=== PATIENT | female | born 1935 | race Caucasian/White ===

== ENCOUNTER 2016-12-12 08:07 | Emergency (ER) | payer MEDICARE, BC ==
[2016-12-12] MEDS ORDERED: SODIUM CHLORIDE 0.9% 500 ML IV STA (08:31)
--- NOTE | 2016-12-12 08:33 | ED ---
Abdominal Pain HPI - General Chief Complaint: Abdominal Pain Stated Complaint: abdominal pain Time Seen by Provider: 12/12/16 08:15 Source: patient, RN notes reviewed Mode of arrival: ambulatory Limitations: no limitations - History of Present Illness Initial Comments: 81-year-old female presents emergency Department with chief complaint of lower abdominal pain. Patient states she woke up with pain and swelling. Patient denies any dysuria, hematuria. Denies nausea, vomiting, diarrhea, constipation , fever, chills, back and flank pain. the room states that she has baseline confusion and bowel and bladder incontinence secondary to brain aneurysm. He states that she has recurrent urinary tract infections. She is rashes in her genital region she denies any other complaints at this time - Related Data Home Medications Medication Instructions Recorded Confirmed Aspirin [Aspirin] 162 mg PO DAILY 09/17/13 12/12/16 Atenolol 12.5 mg PO DAILY 09/17/13 12/12/16 Cranberry Conc/C/Bacill Coag 4,200 mg PO BID 09/17/13 12/12/16 [Cranberry Tablet] Docusate Sodium [Stool Softener] 300 mg PO DAILY 09/17/13 12/12/16 Famotidine [Pepcid] 20 mg PO DAILY 09/17/13 12/12/16 Melatonin 10 mg PO HS 09/17/13 12/12/16 Pravastatin Sodium [Pravachol] 20 mg PO DAILY 09/17/13 12/12/16 Vitamin A 8,000 unit PO BID 09/17/13 12/12/16 amLODIPine [Norvasc] 10 mg PO DAILY 09/17/13 12/12/16 hydrALAZINE HCL [Apresoline] 50 mg PO TID 09/17/13 12/12/16 Oxybutynin Chloride [Oxybutynin 10 mg PO DAILY 03/21/15 12/12/16 Chloride ER] Cephalexin [Keflex] 250 mg PO DAILY 12/12/16 12/12/16 LORazepam [Ativan] 0.5 mg PO HS 12/12/16 12/12/16 cloNIDine 0.1 MG/24HR PATCH 1 patch TRANSDERM SA 12/12/16 12/12/16 [Catapres-TTS] Previous Rx's Medication Instructions Recorded Nitrofurantoin Monohyd/M-Cryst 100 mg PO Q12HR #14 cap 12/12/16 [Macrobid] Allergies Allergy/AdvReac Type Severity Reaction Status Date / Time aloe vera Allergy Unknown Verified 12/12/16 08:54 amlodipine besylate Allergy Unknown Verified 12/12/16 08:54 [From Norvasc] cyclobenzaprine Allergy Unknown Verified 12/12/16 08:54 [Cyclobenzaprine] diclofenac Allergy Unknown Verified 12/12/16 08:54 hydrochlorothiazide Allergy Unknown Verified 12/12/16 08:54 [From Zestoretic] latex Allergy Unknown Verified 12/12/16 08:54 levofloxacin [From Levaquin] Allergy Unknown Verified 12/12/16 08:54 lisinopril Allergy Unknown Verified 12/12/16 08:54 mesalamine [From Asacol] Allergy Unknown Verified 12/12/16 08:54 sulfamethoxazole Allergy Unknown Verified 12/12/16 08:54 [From Bactrim] trimethoprim [From Bactrim] Allergy Unknown Verified 12/12/16 08:54 Review of Systems ROS Statement: Those systems with pertinent positive or pertinent negative responses have been documented in the HPI. ROS Other: All systems not noted in ROS Statement are negative. Past Medical History Past Medical History: Coronary Artery Disease (CAD), CVA/TIA, Deep Vein Thrombosis (DVT), GERD/Reflux, Hypertension Additional Past Medical History / Comment(s): constipation, brain aneurysm, urinary tract infections History of Any Multi-Drug Resistant Organisms: None Reported Additional Past Surgical History / Comment(s): brain, artem filter, hysterectomy Past Psychological History: No Psychological Hx Reported Smoking Status: Current every day smoker Past Alcohol Use History: None Reported Past Drug Use History: None Reported General Exam General appearance: alert, in no apparent distress Respiratory exam: Present: normal lung sounds bilaterally. Absent: respiratory distress, wheezes, rales, rhonchi, stridor Cardiovascular Exam: Present: regular rate, normal rhythm, normal heart sounds. Absent: systolic murmur, diastolic murmur, rubs, gallop, clicks GI/Abdominal exam: Present: soft, normal bowel sounds. Absent: distended, tenderness, guarding, rebound, rigid Back exam: Absent: CVA tenderness (R), CVA tenderness (L) Skin exam: Present: warm, dry, intact, normal color. Absent: rash Course Vital Signs 12/12/16 12/12/16 08:09 09:14 Temperature 99 F Pulse Rate 67 66 Respiratory 18 20 Rate Blood Pressure 150/66 128/67 O2 Sat by Pulse 98 Oximetry Medical Decision Making - Medical Decision Making 81-year-old female presented emergency from for lower abdominal pain. Patient has UTI. Patient be placed on antibiotics and discharged return parameters were discussed. - Lab Data Result diagrams: 12/12/16 08:28 12/12/16 08:28 Lab Results 12/12/16 12/12/16 12/12/16 Range/Units 08:28 08:28 08:41 WBC 7.1 (3.8-10.6) k/uL RBC 4.26 (3.80-5.40) m/uL Hgb 12.8 (11.4-16.0) gm/dL Hct 39.5 (34.0-46.0) % MCV 92.8 (80.0-100.0) fL MCH 30.2 (25.0-35.0) pg MCHC 32.5 (31.0-37.0) g/dL RDW 14.3 (11.5-15.5) % Plt Count 258 (150-450) k/uL Neutrophils % 68 % Lymphocytes % 19 % Monocytes % 9 % Eosinophils % 2 % Basophils % 1 % Neutrophils # 4.8 (1.3-7.7) k/uL Lymphocytes # 1.3 (1.0-4.8) k/uL Monocytes # 0.6 (0-1.0) k/uL Eosinophils # 0.1 (0-0.7) k/uL Basophils # 0.1 (0-0.2) k/uL Sodium 146 H (137-145) mmol/L Potassium 4.5 (3.5-5.1) mmol/L Chloride 111 H (98-107) mmol/L Carbon Dioxide 26 (22-30) mmol/L Anion Gap 9 mmol/L BUN 44 H (7-17) mg/dL Creatinine 1.09 H (0.52-1.04) mg/dL Est GFR (MDRD) Af Amer 59 (>60 ml/min/1.73 sqM) Est GFR (MDRD) Non-Af 48 (>60 ml/min/1.73 sqM) Glucose 83 (74-99) mg/dL Calcium 9.8 (8.4-10.2) mg/dL Total Bilirubin 0.5 (0.2-1.3) mg/dL AST 24 (14-36) U/L ALT 30 (9-52) U/L Alkaline Phosphatase 51 (38-126) U/L Total Protein 7.5 (6.3-8.2) g/dL Albumin 4.3 (3.5-5.0) g/dL Amylase 83 (30-110) U/L Lipase 100 (23-300) U/L Urine Color Yellow Urine Appearance Turbid H (Clear) Urine pH 6.0 (5.0-8.0) Ur Specific [place] 1.016 (1.001-1.035) Urine Protein 1+ H (Negative) Urine Glucose (UA) Negative (Negative) Urine Ketones Negative (Negative) Urine Blood Trace H (Negative) Urine Nitrite Negative (Negative) Urine Bilirubin Negative (Negative) Urine Urobilinogen <2.0 (<2.0) mg/dL Ur Leukocyte Esterase Large H (Negative) Urine RBC 7 H (0-5) /hpf Urine WBC >182 H (0-5) /hpf Urine WBC Clumps Many H (None) /hpf Urine Bacteria Few H (None) /hpf Urine Mucus Rare H (None) /hpf Disposition Clinical Impression: UTI (urinary tract infection) Disposition: HOME SELF-CARE Condition: Stable Instructions: Urinary Tract Infection in Women (ED) Additional Instructions: Please return to the Emergency Department if symptoms worsen or any other concerns. Prescriptions: Nitrofurantoin Monohyd/M-Cryst [Macrobid] 100 mg PO Q12HR #14 cap Referrals: Unruly Beltran MD [Primary Care Provider] - 1-2 days Time of Disposition: 09:37
[2016-12-12 08:45] LABS: Basophils # (A) 0.1 k/uL (0-0.2); Basophils % (A) 1 %; CH 30.6; CHCM 33.2; Eosinophils # (A) 0.1 k/uL (0-0.7); Eosinophils % (A) 2 %; HCT 39.5 % (34.0-46.0); HDW 2.22; HGB 12.8 gm/dL (11.4-16.0); Luc # (Auto) 0.17; Luc % (Auto) 2; Lymphocytes # (A) 1.3 k/uL (1.0-4.8); Lymphocytes % (A) 19 %; MCH 30.2 pg (25.0-35.0); MCHC 32.5 g/dL (31.0-37.0); MCV 92.8 fL (80.0-100.0); Mean Platelet Volume 7.9; Monocytes # (A) 0.6 k/uL (0-1.0); Monocytes % (A) 9 %; Neutrophils # (A) 4.8 k/uL (1.3-7.7); Neutrophils % (A) 68 %; RBC 4.26 m/uL (3.80-5.40); RDW 14.3 % (11.5-15.5); WBC 7.1 k/uL (3.8-10.6)
[2016-12-12 09:07] LABS: Appearance,Urine Turbid (Clear); Bacteria,Urine Few /hpf; Bilirubin,Urine Negative (Negative); Glucose,Urine (UA) Negative (Negative); Ketones,Urine Negative (Negative); Leukocyte Esterase,Urine Large (Negative); Mucus,Urine Rare /hpf; Nitrite,Urine Negative (Negative); Particle Count 61440; Protein,Urine 1+ (Negative); RBC,Urine 7 /hpf (0-5); Specific Gravity,Urine 1.016 (1.001-1.035); UA Billing (MACRO vs. MICRO) MICRO; Urobilinogen,Urine <2.0 mg/dL (<2.0); WBC,Urine >182 /hpf (0-5)
[2016-12-12 09:10] LABS: Calcium 9.8 mg/dL (8.4-10.2); Potassium 4.5 mmol/L (3.5-5.1); Total Bilirubin 0.5 mg/dL (0.2-1.3); Total Protein 7.5 g/dL (6.3-8.2)
--- NOTE | 2016-12-12 09:19 | XR ---
EXAMINATION TYPE: XR KUB DATE OF EXAM: 12/12/2016 COMPARISON: 01/30/2012 INDICATION: Lower abdominal pain and swelling TECHNIQUE: Single view abdomen FINDINGS: Psoas margins are normal. No organomegaly is present. Shunt catheter is present. Filter is within the inferior vena cava region. Multiple splenic granuloma are present. Fecal debris is within the colon. Nonspecific small bowel gas is present. IMPRESSION: 1. Nonspecific abdomen.
[2016-12-12] MEDS ORDERED: fentaNYL (PF) 50 MCG/ML 5 ML AMP IVP STA (09:35)
[2016-12-12 09:52] VITALS: BP 127/68; PULSE 56; RESP 18; TEMP 97
== END 2016-12-12 09:52 | disposition home or self-care (01) ==
LOC: EC 08:07
DX: N39.0 Urinary tract infection, site not specified (principal); R10.30 Lower abdominal pain, unspecified; I25.10 Atherosclerotic heart disease of native coronary artery without angina pectoris; K21.9 Gastro-esophageal reflux disease without esophagitis; I10 Essential (primary) hypertension; F17.200 Nicotine dependence, unspecified, uncomplicated; Z86.718 Personal history of other venous thrombosis and embolism; Z86.73 Personal history of transient ischemic attack (TIA), and cerebral infarction without residual deficits; Z79.82 Long term (current) use of aspirin; Z79.899 Other long term (current) drug therapy; Z88.1 Allergy status to other antibiotic agents; Z88.2 Allergy status to sulfonamides; Z88.8 Allergy status to other drugs, medicaments and biological substances; Z91.048 Other nonmedicinal substance allergy status; Z90.710 Acquired absence of both cervix and uterus
CPT/HCPCS: 36415; 74000; 80053; 81001; 82150; 83690; 85025; 96360; 99284

== ENCOUNTER 2019-02-18 14:13 | Emergency (ER) | payer MEDICARE, BC ==
[2019-02-18 14:21] VITALS: BP 140/75; PULSE 73; RESP 20; TEMP 98
[2019-02-18] MEDS ORDERED: Acetaminophen-Codeine 300-30mg TAB PO STA (14:45)
--- NOTE | 2019-02-18 15:05 | ED ---
General Adult HPI - General Chief complaint: Fall Stated complaint: fall down steps, rt side pain Time Seen by Provider: 02/18/19 14:22 Source: patient, RN notes reviewed, old records reviewed Mode of arrival: ambulatory Limitations: no limitations - History of Present Illness Initial comments: 83-year-old female patient with a past medical history significant for brain aneurysm which was coiled presents to ED from mechanical fall. Patient reports that she was walking down her front steps. States that they are approximately 4 inches high. Patient reports that she stumbled losing her balance fell forward. Patient reports that she fell on her right anterior chest region. Patient reports that she has pain in this region.. Patient denies any trauma to head or neck. Patient denies any use of blood thinners. Denies any shortness of breath. Systemic: Pt denies fatigue, fever/chills, rash. Pt denies weakness, night sweats, weight loss. Neuro: Pt denies headache, visual disturbances, syncope or pre-syncope. HEENT: Pt denies ocular discharge or irritation, otalgia, rhinorrhea, pharyngitis or notable lymphadenopathy. Cardiopulmonary: Pt denies SOB, heart palpitations, dyspnea on exertion. Abdominal/GI: Pt denies abdominal pain, n/v/d. : Pt denies dysuria, burning w/ urination, frequency/urgency. Denies new onset urinary or bowel incontinence. MSK: Pt denies myalgia, loss of strength or function in extremities. Neuro: Pt denies new onset weakness, paresthesias. - Related Data Home Medications Medication Instructions Recorded Confirmed Aspirin 162 mg PO DAILY 09/17/13 12/12/16 Atenolol 12.5 mg PO DAILY 09/17/13 12/12/16 Cranberry Conc/C/Bacill Coag 4,200 mg PO BID 09/17/13 12/12/16 [Cranberry Tablet] Docusate Sodium [Stool Softener] 300 mg PO DAILY 09/17/13 12/12/16 Famotidine [Pepcid] 20 mg PO DAILY 09/17/13 12/12/16 Melatonin 10 mg PO HS 09/17/13 12/12/16 Pravastatin Sodium [Pravachol] 20 mg PO DAILY 09/17/13 12/12/16 Vitamin A 8,000 unit PO BID 09/17/13 12/12/16 amLODIPine [Norvasc] 10 mg PO DAILY 09/17/13 12/12/16 hydrALAZINE HCL [Apresoline] 50 mg PO TID 09/17/13 12/12/16 Oxybutynin Chloride [Oxybutynin 10 mg PO DAILY 03/21/15 12/12/16 Chloride ER] Cephalexin [Keflex] 250 mg PO DAILY 12/12/16 12/12/16 LORazepam [Ativan] 0.5 mg PO HS 12/12/16 12/12/16 cloNIDine 0.1 MG/24HR PATCH 1 patch TRANSDERM SA 12/12/16 12/12/16 [Catapres-TTS] Previous Rx's Medication Instructions Recorded Nitrofurantoin Monohyd/M-Cryst 100 mg PO Q12HR #14 cap 12/12/16 [Macrobid] Allergies Allergy/AdvReac Type Severity Reaction Status Date / Time aloe vera Allergy Unknown Verified 02/18/19 14:21 amlodipine besylate Allergy Unknown Verified 02/18/19 14:21 [From Norvasc] cyclobenzaprine Allergy Unknown Verified 02/18/19 14:21 [Cyclobenzaprine] diclofenac Allergy Unknown Verified 02/18/19 14:21 hydrochlorothiazide Allergy Unknown Verified 02/18/19 14:21 [From Zestoretic] latex Allergy Unknown Verified 02/18/19 14:21 levofloxacin [From Levaquin] Allergy Unknown Verified 02/18/19 14:21 lisinopril Allergy Unknown Verified 02/18/19 14:21 mesalamine [From Asacol] Allergy Unknown Verified 02/18/19 14:21 sulfamethoxazole Allergy Unknown Verified 02/18/19 14:21 [From Bactrim] trimethoprim [From Bactrim] Allergy Unknown Verified 02/18/19 14:21 Review of Systems ROS Statement: Those systems with pertinent positive or pertinent negative responses have been documented in the HPI. ROS Other: All systems not noted in ROS Statement are negative. Past Medical History Past Medical History: Coronary Artery Disease (CAD), CVA/TIA, Deep Vein Thrombosis (DVT), GERD/Reflux, Hypertension Additional Past Medical History / Comment(s): constipation, brain aneurysm, urinary tract infections History of Any Multi-Drug Resistant Organisms: None Reported Additional Past Surgical History / Comment(s): brain, artem filter, hysterectomy Past Psychological History: No Psychological Hx Reported Smoking Status: Current every day smoker Past Alcohol Use History: None Reported Past Drug Use History: None Reported General Exam - General Exam Comments Initial Comments: Constitutional: NAD, AOX3, Pt has pleasant affect. HEENT: NC/AT, trachea midline, neck supple, no lymphadenopathy. Posterior pharynx non erythematous, without exudates. External ears appear normal, without discharge. Mucous membranes moist. Eyes PERRLA, EOM intact. There is no scleral icterus. No pallor noted. Cardiopulmonary: RRR, no murmurs, rubs or gallops, no JVD noted. Lungs CTAB in anterior and posterior bateman. No peripheral edema. Right anterior chest region mildly tender to palpation. No ecchymoses. No crepitus. Abdominal exam: Abdomen soft and non-distended. Abdomen non-tender to palpation in all 4 quadrants. Bowel sounds active in LLQ. No hepatosplenomegaly. No ecchymosis Neuro: CN II-XII grossly intact. No nuchal rigidity. No raccon eyes, no moore sign, no hemotympanum. No cervical spinal tenderness. MSK: No posterior calf tenderness bilaterally, homans sign negative bilaterally. Posterior tibialis and radial pulse +2 bilaterally. Sensation intact in upper and lower extremities. Full active ROM in upper and lower extremities, 5/5 stregnth. Limitations: no limitations Course Vital Signs 02/18/19 14:18 Temperature 98.0 F Pulse Rate 73 Respiratory 20 Rate Blood Pressure 140/75 O2 Sat by Pulse 97 Oximetry Medical Decision Making - Medical Decision Making 83-year-old female patient with a past medical history significant for brain aneurysm which was coiled presents to ED from mechanical fall. Patient reports that she was walking down her front steps. States that they are approximately 4 inches high. Patient reports that she stumbled losing her balance fell forward. Patient reports that she fell on her right anterior chest region. Patient reports that she has pain in this region.. Patient denies any trauma to head or neck. Patient denies any use of blood thinners. Denies any shortness of breath. Patient vital signs stable, afebrile. Physical exam displayed: Lungs CTAB in anterior and posterior bateman. No peripheral edema. Right anterior chest region mildly tender to palpation. No ecchymoses. No crepitus. Chest revealed no acute cardiopulmonary process. Patient likely experiencing muscle skeletal pain. Patient was discharged with follow-up with primary care provider. Return to ER condition worsens. Case discussed with Dr. Barrett. Disposition Clinical Impression: Fall Disposition: HOME SELF-CARE Condition: Stable Instructions (If sedation given, give patient instructions): Fall Prevention (ED) Additional Instructions: Patient to adhere to previously discussed treatment plan and will take medication(s) as directed. Patient to follow up with PCP in 1-2 days. Patient to return to ED if symptoms do not improve. Follow-up with primary care provider tomorrow. Return to ER if condition worsens. Is patient prescribed a controlled substance at d/c from ED?: No Referrals: Unruly Beltran MD [Primary Care Provider] - 1-2 days
--- NOTE | 2019-02-18 15:23 | XR ---
EXAMINATION TYPE: XR chest 2V DATE OF EXAM: 02/18/2019 COMPARISON: 09/17/2013 HISTORY: Right-sided pain after a fall today TECHNIQUE: Frontal and lateral views of the chest are obtained. FINDINGS: There is no focal air space opacity, pleural effusion, or pneumothorax seen. The cardiac silhouette size is upper limits of normal. Mild multilevel degenerative changes of the spine. The os seous structures are intact. Ventriculoperitoneal drainage catheter overlies the right hemithorax wit hout discontinuity or calcifications. IMPRESSION: No acute cardiopulmonary process.
[2019-02-18] MEDS ORDERED: ACET/COD 300 MG/30 MG STARTER PACK 6 TAB BTL PO STA (15:44)
== END 2019-02-18 15:55 | disposition home or self-care (01) ==
LOC: EC 14:13
DX: R07.89 Other chest pain (principal); I25.10 Atherosclerotic heart disease of native coronary artery without angina pectoris; I10 Essential (primary) hypertension; K21.9 Gastro-esophageal reflux disease without esophagitis; K59.00 Constipation, unspecified; F17.200 Nicotine dependence, unspecified, uncomplicated; Z88.1 Allergy status to other antibiotic agents; Z88.2 Allergy status to sulfonamides; Z88.6 Allergy status to analgesic agent; Z88.8 Allergy status to other drugs, medicaments and biological substances; Z91.040 Latex allergy status; Z91.048 Other nonmedicinal substance allergy status; Z79.82 Long term (current) use of aspirin; Z79.899 Other long term (current) drug therapy; Z87.440 Personal history of urinary (tract) infections; Z86.79 Personal history of other diseases of the circulatory system; Z95.828 Presence of other vascular implants and grafts; Z86.73 Personal history of transient ischemic attack (TIA), and cerebral infarction without residual deficits; W10.9XXA Fall (on) (from) unspecified stairs and steps, initial encounter; Y93.01 Activity, walking, marching and hiking; Y92.009 Unspecified place in unspecified non-institutional (private) residence as the place of occurrence of the external cause
CPT/HCPCS: 71046; 99284

== ENCOUNTER 2019-04-05 09:01 | Observation (INO) | payer MEDICARE, BC ==
[2019-04-05 09:11] VITALS: RESP 18
[2019-04-05] MEDS ORDERED: SODIUM CHLORIDE 0.9% 500 ML 500 ML IV STA (09:22)
--- NOTE | 2019-04-05 09:26 | ED ---
General Adult HPI - General Chief complaint: Abdominal Pain Stated complaint: abd pain Time Seen by Provider: 04/05/19 09:05 Source: patient, family, RN notes reviewed, old records reviewed Mode of arrival: ambulatory Limitations: no limitations - History of Present Illness Initial comments: This is an 83-year-old female presents emergency Department complaining of lower abdominal pain. Patient states is worse on the right than the left. Patient has had an appendectomy and a hysterectomy in the past. Patient states started 5 AM this morning he continues currently. Patient states she's had no nausea vomiting or diarrhea per patient denies any fever chills. Patient states the pain is still there but not as bad as it was earlier. Patient denies any chest pain difficulty breathing shortest breath per patient denies any lightheadedness or dizziness. Patient denies any back pain. Patient denies any dysuria hematuria urinary frequency. - Related Data Home Medications Medication Instructions Recorded Confirmed Aspirin 162 mg PO DAILY 09/17/13 12/12/16 Atenolol 12.5 mg PO DAILY 09/17/13 12/12/16 Cranberry Conc/C/Bacill Coag 4,200 mg PO BID 09/17/13 12/12/16 [Cranberry Tablet] Docusate Sodium [Stool Softener] 300 mg PO DAILY 09/17/13 12/12/16 Famotidine [Pepcid] 20 mg PO DAILY 09/17/13 12/12/16 Melatonin 10 mg PO HS 09/17/13 12/12/16 Pravastatin Sodium [Pravachol] 20 mg PO DAILY 09/17/13 12/12/16 Vitamin A 8,000 unit PO BID 09/17/13 12/12/16 amLODIPine [Norvasc] 10 mg PO DAILY 09/17/13 12/12/16 hydrALAZINE HCL [Apresoline] 50 mg PO TID 09/17/13 12/12/16 Oxybutynin Chloride [Oxybutynin 10 mg PO DAILY 03/21/15 12/12/16 Chloride ER] Cephalexin [Keflex] 250 mg PO DAILY 12/12/16 12/12/16 LORazepam [Ativan] 0.5 mg PO HS 12/12/16 12/12/16 cloNIDine 0.1 MG/24HR PATCH 1 patch TRANSDERM SA 12/12/16 12/12/16 [Catapres-TTS] Previous Rx's Medication Instructions Recorded Nitrofurantoin Monohyd/M-Cryst 100 mg PO Q12HR #14 cap 12/12/16 [Macrobid] Allergies Allergy/AdvReac Type Severity Reaction Status Date / Time aloe vera Allergy Unknown Verified 04/05/19 09:06 amlodipine besylate Allergy Unknown Verified 04/05/19 09:06 [From Norvasc] cyclobenzaprine Allergy Unknown Verified 04/05/19 09:06 [Cyclobenzaprine] diclofenac Allergy Unknown Verified 04/05/19 09:06 hydrochlorothiazide Allergy Unknown Verified 04/05/19 09:06 [From Zestoretic] latex Allergy Unknown Verified 04/05/19 09:06 levofloxacin [From Levaquin] Allergy Unknown Verified 04/05/19 09:06 lisinopril Allergy Unknown Verified 04/05/19 09:06 mesalamine [From Asacol] Allergy Unknown Verified 04/05/19 09:06 sulfamethoxazole Allergy Unknown Verified 04/05/19 09:06 [From Bactrim] trimethoprim [From Bactrim] Allergy Unknown Verified 04/05/19 09:06 Review of Systems ROS Statement: Those systems with pertinent positive or pertinent negative responses have been documented in the HPI. ROS Other: All systems not noted in ROS Statement are negative. Past Medical History Past Medical History: Coronary Artery Disease (CAD), CVA/TIA, Deep Vein Thrombosis (DVT), GERD/Reflux, Hypertension Additional Past Medical History / Comment(s): constipation, brain aneurysm, urinary tract infections History of Any Multi-Drug Resistant Organisms: None Reported Additional Past Surgical History / Comment(s): brain, artem filter, hysterectomy Past Psychological History: No Psychological Hx Reported Smoking Status: Former smoker Past Alcohol Use History: None Reported Past Drug Use History: None Reported General Exam - General Exam Comments Initial Comments: GENERAL: Patient is well-developed and well-nourished. Patient is nontoxic and well- hydrated and is in mild distress. ENT: Neck is soft and supple. No significant lymphadenopathy is noted. Oropharynx is clear. Moist mucous membranes. Neck has full range of motion without eliciting any pain. EYES: The sclera were anicteric and conjunctiva were pink and moist. Extraocular movements were intact and pupils were equal round and reactive to light. Eyelids were unremarkable. PULMONARY: Unlabored respirations. Good breath sounds bilaterally. No audible rales rhonchi or wheezing was noted. CARDIOVASCULAR: There is a regular rate and rhythm without any murmurs gallops or rubs. ABDOMEN: Patient has tenderness across the lower quadrants worse on the right than the left. SKIN: Skin is clear with no lesions or rashes and otherwise unremarkable. NEUROLOGIC: Patient is alert and oriented x3. Cranial nerves II through XII are grossly intact. Motor and sensory are also intact. Normal speech, volume and content. Symmetrical smile. MUSCULOSKELETAL: Normal extremities with adequate strength and full range of motion. No lower extremity swelling or edema. No calf tenderness. LYMPHATICS: No significant lymphadenopathy is noted PSYCHIATRIC: Normal psychiatric evaluation. Limitations: no limitations Course Vital Signs 04/05/19 04/05/19 09:07 11:50 Temperature 98 F Pulse Rate 80 96 Respiratory 18 18 Rate Blood Pressure 170/97 147/95 O2 Sat by Pulse 95 98 Oximetry Medical Decision Making - Medical Decision Making Computed tomography scan shows some free fluid in the right adnexa as well as some thickened bowel. I went back and reexamined the patient she still was exquisitely tender right lower quadrant and this point time I spoke with Dr. Damon and consult surgery and wrote admitting orders. - Lab Data Result diagrams: 04/05/19 09:43 04/05/19 09:43 Lab Results 04/05/19 04/05/19 04/05/19 Range/Units 09:43 09:43 09:43 WBC 6.8 (3.8-10.6) k/uL RBC 4.55 (3.80-5.40) m/uL Hgb 13.3 (11.4-16.0) gm/dL Hct 40.4 (34.0-46.0) % MCV 88.7 (80.0-100.0) fL MCH 29.3 (25.0-35.0) pg MCHC 33.0 (31.0-37.0) g/dL RDW 14.0 (11.5-15.5) % Plt Count 308 (150-450) k/uL Neutrophils % 68 % Lymphocytes % 16 % Monocytes % 9 % Eosinophils % 2 % Basophils % 3 % Neutrophils # 4.6 (1.3-7.7) k/uL Lymphocytes # 1.1 (1.0-4.8) k/uL Monocytes # 0.6 (0-1.0) k/uL Eosinophils # 0.1 (0-0.7) k/uL Basophils # 0.2 (0-0.2) k/uL Sodium 143 (137-145) mmol/L Potassium 3.8 (3.5-5.1) mmol/L Chloride 107 (98-107) mmol/L Carbon Dioxide 26 (22-30) mmol/L Anion Gap 10 mmol/L BUN 17 (7-17) mg/dL Creatinine 0.81 (0.52-1.04) mg/dL Est GFR (CKD-EPI)AfAm 79 (>60 ml/min/1.73 sqM) Est GFR (CKD-EPI)NonAf 69 (>60 ml/min/1.73 sqM) Glucose 88 (74-99) mg/dL Plasma Lactic Acid Rick 1.0 (0.7-2.0) mmol/L Calcium 9.9 (8.4-10.2) mg/dL Total Bilirubin 0.4 (0.2-1.3) mg/dL AST 21 (14-36) U/L ALT 20 (9-52) U/L Alkaline Phosphatase 82 (38-126) U/L Total Protein 7.4 (6.3-8.2) g/dL Albumin 4.1 (3.5-5.0) g/dL Amylase 80 (30-110) U/L Lipase 113 (23-300) U/L Urine Color Urine Appearance (Clear) Urine pH (5.0-8.0) Ur Specific [place] (1.001-1.035) Urine Protein (Negative) Urine Glucose (UA) (Negative) Urine Ketones (Negative) Urine Blood (Negative) Urine Nitrite (Negative) Urine Bilirubin (Negative) Urine Urobilinogen (<2.0) mg/dL Ur Leukocyte Esterase (Negative) 04/05/19 Range/Units 10:32 WBC (3.8-10.6) k/uL RBC (3.80-5.40) m/uL Hgb (11.4-16.0) gm/dL Hct (34.0-46.0) % MCV (80.0-100.0) fL MCH (25.0-35.0) pg MCHC (31.0-37.0) g/dL RDW (11.5-15.5) % Plt Count (150-450) k/uL Neutrophils % % Lymphocytes % % Monocytes % % Eosinophils % % Basophils % % Neutrophils # (1.3-7.7) k/uL Lymphocytes # (1.0-4.8) k/uL Monocytes # (0-1.0) k/uL Eosinophils # (0-0.7) k/uL Basophils # (0-0.2) k/uL Sodium (137-145) mmol/L Potassium (3.5-5.1) mmol/L Chloride (98-107) mmol/L Carbon Dioxide (22-30) mmol/L Anion Gap mmol/L BUN (7-17) mg/dL Creatinine (0.52-1.04) mg/dL Est GFR (CKD-EPI)AfAm (>60 ml/min/1.73 sqM) Est GFR (CKD-EPI)NonAf (>60 ml/min/1.73 sqM) Glucose (74-99) mg/dL Plasma Lactic Acid Rick (0.7-2.0) mmol/L Calcium (8.4-10.2) mg/dL Total Bilirubin (0.2-1.3) mg/dL AST (14-36) U/L ALT (9-52) U/L Alkaline Phosphatase (38-126) U/L Total Protein (6.3-8.2) g/dL Albumin (3.5-5.0) g/dL Amylase (30-110) U/L Lipase (23-300) U/L Urine Color Light Yellow Urine Appearance Clear (Clear) Urine pH 7.0 (5.0-8.0) Ur Specific [place] 1.006 (1.001-1.035) Urine Protein Negative (Negative) Urine Glucose (UA) Negative (Negative) Urine Ketones Negative (Negative) Urine Blood Negative (Negative) Urine Nitrite Negative (Negative) Urine Bilirubin Negative (Negative) Urine Urobilinogen <2.0 (<2.0) mg/dL Ur Leukocyte Esterase Negative (Negative) Disposition Clinical Impression: Abdominal pain Disposition: ADMITTED IP TO THIS HOSP Referrals: Unruly Beltran MD [Primary Care Provider] - 1-2 days Time of Disposition: 12:02
[2019-04-05 10:02] LABS: Basophils # (A) 0.2 k/uL (0-0.2); Basophils % (A) 3 %; Eosinophils # (A) 0.1 k/uL (0-0.7); Eosinophils % (A) 2 %; HCT 40.4 % (34.0-46.0); HGB 13.3 gm/dL (11.4-16.0); Lymphocytes # (A) 1.1 k/uL (1.0-4.8); Lymphocytes % (A) 16 %; MCH 29.3 pg (25.0-35.0); MCV 88.7 fL (80.0-100.0); Mean Platelet Volume 7.1; Monocytes # (A) 0.6 k/uL (0-1.0); Monocytes % (A) 9 %; Neutrophils # (A) 4.6 k/uL (1.3-7.7); Neutrophils % (A) 68 %; Platelet Count 308 k/uL (150-450); RBC 4.55 m/uL (3.80-5.40); WBC 6.8 k/uL (3.8-10.6)
[2019-04-05 10:22] LABS: Albumin 4.1 g/dL (3.5-5.0); Calcium 9.9 mg/dL (8.4-10.2); Potassium 3.8 mmol/L (3.5-5.1); Total Bilirubin 0.4 mg/dL (0.2-1.3); Total Protein 7.4 g/dL (6.3-8.2)
[2019-04-05 11:10] LABS: Appearance,Urine Clear (Clear); Bilirubin,Urine Negative (Negative); Blood,Urine Negative (Negative); Color,Urine Light Yellow; Glucose,Urine (UA) Negative (Negative); Ketones,Urine Negative (Negative); Leukocyte Esterase,Urine Negative (Negative); Nitrite,Urine Negative (Negative); Protein,Urine Negative (Negative); Specific Gravity,Urine 1.006 (1.001-1.035); Urobilinogen,Urine <2.0 mg/dL (<2.0)
--- NOTE | 2019-04-05 11:37 | CT ---
EXAMINATION TYPE: CT abdomen pelvis w con DATE OF EXAM: 04/05/2019 COMPARISON: 09/17/2013 HISTORY: 83-year-old female with lower abdominal pain TECHNIQUE: Contiguous axial scanning of the abdomen and pelvis following administration of 100 ml Iso loki 300 IV contrast. Delayed images through the kidneys and coronal/sagittal reconstructions perform ed. CT DLP: 794.9 mGycm Automated exposure control for dose reduction was used. FINDINGS: Heart upper limits of normal in size with the interpretation. Some mild patchy peripheral right basil ar opacity, probably atelectasis. No pleural effusion. Small hiatal hernia. Few scattered calcified granulomas within the liver. More numerous calcified granulomas within the sp carolann. No biliary ductal dictation. Portal venous system is patent. Gallbladder, adrenal glands, and pancreas show no gross abnormality. A 4.4 cm posterior lower pole right renal cyst is increased in size from 3.6 cm, previously. Mild bilateral pelvicaliectasis, probably transient. Symmetric uptake and excretion of contrast from both kidneys. An IVC filter is present. Moderate atherosclerotic calcification of the abdominal aorta and iliac arteries without aneurysm. Right-sided [facility] shunt catheter enters the right mid to lower abdomen. No dilated small bowel, free fluid, or free air. No mesenteric or retroperitoneal lymphadenopathy. There is moderate to large stool burden. Left-sided colonic diverticulosis, most extensive within the sigmoid colon. No discrete pericolonic inflammation to suggest acute diverticulitis. Portions of the mandible are noted extending into the right adnexa. No evident abnormal fluid distent ion of the appendix. The distal aspect is obscured by adjacent bowel loops. Gisele of right adnexal free fluid is noted of unclear etiology. Focal circumferential wall thickening distal sigmoid colon, for example, refer to axial image 61 and sagittal image 53. Bladder are distended with mild wall thickening. Multiple pelvic phleboliths. Uterus surgically absen t. Neither ovary is visualized. Bones: Degenerative changes of the hips. Hypertrophic facet arthropathy mid to lower lumbar spine wit h severe degenerative disc disease L4-L5 and grade 1, nearly grade 2 anterolisthesis at this level. IMPRESSION: 1. LEFT-SIDED COLONIC DIVERTICULOSIS, EXTENSIVE WITHIN THE SIGMOID COLON. WHILE THERE ARE NO DISCRETE FINDINGS OF ACUTE DIVERTICULITIS, THERE IS SOME FOCAL WALL THICKENING ALONG THE DISTAL SIGMOID. NONS PECIFIC COLITIS AND NEOPLASM ARE IN THE DIFFERENTIAL. DIRECT VISUALIZATION WHEN PATIENT ABLE. 2. SMALL AMOUNT OF FREE FLUID WITHIN THE RIGHT ADNEXA. 3. THE APPENDIX IS VISUALIZED AND WHILE MILDLY THICKENED, EXTENDING DOWN INTO THE RIGHT ADNEXA, THERE IS NO ABNORMAL FLUID DISTENTION OR SURROUNDING INFLAMMATION. GIVEN THE ADJACENT RIGHT ADNEXAL FREE F LUID, CONSIDER SHORT INTERVAL CLINICAL AND IMAGING FOLLOW-UP INDICATED. 4. MODERATE TO LARGE STOOL BURDEN.
[2019-04-05] MEDS ORDERED: HYDROmorphone 0.5 MG/0.5 ML SYRINGE IVP STA (11:44)
[2019-04-05] MEDS ORDERED: SODIUM CHLORIDE 0.9% 1,000 ML IV ONE (12:03)
[2019-04-05] MEDS ORDERED: HYDROmorphone 0.5 MG/0.5 ML SYRINGE IVP PRN (12:04)
[2019-04-05] MEDS ORDERED: SENNOSIDES 8.6 MG TAB PO PRN (13:42)
[2019-04-05] MEDS ORDERED: DOCUSATE 100 MG CAP PO PRN (13:42)
--- NOTE | 2019-04-05 14:49 | P.HPIM ---
History of Present Illness H&P Date: 04/05/19 83 years old female with past medical history of coronary artery disease, CVA, history of cerebral aneurysm status post coiling, history of DVT with history of [place] filter, GERD, hypertension presents in with right lower quadrant abdominal pain started this morning. According to the at bedside patient does have constipation and has intermittent abdominal pain that improves with bowel regimen. Patient used to informed her about her bowel habits blood for the past 2 months past and is not keeping an eye on her bowel pattern. Patient denies any fever or chills, any diarrhea or melena. She denies any nausea or vomiting. Vitals suggest a temp of 98.2 pulse 72 blood pressure 157/100. Labs including a CBC CMP unremarkable. UA is negative for any acute infection. Patient is admitted in observation for evaluation by surgery as free adnexal fluid was noted on the CT abdomen. Left-sided colonic diverticulosis noted with focal wall thickening along the distal sigmoid. Direct visualization of the sigmoid area was recommended for nonspecific colitis versus name, pleasant. Moderate to large stone burden was noted. Patient is initiated on bowel regimen 8 daily and Dulcolax suppository as needed including Review of Systems Constitutional: Denies chills, Denies fever, Denies lethargy, Denies malaise, Denies poor appetite, Denies weakness, Denies weight loss Eyes: denies decreased vision, denies diplopia, denies discharge, denies pain Ears: deny: decreased hearing Ears, nose, mouth and throat: Denies dental pain, Denies headache, Denies nasal discharge, Denies nose pain Cardiovascular: Denies chest pain, Denies decreased exercise tolerance, Denies edema, Denies high blood pressure, Denies irregular heart beat, Denies palpitations, Denies paroxysmal nocturnal dyspnea, Denies rapid heart beat, Denies shortness of breath Respiratory: Denies congestion, Denies cough, Denies cough with sputum, Denies dyspnea, Denies home oxygen, Denies wheezing Gastrointestinal: Endorses abdominal pain, Denies change in bowel habits, Denies coffee ground emesis, Denies early satiety, Denies excessive gas, Denies heartburn, Denies hematemesis, Denies hematochezia, Denies loss of appetite, Denies nausea, Denies vomiting Genitourinary: Denies dysuria, Denies flank pain, Denies kidney stones, Denies menorrhagia, Denies urgency, Denies urinary frequency Musculoskeletal: Denies gait dysfunction, Denies limitation of motion, Denies morning stiffness, Denies muscle cramps Integumentary: Denies rash, Denies wounds, Denies brittle nails, Denies change in hair/nails, Denies darkening of skin Neurological: Denies balance difficulties, Denies change in speech, Denies double vision, Denies gait dysfunction, Denies loss of vision, Denies motor disturbance, Denies numbness, Denies paralysis, Denies paresthesias, Denies seizures Psychiatric: Denies anxiety, Denies depression Endocrine: Denies excessive sweating, Denies excessive thirst, Denies high blood sugars, Denies palpitations Hematologic/Lymphatic: Denies easy bruising, Denies lymphadenopathy Past Medical History Past Medical History: Coronary Artery Disease (CAD), CVA/TIA, Deep Vein Thrombosis (DVT), GERD/Reflux, Hypertension Additional Past Medical History / Comment(s): constipation, brain aneurysm, urinary tract infections History of Any Multi-Drug Resistant Organisms: None Reported Additional Past Surgical History / Comment(s): brain, artem filter, hysterectomy Past Psychological History: No Psychological Hx Reported Smoking Status: Former smoker Past Alcohol Use History: None Reported Past Drug Use History: None Reported Medications and Allergies Home Medications Medication Instructions Recorded Confirmed Type Aspirin 81 mg PO DAILY@1500 09/17/13 04/05/19 History Cranberry Conc/C/Bacill Coag 4,200 mg PO BID 09/17/13 04/05/19 History [Cranberry Tablet] Docusate Sodium [Stool Softener] 300 mg PO DAILY@1500 09/17/13 04/05/19 History Famotidine [Pepcid] 20 mg PO HS@1900 09/17/13 04/05/19 History Melatonin 10 mg PO HS@1900 09/17/13 04/05/19 History Pravastatin Sodium [Pravachol] 20 mg PO DAILY 09/17/13 04/05/19 History Vitamin A 8,000 unit PO BID 09/17/13 04/05/19 History amLODIPine [Norvasc] 10 mg PO DAILY 09/17/13 04/05/19 History hydrALAZINE HCL [Apresoline] 50 mg PO TID 09/17/13 04/05/19 History cloNIDine 0.1 MG/24HR PATCH 1 patch TRANSDERM SA 12/12/16 04/05/19 History [Catapres-TTS] Bifidobacterium Infantis [Align] 4 mg PO DAILY@1500 04/05/19 04/05/19 History Calcium Carbonate [Calcium] 600 mg PO DAILY@1500 04/05/19 04/05/19 History Metoprolol Succinate (ER) [Toprol 12.5 mg PO HS@1900 04/05/19 04/05/19 History Xl] Nitrofurantoin Monohyd/M-Cryst 100 mg PO DAILY 04/05/19 04/05/19 History [Macrobid] Vit A/Vit C/Vit E/Zinc/Copper 1 cap PO BID@0700,1900 04/05/19 04/05/19 History [ICAPS SOFTGEL] Allergies Allergy/AdvReac Type Severity Reaction Status Date / Time aloe vera Allergy Unknown Verified 04/05/19 12:43 amlodipine besylate Allergy Unknown Verified 04/05/19 12:43 [From Norvasc] cyclobenzaprine Allergy Unknown Verified 04/05/19 12:43 [Cyclobenzaprine] diclofenac Allergy Unknown Verified 04/05/19 12:43 hydrochlorothiazide Allergy Unknown Verified 04/05/19 12:43 [From Zestoretic] latex Allergy Unknown Verified 04/05/19 12:43 levofloxacin [From Levaquin] Allergy Unknown Verified 04/05/19 12:43 lisinopril Allergy Unknown Verified 04/05/19 12:43 mesalamine [From Asacol] Allergy Unknown Verified 04/05/19 12:43 sulfamethoxazole Allergy Unknown Verified 04/05/19 12:43 [From Bactrim] trimethoprim [From Bactrim] Allergy Unknown Verified 04/05/19 12:43 Physical Exam Vitals: Vital Signs Temp Pulse Pulse Resp BP BP Pulse Ox 04/05/19 12:58 98.2 F 72 18 157/100 97 04/05/19 11:50 96 18 147/95 98 04/05/19 09:07 98 F 80 18 170/97 95 Intake and Output 04/04/19 04/05/19 04/05/19 22:59 06:59 14:59 Other: # Voids 1 Weight 65.7 kg - Constitutional General appearance: cooperative, no acute distress, obese - EENT Eyes: anicteric sclerae, PERRLA, normal appearance ENT: hearing grossly normal - Neck Neck: no lymphadenopathy, normal ROM, no other, no rigidity, no stridor, no thyromegaly - Respiratory Respiratory: bilateral: CTA, negative: diminished, dullness, rales, rhonchi - Cardiovascular Rhythm: regular Heart sounds: normal: S1, S2 Abnormal Heart Sounds: no systolic murmur, no diastolic murmur, no rub, no S3 Gallop, no S4 Gallop, no click, no other - Gastrointestinal General gastrointestinal: normal bowel sounds, soft tender right lower quadrant radiating to the umbilicus. - Integumentary Integumentary: no rash - Neurologic Neurologic: CNII-XII intact - Musculoskeletal Musculoskeletal: gait normal, strength equal bilaterally - Psychiatric Psychiatric: A&O x's 3, appropriate affect Results CBC & Chem 7: 04/05/19 09:43 04/05/19 09:43 Thrombosis Risk Factor Assmnt - DVT/VTE Prophylaxis DVT/VTE Prophylaxis: Mechanical Prophylaxis ordered - Choose All That Apply Any of the Below Risk Factors Present?: No Other Risk Factors: Yes Each Risk Factor Represents 3 Points: Age 75 years or older Thrombosis Risk Factor Assessment Total Risk Factor Score: 3 Thrombosis Risk Factor Assessment Level: Moderate Risk Assessment and Plan Plan: #1 acute abdomen right lower quadrant secondary to constipation. Free fluid in the right adnexa could not be explained. We will have her surgery consulted for their recommendation on follow-up CT in few weeks for resolution of the adnexal fluid. We will start patient on Dulcolax suppository, senna Colace and MiraLAX #2 history of CVA continue aspirin and pravastatin #3 history of cerebral aneurysm s/p clipping #4 Vascular dementia secondary to CVA currenly not on any medication to be followed as outpatient #5 hypertension continue hydralazine, clonidine, metoprolol. Will be adjusted based on the blood pressure reading #6 insomnia continue melatonin 10 mg o daily #7 DVT prophylaxis mechanical prophylaxis #8 disposition patient would need 24 hours observation and can be discharged after evaluation by surgery if no intervention required
[2019-04-05] MEDS ORDERED: ASPIRIN 81 MG PO SCH (15:00)
[2019-04-05] MEDS ORDERED: DOCUSATE 100 MG CAP PO SCH (15:00)
[2019-04-05] MEDS ORDERED: LACTOBACILLUS ACIDOPH & BULGAR 1 EACH PACKET PO SCH (15:00)
[2019-04-05 15:41] VITALS: BP 160/90; PULSE 69; TEMP 97.3
--- NOTE | 2019-04-05 15:41 | P.DS ---
Providers Date of admission: 04/05/19 12:03 Attending physician: Tara Damon MD Consults: 04/05/19 12:03 Consult Physician Urgent Consulting Provider: Jovanni Macias Consult Reason/Comments: Abdominal pain Do you want consulting provider notified?: Yes Primary care physician: [facility] Course: 83 years old female with past medical history of coronary artery disease, CVA, history of cerebral aneurysm status post coiling, history of DVT with history of [place] filter, GERD, hypertension presents in with right lower quadrant abdominal pain started this morning. According to the at bedside patient does have constipation and has intermittent abdominal pain that improves with bowel regimen. Patient used to informed her about her bowel habits blood for the past 2 months past and is not keeping an eye on her bowel pattern. Patient denies any fever or chills, any diarrhea or melena. She denies any nausea or vomiting. Vitals suggest a temp of 98.2 pulse 72 blood pressure 157/100. Labs including a CBC CMP unremarkable. UA is negative for any acute infection. Patient is admitted in observation for evaluation by surgery as free adnexal fluid was noted on the CT abdomen. Left-sided colonic diverticulosis noted with focal wall thickening along the distal sigmoid. Direct visualization of the sigmoid area was recommended for nonspecific colitis versus name, pleasant. Moderate to large stone burden was noted. Patient is initiated on bowel regimen daily and Dulcolax suppository as needed. Patient was evaluated by surgery who recommended no surgical intervention with and plan for outpatient colonoscopy on Thursday. Patient will be prescribed GoLYTELY by the surgery team. Discharge diagnoses #1 acute abdomen right lower quadrant secondary to constipation. #2 Free fluid in the right adnexa with focal sigmoid thickening rule out neoplasm plan for colonoscopy as outpatient #2 history of CVA #3 history of cerebral aneurysm s/p clipping #4 Vascular dementia secondary to CVA #5 hypertension #6 insomnia Disposition - home Plan - Discharge Summary Discharge Rx Participant: No New Discharge Prescriptions: New Peg 3350-Na Sulf,Bicarb,Cl/KCl [Golytely Lavage] 4,000 ml PO DIRECTED #1 bottle Continue Famotidine [Pepcid] 20 mg PO HS@1900 Cranberry Conc/C/Bacill Coag [Cranberry Tablet] 4,200 mg PO BID Melatonin 10 mg PO HS@1900 Docusate Sodium [Stool Softener] 300 mg PO DAILY@1500 Aspirin 81 mg PO DAILY@1500 Vitamin A 8,000 unit PO BID Pravastatin Sodium [Pravachol] 20 mg PO DAILY hydrALAZINE HCL [Apresoline] 50 mg PO TID amLODIPine [Norvasc] 10 mg PO DAILY cloNIDine 0.1 MG/24HR PATCH [Catapres-TTS] 1 patch TRANSDERM SA Bifidobacterium Infantis [Align] 4 mg PO DAILY@1500 Calcium Carbonate [Calcium] 600 mg PO DAILY@1500 Metoprolol Succinate (ER) [Toprol XL] 12.5 mg PO HS@1900 Nitrofurantoin Monohyd/M-Cryst [Macrobid] 100 mg PO DAILY Vit A/Vit C/Vit E/Zinc/Copper [ICAPS SOFTGEL] 1 cap PO BID@0700,1900 Discharge Medication List Aspirin 81 mg PO DAILY@1500 09/17/13 [History] Cranberry Conc/C/Bacill Coag [Cranberry Tablet] 4,200 mg PO BID 09/17/13 [History] Docusate Sodium [Stool Softener] 300 mg PO DAILY@1500 09/17/13 [History] Famotidine [Pepcid] 20 mg PO HS@1900 09/17/13 [History] Melatonin 10 mg PO HS@1900 09/17/13 [History] Pravastatin Sodium [Pravachol] 20 mg PO DAILY 09/17/13 [History] Vitamin A 8,000 unit PO BID 09/17/13 [History] amLODIPine [Norvasc] 10 mg PO DAILY 09/17/13 [History] hydrALAZINE HCL [Apresoline] 50 mg PO TID 09/17/13 [History] cloNIDine 0.1 MG/24HR PATCH [Catapres-TTS] 1 patch TRANSDERM SA 12/12/16 [History] Bifidobacterium Infantis [Align] 4 mg PO DAILY@1500 04/05/19 [History] Calcium Carbonate [Calcium] 600 mg PO DAILY@1500 04/05/19 [History] Metoprolol Succinate (ER) [Toprol XL] 12.5 mg PO HS@1900 04/05/19 [History] Nitrofurantoin Monohyd/M-Cryst [Macrobid] 100 mg PO DAILY 04/05/19 [History] Peg 3350-Na Sulf,Bicarb,Cl/KCl [Golytely Lavage] 4,000 ml PO DIRECTED #1 bottle 04/05/19 [Rx] Vit A/Vit C/Vit E/Zinc/Copper [ICAPS SOFTGEL] 1 cap PO BID@0700,1900 04/05/19 [History] Follow up Appointment(s)/Referral(s): Unruly Beltran MD [Primary Care Provider] - 1-2 days Activity/Diet/Wound Care/Special Instructions: Outpatient colonoscopy scheduled for Thursday, April 11, 2019 Clear liquids only on Thursday. Nothing to eat or drink at midnight before your colonoscopy Begin your bowel prep Thursday. Surgical services will notify you with an arrival time Discharge Disposition: HOME SELF-CARE
[2019-04-05] MEDS ORDERED: hydrALAZINE HCL 50 MG TAB PO SCH (16:00)
--- NOTE | 2019-04-05 16:21 | P.GSCN ---
History of Present Illness Consult date: 04/05/19 Reason for Consult: abdominal pain Requesting physician: Jed Gavin History of present illness: CHIEF COMPLAINT: Abdominal pain HISTORY OF PRESENT ILLNESS: 83-year-old female who presented to the emergency room with a chief complaint of abdominal pain. Patient's is at the bedside and provides majority of HPI. He reports that the patient does have a history of constipation. The patient used to tell her each time she do bowel movement and he will keep track of it so that he could give her medications before she became too constipated. However, the patient has stopped doing this and will not inform her when she has a bowel movement. Maria M ent is unable to recall when her last bowel movement was. She denies abdominal pain. Denies nausea or vomiting. PAST MEDICAL HISTORY: See list. PAST SURGICAL HISTORY: See list. SOCIAL HISTORY: No illicit drug use. REVIEW OF SYSTEMS: CONSTITUTIONAL: Denies fever or chills. HEENT: Denies blurred vision, vision changes, or eye pain. Denies hemoptysis CARDIOVASCULAR: Denies chest pain or pressure. RESPIRATORY: No shortness of breath. GASTROINTESTINAL: Refer to HPI for pertinent findings HEMATOLOGIC: Denies bleeding disorders. GENITOURINARY: Denies any blood in urine. SKIN: Denies pruitis. Denies rash. PHYSICAL EXAM: VITAL SIGNS: Reviewed. GENERAL: Well-developed in no acute distress. HEENT: No sclera icterus. Extraocular movements grossly intact. Moist buccal mucosa. Head is atraumatic, normocephalic. ABDOMEN: Soft. Nondistended. Nontender. NEUROLOGIC: Alert and oriented. Cranial nerves II through XII grossly intact. LABORATORY DATA: WBC 6.8. Hemoglobin 13.3. Platelet count 308. IMAGING: CT abdomen and pelvis: Left-sided colonic diverticulosis, extensive within the sigmoid colon. Focal wall thickening along the distal sigmoid colon. Nonspecific Jose is a neoplasm in the differential. Small amount of free fluid within the right adnexa. Appendix is visualized well mildly thickened there is no abnormal fluid centers running inflammation. Moderate to large stool burden ASSESSMENT: 1. Abdominal pain 2. Constipation 3. Sigmoid diverticulosis with wall thickening visualized on computed tomography scan PLAN: Clear liquid diet. Advance as tolerated No surgical intervention recommended at this time Patient may be discharged home today from a surgical standpoint. Outpatient colonoscopy scheduled for Thursday April 11, 2019. Prescription for GoLYTELY bowel prep sent to patient's pharmacy. Discussed colonoscopy at bedside with patient and her . Instructed to have clear liquid diet only on Thursday. Nothing by mouth at midnight. Also instructed to begin bowel prep Thursday afternoon. Patients spouse and patient verbalized understanding. Nurse practitioner note has been reviewed by physician. Signing provider agrees with the documented findings, assessment, and plan of care. Past Medical History Past Medical History: Coronary Artery Disease (CAD), CVA/TIA, Deep Vein Thrombosis (DVT), GERD/Reflux, Hypertension Additional Past Medical History / Comment(s): constipation, brain aneurysm, urinary tract infections History of Any Multi-Drug Resistant Organisms: None Reported Additional Past Surgical History / Comment(s): brain, artem filter, hysterectomy Past Psychological History: No Psychological Hx Reported Smoking Status: Former smoker Past Alcohol Use History: None Reported Past Drug Use History: None Reported Medications and Allergies Home Medications Medication Instructions Recorded Confirmed Type Aspirin 81 mg PO DAILY@1500 09/17/13 04/05/19 History Cranberry Conc/C/Bacill Coag 4,200 mg PO BID 09/17/13 04/05/19 History [Cranberry Tablet] Docusate Sodium [Stool Softener] 300 mg PO DAILY@1500 09/17/13 04/05/19 History Famotidine [Pepcid] 20 mg PO HS@1900 09/17/13 04/05/19 History Melatonin 10 mg PO HS@1900 09/17/13 04/05/19 History Pravastatin Sodium [Pravachol] 20 mg PO DAILY 09/17/13 04/05/19 History Vitamin A 8,000 unit PO BID 09/17/13 04/05/19 History amLODIPine [Norvasc] 10 mg PO DAILY 09/17/13 04/05/19 History hydrALAZINE HCL [Apresoline] 50 mg PO TID 09/17/13 04/05/19 History cloNIDine 0.1 MG/24HR PATCH 1 patch TRANSDERM SA 12/12/16 04/05/19 History [Catapres-TTS] Bifidobacterium Infantis [Align] 4 mg PO DAILY@1500 04/05/19 04/05/19 History Calcium Carbonate [Calcium] 600 mg PO DAILY@1500 04/05/19 04/05/19 History Metoprolol Succinate (ER) [Toprol 12.5 mg PO HS@1900 04/05/19 04/05/19 History XL] Nitrofurantoin Monohyd/M-Cryst 100 mg PO DAILY 04/05/19 04/05/19 History [Macrobid] Peg 3350-Na Sulf,Bicarb,Cl/KCl 4,000 ml PO DIRECTED #1 bottle 04/05/19 Rx [Golytely Lavage] Vit A/Vit C/Vit E/Zinc/Copper 1 cap PO BID@0700,1900 04/05/19 04/05/19 History [ICAPS SOFTGEL] Allergies Allergy/AdvReac Type Severity Reaction Status Date / Time aloe vera Allergy Unknown Verified 04/05/19 12:43 amlodipine besylate Allergy Unknown Verified 04/05/19 12:43 [From Norvasc] cyclobenzaprine Allergy Unknown Verified 04/05/19 12:43 [Cyclobenzaprine] diclofenac Allergy Unknown Verified 04/05/19 12:43 hydrochlorothiazide Allergy Unknown Verified 04/05/19 12:43 [From Zestoretic] latex Allergy Unknown Verified 04/05/19 12:43 levofloxacin [From Levaquin] Allergy Unknown Verified 04/05/19 12:43 lisinopril Allergy Unknown Verified 04/05/19 12:43 mesalamine [From Asacol] Allergy Unknown Verified 04/05/19 12:43 sulfamethoxazole Allergy Unknown Verified 04/05/19 12:43 [From Bactrim] trimethoprim [From Bactrim] Allergy Unknown Verified 04/05/19 12:43 Surgical - Exam Vital Signs Temp Pulse Resp BP Pulse Ox 98 F 80 18 170/97 95 04/05/19 09:07 04/05/19 09:07 04/05/19 09:07 04/05/19 09:07 04/05/19 09:07 Results - Labs 04/05/19 09:43 04/05/19 09:43 Diabetes panel 04/05/19 Range/Units 09:43 Sodium 143 (137-145) mmol/L Potassium 3.8 (3.5-5.1) mmol/L Chloride 107 (98-107) mmol/L Carbon Dioxide 26 (22-30) mmol/L BUN 17 (7-17) mg/dL Creatinine 0.81 (0.52-1.04) mg/dL Glucose 88 (74-99) mg/dL Calcium 9.9 (8.4-10.2) mg/dL AST 21 (14-36) U/L ALT 20 (9-52) U/L Alkaline Phosphatase 82 (38-126) U/L Total Protein 7.4 (6.3-8.2) g/dL Albumin 4.1 (3.5-5.0) g/dL Calcium panel 04/05/19 Range/Units 09:43 Calcium 9.9 (8.4-10.2) mg/dL Albumin 4.1 (3.5-5.0) g/dL Pituitary panel 04/05/19 Range/Units 09:43 Sodium 143 (137-145) mmol/L Potassium 3.8 (3.5-5.1) mmol/L Chloride 107 (98-107) mmol/L Carbon Dioxide 26 (22-30) mmol/L BUN 17 (7-17) mg/dL Creatinine 0.81 (0.52-1.04) mg/dL Glucose 88 (74-99) mg/dL Calcium 9.9 (8.4-10.2) mg/dL Adrenal panel 04/05/19 Range/Units 09:43 Sodium 143 (137-145) mmol/L Potassium 3.8 (3.5-5.1) mmol/L Chloride 107 (98-107) mmol/L Carbon Dioxide 26 (22-30) mmol/L BUN 17 (7-17) mg/dL Creatinine 0.81 (0.52-1.04) mg/dL Glucose 88 (74-99) mg/dL Calcium 9.9 (8.4-10.2) mg/dL Total Bilirubin 0.4 (0.2-1.3) mg/dL AST 21 (14-36) U/L ALT 20 (9-52) U/L Alkaline Phosphatase 82 (38-126) U/L Total Protein 7.4 (6.3-8.2) g/dL Albumin 4.1 (3.5-5.0) g/dL
[2019-04-05] MEDS ORDERED: METOPROLOL SUCCINATE (ER) 25 MG TAB.ER.24H PO SCH (19:00)
[2019-04-05] MEDS ORDERED: MELATONIN 5 MG TABLET PO SCH (19:00)
[2019-04-05] MEDS ORDERED: FAMOTIDINE 20 MG TAB PO SCH (19:00)
[2019-04-05] MEDS ORDERED: BISACODYL 10 MG SUPP RECTAL SCH (21:00)
[2019-04-06] MEDS ORDERED: amLODIPine 10 MG TAB PO SCH (09:00)
[2019-04-06] MEDS ORDERED: PRAVASTATIN SODIUM 20 MG TAB PO SCH (09:00)
[2019-04-06] MEDS ORDERED: NITROFURANTOIN MONOHYD/M-CRYST 100 MG CAP PO SCH (09:00)
[2019-04-06] MEDS ORDERED: POLYETHYLENE GLYCOL 3350 17 GM POWD.PACK PO SCH (09:00)
[2019-04-09] MEDS ORDERED: cloNIDine 0.1 MG/24HR PATCH TRANSDERM SCH (09:00)
== END 2019-04-05 18:12 | disposition home or self-care (01) ==
LOC: EC 09:01 → 1SOBS 12:03
PROVIDERS: ADMIT Internal Medicine; ATTEND Internal Medicine
DX: K59.00 Constipation, unspecified (principal); R18.8 Other ascites; R93.3 Abnormal findings on diagnostic imaging of other parts of digestive tract; Z86.79 Personal history of other diseases of the circulatory system; Z95.828 Presence of other vascular implants and grafts; I69.198 Other sequelae of nontraumatic intracerebral hemorrhage; F01.50 Vascular dementia, unspecified severity, without behavioral disturbance, psychotic disturbance, mood disturbance, and anxiety; I10 Essential (primary) hypertension; G47.00 Insomnia, unspecified; K57.30 Diverticulosis of large intestine without perforation or abscess without bleeding; I25.10 Atherosclerotic heart disease of native coronary artery without angina pectoris; K21.9 Gastro-esophageal reflux disease without esophagitis; Z79.82 Long term (current) use of aspirin; Z79.899 Other long term (current) drug therapy; Z91.048 Other nonmedicinal substance allergy status; Z88.8 Allergy status to other drugs, medicaments and biological substances; Z91.040 Latex allergy status; Z88.1 Allergy status to other antibiotic agents; Z88.2 Allergy status to sulfonamides; Z86.718 Personal history of other venous thrombosis and embolism; Z87.440 Personal history of urinary (tract) infections; Z90.49 Acquired absence of other specified parts of digestive tract; Z90.710 Acquired absence of both cervix and uterus; Z98.890 Other specified postprocedural states; Z87.891 Personal history of nicotine dependence
CPT/HCPCS: 96361; 96374; 99285; 36415; 80053; 82150; 83605; 83690; 85025; 81003; 74177; G0378; J1170; Q9967

== ENCOUNTER 2019-04-11 09:12 | Day surgery (SDC) | payer MEDICARE, BC ==
[2019-04-06 11:54] VITALS: BMI 22.6
[~2019-04-11 09:12] MED LIST: LIDOCAINE 1% 20 ML VIAL (10MG/ML) FOR IV START INTRADERMA PRN
[2019-04-11 09:40] VITALS: TEMP 98.4
[2019-04-11] MEDS: LACTATED RINGERS 1,000 ML IV SCH ×2 (09:47→10:01)
[2019-04-11] MEDS ORDERED: PROPOFOL 10 MG/ML 20 ML VIAL IV ONE (10:03)
--- NOTE | 2019-04-11 10:17 | P.GSHP ---
History of Present Illness H&P Date: 04/11/19 Chief Complaint: GI bleed This is an 83-year-old female with history of GI bleed. Patient rents today for colonoscopy. Past Medical History Past Medical History: Coronary Artery Disease (CAD), CVA/TIA, Deep Vein Thrombosis (DVT), GERD/Reflux, Hypertension Additional Past Medical History / Comment(s): constipation, brain aneurysm, urinary tract infections History of Any Multi-Drug Resistant Organisms: None Reported Additional Past Surgical History / Comment(s): brain, artem filter, hysterectomy Smoking Status: Former smoker Medications and Allergies Home Medications Medication Instructions Recorded Confirmed Type Aspirin 81 mg PO DAILY@1500 09/17/13 04/11/19 History Cranberry Conc/C/Bacill Coag 4,200 mg PO BID 09/17/13 04/11/19 History [Cranberry Tablet] Docusate Sodium [Stool Softener] 300 mg PO DAILY@1500 09/17/13 04/11/19 History Famotidine [Pepcid] 20 mg PO HS@1900 09/17/13 04/11/19 History Melatonin 10 mg PO HS@1900 09/17/13 04/11/19 History Pravastatin Sodium [Pravachol] 20 mg PO DAILY 09/17/13 04/11/19 History Vitamin A 8,000 unit PO BID 09/17/13 04/11/19 History amLODIPine [Norvasc] 10 mg PO DAILY 09/17/13 04/11/19 History hydrALAZINE HCL [Apresoline] 50 mg PO TID 09/17/13 04/11/19 History cloNIDine 0.1 MG/24HR PATCH 1 patch TRANSDERM SA 12/12/16 04/11/19 History [Catapres-TTS] Bifidobacterium Infantis [Align] 4 mg PO DAILY@1500 04/05/19 04/11/19 History Calcium Carbonate [Calcium] 600 mg PO DAILY@1500 04/05/19 04/11/19 History Metoprolol Succinate (ER) [Toprol 12.5 mg PO HS@1900 04/05/19 04/11/19 History XL] Nitrofurantoin Monohyd/M-Cryst 100 mg PO DAILY 04/05/19 04/11/19 History [Macrobid] Vit A/Vit C/Vit E/Zinc/Copper 1 cap PO BID@0700,1900 04/05/19 04/11/19 History [ICAPS SOFTGEL] Allergies Allergy/AdvReac Type Severity Reaction Status Date / Time aloe vera Allergy Unknown Verified 04/11/19 09:52 amlodipine besylate Allergy Unknown Verified 04/11/19 09:52 [From Norvasc] cyclobenzaprine Allergy Unknown Verified 04/11/19 09:52 [Cyclobenzaprine] diclofenac Allergy Unknown Verified 04/11/19 09:52 hydrochlorothiazide Allergy Unknown Verified 04/11/19 09:52 [From Zestoretic] latex Allergy Rash/Hives Verified 04/11/19 09:52 levofloxacin [From Levaquin] Allergy Unknown Verified 04/11/19 09:52 lisinopril Allergy Unknown Verified 04/11/19 09:52 mesalamine [From Asacol] Allergy Unknown Verified 04/11/19 09:52 sulfamethoxazole Allergy Unknown Verified 04/11/19 09:52 [From Bactrim] trimethoprim [From Bactrim] Allergy Unknown Verified 04/11/19 09:52 Surgical - Exam Vital Signs Temp Pulse Resp Pulse Ox 98.4 F 109 H 20 97 04/11/19 09:39 04/11/19 09:39 04/11/19 09:39 04/11/19 09:39 - General well developed, well nourished, no distress - Eyes PERRL - ENT normal pinna - Neck no masses - Respiratory normal expansion - Cardiovascular Rhythm: regular - Abdomen Abdomen: soft, non tender Assessment and Plan Assessment: GI bleed. We'll perform colonoscopy.
--- NOTE | 2019-04-11 10:32 | P.OP ---
Date of Procedure: 04/11/19 Preoperative Diagnosis: GI bleed Postoperative Diagnosis: Severe diverticulosis Procedure(s) Performed: Colonoscopy Anesthesia: MAC Surgeon: Jovanni Macias Pathology: none sent Condition: stable Disposition: PACU Description of Procedure: The patient's placed on the endoscopy table in the lateral position. She received IV sedation. Digital rectal exam was performed which revealed external hemorrhoids. Flexible colonoscope was then placed patient anus and passed through the colon. The colonoscope could not be advanced beyond the left colon secondary to tortuous of bowel in severe diverticulosis. The bowel was poorly prepped. This point decided to withdraw the colonoscope and perform a barium. The colon scope was withdrawn there is extensive diverticular changes of the left and sigmoid colon. The rectum appeared normal. Scope was withdrawn for patient.
[2019-04-11] MEDS ORDERED: LABETALOL SYRINGE 5 MG/ML IVP ONE (11:08)
[2019-04-11 11:29] VITALS: BP 158/87; PULSE 69; RESP 16
== END 2019-04-11 12:20 | disposition home or self-care (01) ==
LOC: ORWHC2ENDO 09:12
PROVIDERS: ATTEND Surgery
DX: K57.31 Diverticulosis of large intestine without perforation or abscess with bleeding (principal); K64.4 Residual hemorrhoidal skin tags; Q43.8 Other specified congenital malformations of intestine; I25.10 Atherosclerotic heart disease of native coronary artery without angina pectoris; K21.9 Gastro-esophageal reflux disease without esophagitis; I10 Essential (primary) hypertension; K08.89 Other specified disorders of teeth and supporting structures; Z86.73 Personal history of transient ischemic attack (TIA), and cerebral infarction without residual deficits; Z86.718 Personal history of other venous thrombosis and embolism; Z87.19 Personal history of other diseases of the digestive system; Z86.79 Personal history of other diseases of the circulatory system; Z87.440 Personal history of urinary (tract) infections; Z98.890 Other specified postprocedural states; Z90.710 Acquired absence of both cervix and uterus; Z87.891 Personal history of nicotine dependence; Z79.82 Long term (current) use of aspirin; Z79.899 Other long term (current) drug therapy; Z91.048 Other nonmedicinal substance allergy status; Z88.8 Allergy status to other drugs, medicaments and biological substances; Z91.040 Latex allergy status; Z88.1 Allergy status to other antibiotic agents; Z88.2 Allergy status to sulfonamides; Z91.89 Other specified personal risk factors, not elsewhere classified
CPT/HCPCS: 45330; J2704; 45378

== ENCOUNTER 2020-10-26 20:12 | Observation (INO) | payer MEDICARE, BC ==
--- NOTE | 2020-10-26 20:43 | ED ---
General Adult HPI - General Chief complaint: Abdominal Pain Stated complaint: Stomach pain Time Seen by Provider: 10/26/20 20:31 Source: patient, family Mode of arrival: ambulatory Limitations: no limitations - History of Present Illness Initial comments: Dictation was produced using [id number] dictation software. please excuse any grammatical, word or spelling errors. Chief Complaint: 85-year-old female with past medical history of coronary artery disease, CVA, DVT, hypertension presents to the emergency department for suprapubic pain History of Present Illness: 85-year-old female she has multiple comorbidities. Patient is here in the emergency department today for lower abdominal pain. She states that it's Centro to the suprapubic area and radiates to the bilateral flanks. Complains of nausea no vomiting. She's been having some mild dysuria. States that she hasn't had a bowel movement in 2 days. Patient states that she does feel feverish. She denies any chest pain. No shortness of breath. The ROS documented in this emergency department record has been reviewed and confirmed by me. Those systems with pertinent positive or negative responses have been documented in the HPI. All other systems are other negative and/or noncontributory. PHYSICAL EXAM: General Impression: Alert and oriented x3, not in acute distress HEENT: Normocephalic atraumatic, extra-ocular movements intact, pupils equal and reactive to light bilaterally, mucous membranes moist. Cardiovascular: Heart regular rate and rhythm Chest: Able to complete full sentences, no retractions, no tachypnea Abdomen: abdomen soft, mild palpatory tenderness to the suprapubic area, non- distended, no organomegaly Musculoskeletal: Pulses present and equal in all extremities, no peripheral edema Motor: no focal deficits noted Neurological: CN II-XII grossly intact, no focal motor or sensory deficits noted Skin: Intact with no visualized rashes Psych: Normal affect and mood ED course: 85-year-old female presents to the emergency department for suprapubic pain, and nausea. Vital Signs upon arrival are within acceptable limits. EKG interpretation: Ventricular rate 64, normal sinus rhythm, UT interval 160, QRS 94, QTC 416. No UT prolongation, no QTC prolongation. Most recent EKGs from 09/17/2013. There appears to be Q waves without any ST changes which represent old infarct. Overall this EKG is nonspecific. Repeat EKG shows no dynamic changes. EKG interpretation: Ventricular rate 62, normal sinus rhythm,. Interval and 66, QRS 90, QTC 422. No UT prolongation, no QTC prolongation, no ST or T-wave changes noted. Laboratory evaluation obtained. CBC, metabolic panel is within acceptable limits. Abdominal labs are negative. Troponin is negative. Acute abdominal series shows an acute abdomen. In emergency department patient had large bowel movement with slight improvement of symptoms. Urinalysis shows urinary tract infection.Disposition options were discussed with patient. She would prefer to be admitted to the hospital because she feels weak and does not feel capable of handling her UTI an outpatient basis. Patient given 1 g of ceftriaxone. She is admitted to the hospital. Case discussed with Dr. Liao. - Related Data Home Medications Medication Instructions Recorded Confirmed Aspirin 81 mg PO DAILY@1500 09/17/13 04/11/19 Cranberry Conc/C/Bacill Coag 4,200 mg PO BID 09/17/13 04/11/19 [Cranberry Tablet] Docusate Sodium [Stool Softener] 300 mg PO DAILY@1500 09/17/13 04/11/19 Famotidine [Pepcid] 20 mg PO HS@1900 09/17/13 04/11/19 Melatonin 10 mg PO HS@1900 09/17/13 04/11/19 Pravastatin Sodium [Pravachol] 20 mg PO DAILY 09/17/13 04/11/19 Vitamin A 8,000 unit PO BID 09/17/13 04/11/19 amLODIPine [Norvasc] 10 mg PO DAILY 09/17/13 04/11/19 hydrALAZINE HCL [Apresoline] 50 mg PO TID 09/17/13 04/11/19 cloNIDine 0.1 MG/24HR PATCH 1 patch TRANSDERM SA 12/12/16 04/11/19 [Catapres-TTS] Bifidobacterium Infantis [Align] 4 mg PO DAILY@1500 04/05/19 04/11/19 Calcium Carbonate [Calcium] 600 mg PO DAILY@1500 04/05/19 04/11/19 Metoprolol Succinate (ER) [Toprol 12.5 mg PO HS@1900 04/05/19 04/11/19 XL] Nitrofurantoin Monohyd/M-Cryst 100 mg PO DAILY 04/05/19 04/11/19 [Macrobid] Vit A/Vit C/Vit E/Zinc/Copper 1 cap PO BID@0700,1900 04/05/19 04/11/19 [ICAPS SOFTGEL] Allergies Allergy/AdvReac Type Severity Reaction Status Date / Time aloe vera Allergy Unknown Verified 10/26/20 20:28 amlodipine besylate Allergy Unknown Verified 10/26/20 20:28 [From Norvasc] cyclobenzaprine Allergy Unknown Verified 10/26/20 20:28 [Cyclobenzaprine] diclofenac Allergy Unknown Verified 10/26/20 20:28 hydrochlorothiazide Allergy Unknown Verified 10/26/20 20:28 [From Zestoretic] latex Allergy Rash/Hives Verified 10/26/20 20:28 levofloxacin [From Levaquin] Allergy Unknown Verified 10/26/20 20:28 lisinopril Allergy Unknown Verified 10/26/20 20:28 mesalamine [From Asacol] Allergy Unknown Verified 10/26/20 20:28 sulfamethoxazole Allergy Unknown Verified 10/26/20 20:28 [From Bactrim] trimethoprim [From Bactrim] Allergy Unknown Verified 10/26/20 20:28 Review of Systems ROS Statement: Those systems with pertinent positive or pertinent negative responses have been documented in the HPI. ROS Other: All systems not noted in ROS Statement are negative. Past Medical History Past Medical History: Coronary Artery Disease (CAD), CVA/TIA, Deep Vein Thrombosis (DVT), GERD/Reflux, Hypertension Additional Past Medical History / Comment(s): constipation, brain aneurysm, urinary tract infections History of Any Multi-Drug Resistant Organisms: None Reported Additional Past Surgical History / Comment(s): brain, artem filter, hysterectomy Past Psychological History: No Psychological Hx Reported Smoking Status: Never smoker Past Alcohol Use History: None Reported Past Drug Use History: None Reported General Exam Limitations: no limitations Course Vital Signs 10/26/20 20:25 Temperature 97.4 F L Pulse Rate 69 Respiratory 18 Rate Blood Pressure 140/80 O2 Sat by Pulse 96 Oximetry Medical Decision Making - Lab Data Result diagrams: 10/26/20 20:59 10/26/20 20:59 Lab Results 10/26/20 10/26/20 10/26/20 Range/Units 20:59 20:59 20:59 WBC 6.0 (3.8-10.6) k/uL RBC 4.29 (3.80-5.40) m/uL Hgb 12.5 (11.4-16.0) gm/dL Hct 37.3 (34.0-46.0) % MCV 86.9 (80.0-100.0) fL MCH 29.0 (25.0-35.0) pg MCHC 33.4 (31.0-37.0) g/dL RDW 13.7 (11.5-15.5) % Plt Count 276 (150-450) k/uL MPV 7.8 Neutrophils % 62 % Lymphocytes % 18 % Monocytes % 11 % Eosinophils % 5 % Basophils % 1 % Neutrophils # 3.7 (1.3-7.7) k/uL Lymphocytes # 1.1 (1.0-4.8) k/uL Monocytes # 0.6 (0-1.0) k/uL Eosinophils # 0.3 (0-0.7) k/uL Basophils # 0.1 (0-0.2) k/uL Sodium 138 (137-145) mmol/L Potassium 4.4 (3.5-5.1) mmol/L Chloride 105 (98-107) mmol/L Carbon Dioxide 25 (22-30) mmol/L Anion Gap 8 mmol/L BUN 32 H (7-17) mg/dL Creatinine 0.83 (0.52-1.04) mg/dL Est GFR (CKD-EPI)AfAm 76 (>60 ml/min/1.73 sqM) Est GFR (CKD-EPI)NonAf 66 (>60 ml/min/1.73 sqM) Glucose 91 (74-99) mg/dL Calcium 10.6 H (8.4-10.2) mg/dL Total Bilirubin <0.1 L (0.2-1.3) mg/dL AST 18 (14-36) U/L ALT 10 (4-34) U/L Alkaline Phosphatase 153 H (38-126) U/L Troponin I <0.012 (0.000-0.034) ng/mL Total Protein 7.0 (6.3-8.2) g/dL Albumin 4.0 (3.5-5.0) g/dL Lipase 257 (23-300) U/L Urine Color Urine Appearance (Clear) Urine pH (5.0-8.0) Ur Specific [place] (1.001-1.035) Urine Protein (Negative) Urine Glucose (UA) (Negative) Urine Ketones (Negative) Urine Blood (Negative) Urine Nitrite (Negative) Urine Bilirubin (Negative) Urine Urobilinogen (<2.0) mg/dL Ur Leukocyte Esterase (Negative) Urine RBC (0-5) /hpf Urine WBC (0-5) /hpf Urine WBC Clumps (None) /hpf Ur Squamous Epith Cells (0-4) /hpf Amorphous Sediment (None) /hpf Urine Bacteria (None) /hpf Urine Mucus (None) /hpf 10/26/20 Range/Units 20:59 WBC (3.8-10.6) k/uL RBC (3.80-5.40) m/uL Hgb (11.4-16.0) gm/dL Hct (34.0-46.0) % MCV (80.0-100.0) fL MCH (25.0-35.0) pg MCHC (31.0-37.0) g/dL RDW (11.5-15.5) % Plt Count (150-450) k/uL MPV Neutrophils % % Lymphocytes % % Monocytes % % Eosinophils % % Basophils % % Neutrophils # (1.3-7.7) k/uL Lymphocytes # (1.0-4.8) k/uL Monocytes # (0-1.0) k/uL Eosinophils # (0-0.7) k/uL Basophils # (0-0.2) k/uL Sodium (137-145) mmol/L Potassium (3.5-5.1) mmol/L Chloride (98-107) mmol/L Carbon Dioxide (22-30) mmol/L Anion Gap mmol/L BUN (7-17) mg/dL Creatinine (0.52-1.04) mg/dL Est GFR (CKD-EPI)AfAm (>60 ml/min/1.73 sqM) Est GFR (CKD-EPI)NonAf (>60 ml/min/1.73 sqM) Glucose (74-99) mg/dL Calcium (8.4-10.2) mg/dL Total Bilirubin (0.2-1.3) mg/dL AST (14-36) U/L ALT (4-34) U/L Alkaline Phosphatase (38-126) U/L Troponin I (0.000-0.034) ng/mL Total Protein (6.3-8.2) g/dL Albumin (3.5-5.0) g/dL Lipase (23-300) U/L Urine Color Yellow Urine Appearance Turbid H (Clear) Urine pH 5.5 (5.0-8.0) Ur Specific [place] 1.012 (1.001-1.035) Urine Protein Trace H (Negative) Urine Glucose (UA) Negative (Negative) Urine Ketones Negative (Negative) Urine Blood Negative (Negative) Urine Nitrite Negative (Negative) Urine Bilirubin Negative (Negative) Urine Urobilinogen <2.0 (<2.0) mg/dL Ur Leukocyte Esterase Large H (Negative) Urine RBC 8 H (0-5) /hpf Urine WBC >182 H (0-5) /hpf Urine WBC Clumps Many H (None) /hpf Ur Squamous Epith Cells 1 (0-4) /hpf Amorphous Sediment Rare H (None) /hpf Urine Bacteria Many H (None) /hpf Urine Mucus Rare H (None) /hpf Disposition Clinical Impression: UTI (urinary tract infection) Disposition: ADMITTED IP TO THIS [facility] Condition: Fair Referrals: Unruly Beltran MD [Primary Care Provider] - 1-2 days
[2020-10-26 21:09] LABS: Basophils # (A) 0.1 k/uL (0-0.2); Basophils % (A) 1 %; Eosinophils # (A) 0.3 k/uL (0-0.7); Eosinophils % (A) 5 %; HCT 37.3 % (34.0-46.0); HGB 12.5 gm/dL (11.4-16.0); Lymphocytes # (A) 1.1 k/uL (1.0-4.8); Lymphocytes % (A) 18 %; MCHC 33.4 g/dL (31.0-37.0); MCV 86.9 fL (80.0-100.0); Mean Platelet Volume 7.8; Monocytes # (A) 0.6 k/uL (0-1.0); Monocytes % (A) 11 %; Neutrophils # (A) 3.7 k/uL (1.3-7.7); Neutrophils % (A) 62 %; Platelet Count 276 k/uL (150-450); RBC 4.29 m/uL (3.80-5.40); RDW 13.7 % (11.5-15.5)
--- NOTE | 2020-10-26 21:15 | XR ---
EXAMINATION TYPE: XR abdomen acute w cxr DATE OF EXAM: 10/26/2020 COMPARISON: 09/19/2013 HISTORY: Nausea and epigastric pain. TECHNIQUE: 4 views FINDINGS: Heart and mediastinum are normal. Lungs are clear of infiltrate. There is no heart failure. There is ventriculoperitoneal shunt catheter. There are no hilar masses. There is no sign of intestinal obstruction or pneumoperitoneum. Fecal pattern is normal. There is inf erior vena cava filter. There is shunt catheter that is extending into the right lower quadrant. Ther e are no pathologic calcifications over the kidneys. There is no evidence of abdominal mass. IMPRESSION: Nonacute abdomen. No active cardiopulmonary disease. Abdomen not significantly different than old exam. Chest appears unchanged compared to 02/18/2019.
[2020-10-26 21:17] LABS: ALT 10 U/L (4-34); AST 18 U/L (14-36); African American GFR (CKD) 76 (>60 ml/min/1.73 sqM); Alkaline Phosphatase 153 U/L (38-126); Anion Gap 8 mmol/L; Blood Urea Nitrogen 32 mg/dL (7-17); Calcium 10.6 mg/dL (8.4-10.2); Carbon Dioxide 25 mmol/L (22-30); Chloride 105 mmol/L (98-107); Glucose 91 mg/dL (74-99); Lipase 257 U/L (23-300); Non-African American GFR(CKD) 66 (>60 ml/min/1.73 sqM); Potassium 4.4 mmol/L (3.5-5.1); Sodium 138 mmol/L (137-145); Total Bilirubin <0.1 mg/dL (0.2-1.3)
[2020-10-26] MEDS ORDERED: SODIUM CHLORIDE 0.9% 500 ML 500 ML IV STA (21:20)
[2020-10-26] MEDS ORDERED: polyethylene glycoL 3350 17 GM POWD.PACK PO STA (21:22)
[2020-10-26 22:31] LABS: Amorphous Sediment,Urine Rare /hpf; Appearance,Urine Turbid (Clear); Bacteria,Urine Many /hpf; Bilirubin,Urine Negative (Negative); Blood,Urine Negative (Negative); Color,Urine Yellow; Glucose,Urine (UA) Negative (Negative); Ketones,Urine Negative (Negative); Leukocyte Esterase,Urine Large (Negative); Mucus,Urine Rare /hpf; Nitrite,Urine Negative (Negative); PH, Urine 5.5 (5.0-8.0); Protein,Urine Trace (Negative); RBC,Urine 8 /hpf (0-5); Specific Gravity,Urine 1.012 (1.001-1.035); Squamous Epithelial Cell,Urine 1 /hpf (0-4); Urobilinogen,Urine <2.0 mg/dL (<2.0); WBC,Urine >182 /hpf (0-5)
[2020-10-26] MEDS ORDERED: cefTRIAXone IN SWFI 1,000 MG/10 ML SYRINGE IVP STA (22:40)
[2020-10-26] MEDS ORDERED: NALOXONE 0.4 MG/ML 1 ML VIAL IV PRN (22:41)
[2020-10-26] MEDS: SODIUM CHLORIDE 0.9% 1,000 ML IV SCH (23:14)
[2020-10-27] MEDS ORDERED: cloNIDine 0.1 MG/24HR PATCH TRANSDERM SCH (17:00)
--- NOTE | 2020-10-27 17:00 | P.HPIM ---
History of Present Illness H&P Date: 10/27/20 This is an 85-year-old lady patient of Dr. Beltran. Has underlying history of CAD with recurrent dementia, CAD, CVA, cerebral aneurysm status post coiling the past, with prior DVT requiring Artem filter, hypertension, who was seen in the emergency room secondary to increasing confusion, and severe dysuria, with today presentation. She has diminished appetite, no diarrhea, no hematuria, patient cannot identify the who is assisting at bedside, and they have been for over 35 years. In the emergency room, imaging include an acute abdominal series, for which no acute abdomen noted, no active cardiopulmonary disease, there is ventricle. Cardiac shunt noted in the x-ray, no hilar masses. Lungs are clear of infiltrates, no heart failure labs shows pyuria, with elevated alkaline phosphatase, elevated calcium 10.6, BUN 32, creatinine normal at 0.83. No leukocytosis, 6.0, hemoglobin 12.5, lactic acid not done. Coronavirus negative patient admitted for acute cystitis with early pyelonephritis, IV antibiotics, cultures have been sent, Review of Systems ROS unobtainable: due to mental status Constitutional: Reports fatigue Cardiovascular: Reports as per HPI, Reports lightheadedness, Denies decreased exercise tolerance, Denies edema, Denies irregular heart beat, Denies orthopnea, Denies rapid heart beat, Denies syncope Respiratory: Reports as per HPI, Denies congestion, Denies cough, Denies pain on inspiration Gastrointestinal: Reports as per HPI, Reports abdominal pain, Reports loss of appetite, Reports nausea Genitourinary: Reports as per HPI, Reports difficulty voiding, Reports flank pain, Reports pelvic pain, Denies hematuria Menstruation: Reports as per HPI Musculoskeletal: Reports as per HPI Integumentary: Reports as per HPI Neurological: Reports as per HPI, Denies balance difficulties Psychiatric: Reports as per HPI, Reports insomnia (Sleepwalking), Reports irritability, Reports memory loss (Unable to identify the ) Endocrine: Reports as per HPI Past Medical History Past Medical History: Coronary Artery Disease (CAD), CVA/TIA, Deep Vein Thrombosis (DVT), GERD/Reflux, Hypertension Additional Past Medical History / Comment(s): constipation, brain aneurysm, urinary tract infections History of Any Multi-Drug Resistant Organisms: None Reported Additional Past Surgical History / Comment(s): brain, artem filter, hysterectomy Past Anesthesia/Blood Transfusion Reactions: No Reported Reaction Past Psychological History: No Psychological Hx Reported Smoking Status: Never smoker Past Alcohol Use History: None Reported Past Drug Use History: None Reported Medications and Allergies Home Medications Medication Instructions Recorded Confirmed Type Aspirin 81 mg PO DAILY@1500 09/17/13 10/26/20 History Cranberry Conc/C/Bacill Coag 1 tab PO BID@0700,1900 09/17/13 10/26/20 History [Cranberry Tablet] Docusate Sodium [Stool Softener] 300 mg PO DAILY@1500 09/17/13 10/26/20 History Famotidine [Pepcid] 20 mg PO HS@1900 09/17/13 10/26/20 History Melatonin 10 mg PO HS@1900 09/17/13 10/26/20 History Pravastatin Sodium [Pravachol] 20 mg PO DAILY@0700 09/17/13 10/26/20 History Vitamin A 8,000 unit PO BID@0700,1900 09/17/13 10/26/20 History amLODIPine [Norvasc] 10 mg PO DAILY@0700 09/17/13 10/26/20 History hydrALAZINE HCL [Apresoline] 50 mg PO TID@0700,1500,1900 09/17/13 10/26/20 History cloNIDine 0.1 MG/24HR PATCH 1 patch TRANSDERM SA 12/12/16 10/26/20 History [Catapres-TTS] Bifidobacterium Infantis [Align] 4 mg PO DAILY@1500 04/05/19 10/26/20 History Calcium Carbonate [Calcium] 600 mg PO DAILY@1500 04/05/19 10/26/20 History Metoprolol Succinate (ER) [Toprol 12.5 mg PO HS@1900 04/05/19 10/26/20 History XL] Vit A/Vit C/Vit E/Zinc/Copper 1 cap PO BID@0700,1900 04/05/19 10/26/20 History [ICAPS SOFTGEL] Cholecalciferol [Vitamin D3 (25 50 mcg PO DAILY@189910/26/20 10/26/20 History Mcg = 1000 Iu)] Donepezil [Aricept] 5 mg PO HS@1900 10/26/20 10/26/20 History Allergies Allergy/AdvReac Type Severity Reaction Status Date / Time aloe vera Allergy Unknown Verified 10/26/20 22:53 amlodipine besylate Allergy Unknown Verified 10/26/20 22:53 [From Norvasc] cyclobenzaprine Allergy Unknown Verified 10/26/20 22:53 [Cyclobenzaprine] diclofenac Allergy Unknown Verified 10/26/20 22:53 hydrochlorothiazide Allergy Unknown Verified 10/26/20 22:53 [From Zestoretic] latex Allergy Rash/Hives Verified 10/26/20 22:53 levofloxacin [From Levaquin] Allergy Unknown Verified 10/26/20 22:53 lisinopril Allergy Unknown Verified 10/26/20 22:53 mesalamine [From Asacol] Allergy Unknown Verified 10/26/20 22:53 sulfamethoxazole Allergy Unknown Verified 10/26/20 22:53 [From Bactrim] trimethoprim [From Bactrim] Allergy Unknown Verified 10/26/20 22:53 Physical Exam Vitals: Vital Signs Temp Pulse Pulse Resp BP BP Pulse Ox 10/27/20 02:14 70 18 10/27/20 02:00 98.7 F 64 16 147/72 97 10/26/20 23:55 98.4 F 70 18 177/52 99 10/26/20 23:16 98.1 F 57 L 16 171/91 96 10/26/20 20:25 97.4 F L 69 18 140/80 96 Intake and Output 10/26/20 10/27/20 10/27/20 22:59 06:59 14:59 Other: # Voids 3 # Bowel Movements 3 Weight 54.431 kg 54.431 kg - Constitutional General appearance: cooperative, no acute distress - EENT Eyes: EOMI Results CBC & Chem 7: 10/26/20 20:59 10/26/20 20:59 Labs: Abnormal Lab Results - Last 24 Hours (Table) 10/26/20 10/26/20 Range/Units 20:59 20:59 BUN 32 H (7-17) mg/dL Calcium 10.6 H (8.4-10.2) mg/dL Total Bilirubin <0.1 L (0.2-1.3) mg/dL Alkaline Phosphatase 153 H (38-126) U/L Urine Appearance Turbid H (Clear) Urine Protein Trace H (Negative) Ur Leukocyte Esterase Large H (Negative) Urine RBC 8 H (0-5) /hpf Urine WBC >182 H (0-5) /hpf Urine WBC Clumps Many H (None) /hpf Amorphous Sediment Rare H (None) /hpf Urine Bacteria Many H (None) /hpf Urine Mucus Rare H (None) /hpf Microbiology - Last 24 Hours (Table) 10/26/20 20:59 Urine Culture - Preliminary Urine,Voided Laboratory Results WBC 6.0 k/uL (3.8-10.6) 10/26/20 20:59 RBC 4.29 m/uL (3.80-5.40) 10/26/20 20:59 Hgb 12.5 gm/dL (11.4-16.0) 10/26/20 20:59 Hct 37.3 % (34.0-46.0) 10/26/20 20:59 MCV 86.9 fL (80.0-100.0) 10/26/20 20:59 MCH 29.0 pg (25.0-35.0) 10/26/20 20:59 MCHC 33.4 g/dL (31.0-37.0) 10/26/20 20:59 RDW 13.7 % (11.5-15.5) 10/26/20 20:59 Plt Count 276 k/uL (150-450) 10/26/20 20:59 MPV 7.8 10/26/20 20:59 Neutrophils % 62 % 10/26/20 20:59 Lymphocytes % 18 % 10/26/20 20:59 Monocytes % 11 % 10/26/20 20:59 Eosinophils % 5 % 10/26/20 20:59 Basophils % 1 % 10/26/20 20:59 Neutrophils # 3.7 k/uL (1.3-7.7) 10/26/20 20:59 Lymphocytes # 1.1 k/uL (1.0-4.8) 10/26/20 20:59 Monocytes # 0.6 k/uL (0-1.0) 10/26/20 20:59 Eosinophils # 0.3 k/uL (0-0.7) 10/26/20 20:59 Basophils # 0.1 k/uL (0-0.2) 10/26/20 20:59 Sodium 138 mmol/L (137-145) 10/26/20 20:59 Potassium 4.4 mmol/L (3.5-5.1) 10/26/20 20:59 Chloride 105 mmol/L (98-107) 10/26/20 20:59 Carbon Dioxide 25 mmol/L (22-30) 10/26/20 20:59 Anion Gap 8 mmol/L 10/26/20 20:59 BUN 32 mg/dL (7-17) H 10/26/20 20:59 Creatinine 0.83 mg/dL (0.52-1.04) 10/26/20 20:59 Est GFR (CKD-EPI)AfAm 76 (>60 ml/min/1.73 sqM) 10/26/20 20:59 Est GFR (CKD-EPI)NonAf 66 (>60 ml/min/1.73 sqM) 10/26/20 20:59 Glucose 91 mg/dL (74-99) 10/26/20 20:59 Calcium 10.6 mg/dL (8.4-10.2) H 10/26/20 20:59 Total Bilirubin <0.1 mg/dL (0.2-1.3) L 10/26/20 20:59 AST 18 U/L (14-36) 10/26/20 20:59 ALT 10 U/L (4-34) 10/26/20 20:59 Alkaline Phosphatase 153 U/L (38-126) H 10/26/20 20:59 Troponin I <0.012 ng/mL (0.000-0.034) 10/26/20 20:59 Total Protein 7.0 g/dL (6.3-8.2) 10/26/20 20:59 Albumin 4.0 g/dL (3.5-5.0) 10/26/20 20:59 Lipase 257 U/L (23-300) 10/26/20 20:59 Urine Color Yellow 10/26/20 20:59 Urine Appearance Turbid (Clear) H 10/26/20 20:59 Urine pH 5.5 (5.0-8.0) 10/26/20 20:59 Ur Specific [place] 1.012 (1.001-1.035) 10/26/20 20:59 Urine Protein Trace (Negative) H 10/26/20 20:59 Urine Glucose (UA) Negative (Negative) 10/26/20 20:59 Urine Ketones Negative (Negative) 10/26/20 20:59 Urine Blood Negative (Negative) 10/26/20 20:59 Urine Nitrite Negative (Negative) 10/26/20 20:59 Urine Bilirubin Negative (Negative) 10/26/20 20:59 Urine Urobilinogen <2.0 mg/dL (<2.0) 10/26/20 20:59 Ur Leukocyte Esterase Large (Negative) H 10/26/20 20:59 Urine RBC 8 /hpf (0-5) H 10/26/20 20:59 Urine WBC >182 /hpf (0-5) H 10/26/20 20:59 Urine WBC Clumps Many /hpf (None) H 10/26/20 20:59 Ur Squamous Epith Cells 1 /hpf (0-4) 10/26/20 20:59 Amorphous Sediment Rare /hpf (None) H 10/26/20 20:59 Urine Bacteria Many /hpf (None) H 10/26/20 20:59 Urine Mucus Rare /hpf (None) H 10/26/20 20:59 Coronavirus (PCR) Not Detected (Not Detectd) 10/26/20 22:55 Thrombosis Risk Factor Assmnt - DVT/VTE Prophylaxis DVT/VTE Prophylaxis: Pharmacologic Prophylaxis ordered - Choose All That Apply Other Risk Factors: Yes Each Risk Factor Represents 3 Points: Age 75 years or older, History of DVT/PE Other congenital or acquired thrombophilia - If yes, enter type in comment: No Thrombosis Risk Factor Assessment Total Risk Factor Score: 6 Thrombosis Risk Factor Assessment Level: High Risk Assessment and Plan Plan: 1. Acute early pyelonephritis with significant pyuria and nausea, patient is on IV Rocephin, and is accompanied by dysuria without hematuria, last urinary tract infection was 2015, with drug resistance to antibiotic that were noted. Monitor for GIintolerance to other pills, continue IV antibiotic at this time, might need renal ultrasound 2. Significant memory loss, underlying history of cerebral aneurysm with vascular dementia, patient needs 24-hour supervision, on Aricept 5 mg daily, 3. Hypertension, on amlodipine 10 mg daily, and clonidine patch, which will be resumed, no change in Toprol ER 2.5 mg at bedtime 4. Hyperlipidemia on Pravachol 20 mg daily 5. Osteoporosis without any current fracture fall risk, osteoporosis fracture risk is high. 6. DVT prophylaxis with subcu heparin, and early ambulation 7. 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
[2020-10-27] MEDS ORDERED: [UNRECOGNIZED DRUG - OTHER] PO SCH (19:00)
[2020-10-27] MEDS: METOPROLOL SUCCINATE (ER) 25 MG TAB.ER.24H PO SCH (21:35)
[2020-10-27] MEDS: FAMOTIDINE 20 MG TAB PO SCH (21:35)
[2020-10-27] MEDS: hydrALAZINE HCL 50 MG TAB PO SCH (21:35)
[2020-10-27] MEDS: MELATONIN 5 MG TABLET PO SCH (21:35)
[2020-10-27] MEDS: DONEPEZIL 5 MG TAB PO SCH (21:35)
[2020-10-28] MEDS: SODIUM CHLORIDE 0.9% 1,000 ML IV SCH (04:24)
[2020-10-28] MEDS: PRAVASTATIN SODIUM 20 MG TAB PO SCH (07:08)
[2020-10-28] MEDS: hydrALAZINE HCL 50 MG TAB PO SCH ×3 (07:08→19:20)
[2020-10-28] MEDS: amLODIPine 10 MG TAB PO SCH (07:08)
[2020-10-28] MEDS ORDERED: DOCUSATE 100 MG CAP PO SCH (15:00)
[2020-10-28] MEDS ORDERED: ASPIRIN 81 MG PO SCH (15:00)
--- NOTE | 2020-10-28 17:19 | P.PN ---
Subjective Progress Note Date: 10/28/20 This is an 85-year-old lady patient of Dr. Beltran. Has underlying history of CAD with recurrent dementia, CAD, CVA, cerebral aneurysm status post coiling the past, with prior DVT requiring Roosevelt filter, hypertension, who was seen in the emergency room secondary to increasing confusion, and severe dysuria, with today presentation. She has diminished appetite, no diarrhea, no hematuria, patient cannot identify the who is assisting at bedside, and they have been for over 35 years. In the emergency room, imaging include an acute abdominal series, for which no acute abdomen noted, no active cardiopulmonary disease, there is ventricle. Cardiac shunt noted in the x-ray, no hilar masses. Lungs are clear of infiltrates, no heart failure labs shows pyuria, with elevated alkaline phosphatase, elevated calcium 10.6, BUN 32, creatinine normal at 0.83. No leukocytosis, 6.0, hemoglobin 12.5, lactic acid not done. Coronavirus negative patient admitted for acute cystitis with early pyelonephritis, IV antibiotics, cultures have been sent, 10/28: Patient's mood is much better today, she is able to eat, less confrontational with the , IV Rocephin infusing patient has pending urine cultures, currently has dysuria as well as complaining of right pelvic pain, appetite is still diminished, continued on IV hydration. No diarrhea, no rectal bleeding, no aspirated events. No falls, is at bedside, updated. She has multiple ALLERGIES for which the backs will be difficult for treatment, however if cultures are sensitive to cephalosporins, this would be the better choice. Hopefully cultures will be back tomorrow, anticipate discharge at that time. T-max 97.8, blood pressure 1:30 to 170 systolic, pulse ox 94% on room air Review of Systems ROS unobtainable: due to mental status Constitutional: Reports fatigue Cardiovascular: Reports as per HPI, Reports lightheadedness, Denies decreased exercise tolerance, Denies edema, Denies irregular heart beat, Denies orthopnea, Denies rapid heart beat, Denies syncope Respiratory: Reports as per HPI, Denies congestion, Denies cough, Denies pain on inspiration Gastrointestinal: Reports as per HPI, Reports abdominal pain, Reports loss of appetite, Reports nausea Genitourinary: Reports as per HPI, Reports difficulty voiding, Reports flank p ain, Reports pelvic pain, Denies hematuria Menstruation: Reports as per HPI Musculoskeletal: Reports as per HPI Integumentary: Reports as per HPI Neurological: Reports as per HPI, Denies balance difficulties Psychiatric: Reports as per HPI, Reports insomnia (Sleepwalking), Reports irritability, Reports memory loss (Unable to identify the ) Endocrine: Reports as per HPI Objective - Vital Signs Vital signs: Vital Signs Temp 97.8 F 10/28/20 07:04 Pulse 56 L 10/28/20 07:04 Resp 16 10/28/20 07:04 BP 170/82 10/28/20 07:04 Pulse Ox 92 L 10/28/20 07:04 Intake & Output 10/27/20 10/28/20 10/28/20 18:59 06:59 18:59 Other: Voiding Method Toilet Toilet Toilet Diaper Diaper Diaper # Voids 3 3 # Bowel Movements 1 - Constitutional General appearance: Present: cooperative, no acute distress - EENT Eyes: Present: EOMI, PERRLA, normal appearance ENT: Present: NA/AT, normal oropharynx - Respiratory Respiratory: bilateral: CTA, negative: diminished, dullness - Cardiovascular Rhythm: regular Heart sounds: normal: S1, S2 - Gastrointestinal General gastrointestinal: Present: normal bowel sounds, soft - Integumentary Integumentary: Present: normal - Neurologic Neurologic: Present: CNII-XII intact - Musculoskeletal Musculoskeletal: Present: gait normal, generalized weakness, strength equal bilaterally - Labs CBC & Chem 7: 10/26/20 20:59 10/26/20 20:59 Assessment and Plan Plan: 1. Acute early pyelonephritis with significant pyuria and nausea, patient is on IV Rocephin, and is accompanied by dysuria without hematuria, last urinary tract infection was 2015, with drug resistance to antibiotic that were noted. Monitor for GIintolerance to other pills, continue IV antibiotic at this time, might need renal ultrasound 2. Significant memory loss, underlying history of cerebral aneurysm with vascular dementia, patient needs 24-hour supervision, on Aricept 5 mg daily, 3. Hypertension, on amlodipine 10 mg daily, and clonidine patch, which will be resumed, no change in Toprol ER 2.5 mg at bedtime 4. Hyperlipidemia on Pravachol 20 mg daily 5. Osteoporosis without any current fracture fall risk, osteoporosis fracture risk is high. 6. DVT prophylaxis with subcu heparin, and early ambulation 7. 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
--- NOTE | 2020-10-28 17:21 | P.PN ---
Subjective Progress Note Date: 10/28/20 This is an 85-year-old lady patient of Dr. Beltran. Has underlying history of CAD with recurrent dementia, CAD, CVA, cerebral aneurysm status post coiling the past, with prior DVT requiring Roosevelt filter, hypertension, who was seen in the emergency room secondary to increasing confusion, and severe dysuria, with today presentation. She has diminished appetite, no diarrhea, no hematuria, patient cannot identify the who is assisting at bedside, and they have been for over 35 years. In the emergency room, imaging include an acute abdominal series, for which no acute abdomen noted, no active cardiopulmonary disease, there is ventricle. Cardiac shunt noted in the x-ray, no hilar masses. Lungs are clear of infiltrates, no heart failure labs shows pyuria, with elevated alkaline phosphatase, elevated calcium 10.6, BUN 32, creatinine normal at 0.83. No leukocytosis, 6.0, hemoglobin 12.5, lactic acid not done. Coronavirus negative patient admitted for acute cystitis with early pyelonephritis, IV antibiotics, cultures have been sent, 10/28: Patient's mood is much better today, she is able to eat, less confrontational with the , IV Rocephin infusing patient has pending urine cultures, currently has dysuria as well as complaining of right pelvic pain, appetite is still diminished, continued on IV hydration. No diarrhea, no rectal bleeding, no aspirated events. No falls, is at bedside, updated. She has multiple ALLERGIES for which the backs will be difficult for treatment, however if cultures are sensitive to cephalosporins, this would be the better choice. Hopefully cultures will be back tomorrow, anticipate discharge at that time. T-max 97.8, blood pressure 1:30 to 170 systolic, pulse ox 94% on room air Review of Systems ROS unobtainable: due to mental status Constitutional: Reports fatigue Cardiovascular: Reports as per HPI, Reports lightheadedness, Denies decreased exercise tolerance, Denies edema, Denies irregular heart beat, Denies orthopnea, Denies rapid heart beat, Denies syncope Respiratory: Reports as per HPI, Denies congestion, Denies cough, Denies pain on inspiration Gastrointestinal: Reports as per HPI, Reports abdominal pain, Reports loss of appetite, Reports nausea Genitourinary: Reports as per HPI, Reports difficulty voiding, Reports flank pain, Reports pelvic pain, Denies hematuria Menstruation: Reports as per HPI Musculoskeletal: Reports as per HPI Integumentary: Reports as per HPI Neurological: Reports as per HPI, Denies balance difficulties Psychiatric: Reports as per HPI, Reports insomnia (Sleepwalking), Reports irritability, Reports memory loss (Unable to identify the ) Endocrine: Reports as per HPI Objective - Vital Signs Vital signs: Vital Signs Temp 97.8 F 10/28/20 15:00 Pulse 65 10/28/20 15:00 Resp 18 10/28/20 15:00 BP 132/73 10/28/20 15:00 Pulse Ox 94 L 10/28/20 15:00 Intake & Output 10/27/20 10/28/20 10/28/20 18:59 06:59 18:59 Other: Voiding Method Toilet Toilet Toilet Diaper Diaper Diaper # Voids 3 3 2 # Bowel Movements 1 - Constitutional General appearance: Present: cooperative, no acute distress - EENT Eyes: Present: EOMI, PERRLA, dentition normal, normal appearance ENT: Present: NA/AT, normal oropharynx - Neck Neck: Present: normal ROM - Respiratory Respiratory: bilateral: rhonchi, wheezing, negative: CTA, diminished, dullness, rales, prolonged inspiration, other - Cardiovascular Rhythm: regular Heart sounds: normal: S1, S2 Abnormal Heart Sounds: Absent: systolic murmur, diastolic murmur, rub, S3 Gallop, S4 Gallop, click, other - Gastrointestinal General gastrointestinal: Present: normal bowel sounds, soft - Musculoskeletal Musculoskeletal: Present: gait normal - Psychiatric Psychiatric: Present: A&O x's 3 - Labs CBC & Chem 7: 10/26/20 20:59 10/26/20 20:59 Labs: Microbiology - Last 24 Hours (Table) 10/26/20 20:59 Urine Culture - Preliminary Urine,Voided Gram Neg Bacilli Aerococcus urinae Assessment and Plan Plan: 1. Acute early pyelonephritis with significant pyuria and nausea, patient is on IV Rocephin, and is accompanied by dysuria without hematuria, last urinary tract infection was 2015, with drug resistance to antibiotic that were noted. Monitor for GIintolerance to other pills, continue IV antibiotic at this time, might need renal ultrasound 2. Acute Metabolic encephalopathy with worsening off Significant memory loss, underlying history of cerebral aneurysm with vascular dementia, patient needs 24-hour supervision, on Aricept 5 mg daily, 3. Hypertension, on amlodipine 10 mg daily, and clonidine patch, which will be resumed, no change in Toprol ER 2.5 mg at bedtime 4. Hyperlipidemia on Pravachol 20 mg daily 5. Osteoporosis without any current fracture fall risk, osteoporosis fracture risk is high. 6. DVT prophylaxis with subcu heparin, and early ambulation 7. 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
[2020-10-28] MEDS: DONEPEZIL 5 MG TAB PO SCH (19:19)
[2020-10-28] MEDS: MELATONIN 5 MG TABLET PO SCH (19:20)
[2020-10-28] MEDS: METOPROLOL SUCCINATE (ER) 25 MG TAB.ER.24H PO SCH (19:20)
[2020-10-28] MEDS: FAMOTIDINE 20 MG TAB PO SCH (19:20)
[2020-10-29] MEDS: SODIUM CHLORIDE 0.9% 1,000 ML IV SCH (00:19)
[2020-10-29] MEDS: PRAVASTATIN SODIUM 20 MG TAB PO SCH (07:21)
[2020-10-29] MEDS: amLODIPine 10 MG TAB PO SCH (07:21)
[2020-10-29] MEDS: hydrALAZINE HCL 50 MG TAB PO SCH (07:21)
[2020-10-29 07:48] VITALS: BP 165/86; PULSE 60; RESP 17; TEMP 97.7
--- NOTE | 2020-10-30 15:36 | P.DS ---
Providers Date of admission: 10/26/20 22:41 Expected date of discharge: 10/29/20 Attending physician: Mari Liao Primary care physician: [facility] Course: HISTORY OF PRESENT ILLNESS This is an 85-year-old lady patient of Dr. Beltran. Has underlying history of CAD with recurrent dementia, CAD, CVA, cerebral aneurysm status post coiling the past, with prior DVT requiring Roosevelt filter, hypertension, who was seen in the emergency room secondary to increasing confusion, and severe dysuria, with today presentation. She has diminished appetite, no diarrhea, no hematuria, patient cannot identify the who is assisting at bedside, and they have been for over 35 years. In the emergency room, imaging include an acute abdominal series, for which no acute abdomen noted, no active cardiopulmonary disease, there is ventricle. Cardiac shunt noted in the x-ray, no hilar masses. Lungs are clear of infiltrates, no heart failure labs shows pyuria, with elevated alkaline phosp hatase, elevated calcium 10.6, BUN 32, creatinine normal at 0.83. No leukocytosis, 6.0, hemoglobin 12.5, lactic acid not done. Coronavirus negative patient admitted for acute cystitis with early pyelonephritis, IV antibiotics, cultures have been sent, 10/28: Patient's mood is much better today, she is able to eat, less confrontational with the , IV Rocephin infusing patient has pending urine cultures, currently has dysuria as well as complaining of right pelvic pain, appetite is still diminished, continued on IV hydration. No diarrhea, no rectal bleeding, no aspirated events. No falls, is at bedside, updated. She has multiple ALLERGIES for which the backs will be difficult for treatment, however if cultures are sensitive to cephalosporins, this would be the better choice. Hopefully cultures will be back tomorrow, anticipate discharge at that time. T-max 97.8, blood pressure 1:30 to 170 systolic, pulse ox 94% on room air. 10/29: Patient denies having any fever or chills. Urine culture is positive for E. coli. Patient has been afebrile, heart rate 60, blood pressure 165/86, pulse ox 96% on room air.Patient will be discharged home today in stable condition. DISCHARGE DIAGNOSES 1. Acute early pyelonephritis 2. Acute Metabolic encephalopathy 3. Hypertension 4. Hyperlipidemia 5. Osteoporosis 6. Sleep disorder with sleepwalking DISCHARGE PLAN Home Impression and plan of care have been directed as dictated by the signing physician. Veronique Coles nurse practitioner acting as scribe for signing physici an. Patient Condition at Discharge: Good Plan - Discharge Summary Discharge Rx Participant: No New Discharge Prescriptions: New Cephalexin [Keflex] 250 mg PO Q8HR #9 capsule Continue Famotidine [Pepcid] 20 mg PO HS@1900 Cranberry Conc/C/Bacill Coag [Cranberry Tablet] 1 tab PO BID@0700,1900 Melatonin 10 mg PO HS@1900 Docusate Sodium [Stool Softener] 300 mg PO DAILY@1500 Aspirin 81 mg PO DAILY@1500 Vitamin A 8,000 unit PO BID@0700,1900 Pravastatin Sodium [Pravachol] 20 mg PO DAILY@0700 hydrALAZINE HCL [Apresoline] 50 mg PO TID@0700,1500,1900 amLODIPine [Norvasc] 10 mg PO DAILY@0700 cloNIDine 0.1 MG/24HR PATCH [Catapres-TTS] 1 patch TRANSDERM SA Bifidobacterium Infantis [Align] 4 mg PO DAILY@1500 Calcium Carbonate [Calcium] 600 mg PO DAILY@1500 Metoprolol Succinate (ER) [Toprol XL] 12.5 mg PO HS@1900 Vit A/Vit C/Vit E/Zinc/Copper [ICAPS SOFTGEL] 1 cap PO BID@0700,1900 Donepezil [Aricept] 5 mg PO HS@1900 Cholecalciferol [Vitamin D3 (25 Mcg = 1000 Iu)] 50 mcg PO DAILY@1900 Discharge Medication List Aspirin 81 mg PO DAILY@1500 09/17/13 [History] Cranberry Conc/C/Bacill Coag [Cranberry Tablet] 1 tab PO BID@0700,1900 09/17/13 [History] Docusate Sodium [Stool Softener] 300 mg PO DAILY@1500 09/17/13 [History] Famotidine [Pepcid] 20 mg PO HS@19009/17/13 [History] Melatonin 10 mg PO HS@1900 09/17/13 [History] Pravastatin Sodium [Pravachol] 20 mg PO DAILY@0700 09/17/13 [History] Vitamin A 8,000 unit PO BID@0700,1900 09/17/13 [History] amLODIPine [Norvasc] 10 mg PO DAILY@0709/17/13 [History] hydrALAZINE HCL [Apresoline] 50 mg PO TID@0700,1500,189909/17/13 [History] cloNIDine 0.1 MG/24HR PATCH [Catapres-TTS] 1 patch TRANSDERM SA 12/12/16 [History] Bifidobacterium Infantis [Align] 4 mg PO DAILY@1500 04/05/19 [History] Calcium Carbonate [Calcium] 600 mg PO DAILY@1500 04/05/19 [History] Metoprolol Succinate (ER) [Toprol XL] 12.5 mg PO HS@189904/05/19 [History] Vit A/Vit C/Vit E/Zinc/Copper [ICAPS SOFTGEL] 1 cap PO BID@0700,189904/05/19 [History] Cholecalciferol [Vitamin D3 (25 Mcg = 1000 Iu)] 50 mcg PO DAILY@189910/26/20 [History] Donepezil [Aricept] 5 mg PO HS@189910/26/20 [History] Cephalexin [Keflex] 250 mg PO Q8HR #9 capsule 10/29/20 [Rx] Follow up Appointment(s)/Referral(s): Unruly Beltran MD [Primary Care Provider] - 1 Week Patient Instructions/Handouts: Urinary Tract Infection in Women (DC) Discharge Disposition: HOME SELF-CARE
== END 2020-10-29 10:11 | disposition home or self-care (01) ==
LOC: EC 20:12 → 6NMEDSUR 22:41
PROVIDERS: ADMIT Family Medicine; ATTEND Family Medicine
DX: N12 Tubulo-interstitial nephritis, not specified as acute or chronic (principal); B96.20 Unspecified Escherichia coli [E. coli] as the cause of diseases classified elsewhere; G93.41 Metabolic encephalopathy; I10 Essential (primary) hypertension; E78.5 Hyperlipidemia, unspecified; M81.0 Age-related osteoporosis without current pathological fracture; Z20.822 Contact with and (suspected) exposure to COVID-19; G47.9 Sleep disorder, unspecified; F51.3 Sleepwalking [somnambulism]; I25.10 Atherosclerotic heart disease of native coronary artery without angina pectoris; F01.50 Vascular dementia, unspecified severity, without behavioral disturbance, psychotic disturbance, mood disturbance, and anxiety; I67.1 Cerebral aneurysm, nonruptured; K21.9 Gastro-esophageal reflux disease without esophagitis; Z79.82 Long term (current) use of aspirin; Z79.899 Other long term (current) drug therapy; Z88.1 Allergy status to other antibiotic agents; Z88.2 Allergy status to sulfonamides; Z88.8 Allergy status to other drugs, medicaments and biological substances; Z91.040 Latex allergy status; Z91.09 Other allergy status, other than to drugs and biological substances; Z90.710 Acquired absence of both cervix and uterus; Z87.440 Personal history of urinary (tract) infections; Z86.718 Personal history of other venous thrombosis and embolism; Z86.73 Personal history of transient ischemic attack (TIA), and cerebral infarction without residual deficits
CPT/HCPCS: 96365; 96366; 96361; 96375; 99285; 36415; 93005; 80053; 83690; 84484; 85025; 81001; 87086; 87077; 87186; 87635; 74022; G0378 ×4; J0696 ×3

== ENCOUNTER 2021-02-16 02:16 | Emergency (ER) | payer MEDICARE, BC ==
[2021-02-16 02:27] VITALS: TEMP 97.9
[2021-02-16] MEDS ORDERED: ACETAMINOPHEN TAB 500 MG TAB PO STA (02:37)
--- NOTE | 2021-02-16 03:20 | CT ---
EXAMINATION TYPE: CT brain cspine wo con DATE OF EXAM: 02/16/2021 COMPARISON: CT brain 01/19/2014 HISTORY: fall CT DLP: 1295.1 mGycm Automated exposure control for dose reduction was used. Images of the brain and cervical spine obtained without contrast. There is patchy hypodensity in the periventricular white matter. There is also patchy cortical hypode nsity in the frontal lobes and parietal lobes bilaterally. There is no midline shift. There is metal artifact from apparent aneurysm surgery at the left side of the [place]. There is mild enlar gement of the ventricles. There is ventricular shunt catheter noted on the right side and the tip is near the midline in the frontal horn right lateral ventricle. There is left occipital scalp hematoma that measures 5 mm in thickness. I see no evidence of a skull fracture. IMPRESSION: There is hydrocephalus with enlargement of the ventricles that is slightly increased compared to old exam. Previous aneurysm surgery. [place]-white matter encephalomalacia involving the frontal and parietal lobes appears not significantly different than old exam.
--- NOTE | 2021-02-16 03:22 | XR ---
EXAMINATION TYPE: XR Hip RT and AP Pelvis DATE OF EXAM: 02/16/2021 COMPARISON: Pelvis x-ray 10/26/2020 HISTORY: Hip pain TECHNIQUE: 3 views FINDINGS: The pelvic ring appears intact. Proximal right femur and hip joint appear intact. I see no evidence of hip fracture. Sacroiliac joints are intact. Hip joint spaces are fairly normal. IMPRESSION: No acute abnormality of the pelvis and right hip. No change compared to old exam.
--- NOTE | 2021-02-16 03:24 | XR ---
EXAMINATION TYPE: XR lumbar spine 2 or 3V DATE OF EXAM: 02/16/2021 COMPARISON: NONE HISTORY: Low back pain. Fall. TECHNIQUE: 3 views FINDINGS: The lumbar vertebra show a second-degree L4-5 spondylolisthesis. There is moderate narrowin g of the disc spaces at L4-5 and L5-S1. There is no compression fracture. I see no definite spondylol ysis. The sacroiliac joints are intact. There is inferior vena cava filter. IMPRESSION: There is a degenerative second-degree L4-5 spondylolisthesis. No acute fracture seen. Ath erosclerotic vascular disease.
--- NOTE | 2021-02-16 03:43 | ED ---
Fall HPI - General Chief Complaint: Fall Stated Complaint: Fall Time Seen by Provider: 02/16/21 02:38 Source: patient, family Mode of arrival: wheelchair - History of Present Illness Initial Comments: 76-year-old female patient presented to the emergency department today for evaluation after having a fall out of bed. Patient does take a baby aspirin. She is unsure she had her head though there is a nightstand next to the bed. She denies any current headache. She is reporting some pain over the right hip region. She is able to stand and ambulate. states when he found her she was sitting on her buttocks. She denies any dizziness, blurred vision, double vision. Denies any significant neck or back pain. Denies numbness, tingling, weakness to the extremities. - Related Data Home Medications Medication Instructions Recorded Confirmed RX: Aspirin 81 mg PO DAILY@1500 09/17/13 10/26/20 RX: Cranberry Conc/C/Bacill Coag 1 tab PO BID@0700,1900 09/17/13 10/26/20 [Cranberry Tablet] RX: Docusate Sodium [Stool 300 mg PO DAILY@1500 09/17/13 10/26/20 Softener] RX: Famotidine [Pepcid] 20 mg PO HS@1900 09/17/13 10/26/20 RX: Melatonin 10 mg PO HS@1900 09/17/13 10/26/20 RX: Pravastatin Sodium [Pravachol] 20 mg PO DAILY@0700 09/17/13 10/26/20 RX: Vitamin A 8,000 unit PO BID@0700,1900 09/17/13 10/26/20 RX: amLODIPine [Norvasc] 10 mg PO DAILY@0700 09/17/13 10/26/20 RX: hydrALAZINE HCL [Apresoline] 50 mg PO TID@0700,1500,1900 09/17/13 10/26/20 RX: cloNIDine 0.1 MG/24HR PATCH 1 patch TRANSDERM SA 12/12/16 10/26/20 [Catapres-TTS] RX: Bifidobacterium Infantis 4 mg PO DAILY@1500 04/05/19 10/26/20 [Align] RX: Calcium Carbonate [Calcium] 600 mg PO DAILY@1500 04/05/19 10/26/20 RX: Metoprolol Succinate (ER) 12.5 mg PO HS@1900 04/05/19 10/26/20 [Toprol XL] RX: Vit A/Vit C/Vit E/Zinc/Copper 1 cap PO BID@0700,1900 04/05/19 10/26/20 [ICAPS SOFTGEL] RX: Cholecalciferol [Vitamin D3 50 mcg PO DAILY@1900 10/26/20 10/26/20 (25 Mcg = 1000 Iu)] RX: Donepezil [Aricept] 5 mg PO HS@1900 10/26/20 10/26/20 Previous Rx's Medication Instructions Recorded Cephalexin [Keflex] 250 mg PO Q8HR #9 capsule 10/29/20 Allergies Allergy/AdvReac Type Severity Reaction Status Date / Time aloe vera Allergy Unknown Verified 02/16/21 02:27 amlodipine besylate Allergy Unknown Verified 02/16/21 02:27 [From Norvasc] cyclobenzaprine Allergy Unknown Verified 02/16/21 02:27 [Cyclobenzaprine] diclofenac Allergy Unknown Verified 02/16/21 02:27 hydrochlorothiazide Allergy Unknown Verified 02/16/21 02:27 [From Zestoretic] latex Allergy Rash/Hives Verified 02/16/21 02:27 levofloxacin [From Levaquin] Allergy Unknown Verified 02/16/21 02:27 lisinopril Allergy Unknown Verified 02/16/21 02:27 mesalamine [From Asacol] Allergy Unknown Verified 02/16/21 02:27 sulfamethoxazole Allergy Unknown Verified 02/16/21 02:27 [From Bactrim] trimethoprim [From Bactrim] Allergy Unknown Verified 02/16/21 02:27 Review of Systems ROS Statement: Those systems with pertinent positive or pertinent negative responses have been documented in the HPI. ROS Other: All systems not noted in ROS Statement are negative. Past Medical History Past Medical History: Coronary Artery Disease (CAD), CVA/TIA, Deep Vein Thrombosis (DVT), GERD/Reflux, Hypertension Additional Past Medical History / Comment(s): constipation, brain aneurysm, urinary tract infections History of Any Multi-Drug Resistant Organisms: None Reported Additional Past Surgical History / Comment(s): brain, artem filter, hysterectomy Past Anesthesia/Blood Transfusion Reactions: No Reported Reaction Past Psychological History: No Psychological Hx Reported Smoking Status: Never smoker Past Alcohol Use History: None Reported Past Drug Use History: None Reported General Exam Limitations: no limitations General appearance: alert, in no apparent distress, other (This is a well- developed, well-nourished adult female patient in no acute distress. Vital signs upon presentation are temperature 97.9F, pulse 70, respirations 20, blood pressure 187/81, pulse ox 98% on room air.) Head exam: Present: atraumatic, normocephalic, normal inspection Eye exam: Present: normal appearance, PERRL, EOMI. Absent: scleral icterus, conjunctival injection, nystagmus, periorbital swelling ENT exam: Present: normal exam, normal oropharynx Neck exam: Present: normal inspection, full ROM, other (Nontender, no step-off, no deformity to firm midline palpation of the posterior cervical spine. Full range of motion without pain or limitation.). Absent: tenderness, meningismus, lymphadenopathy Respiratory exam: Present: normal lung sounds bilaterally. Absent: respiratory distress, wheezes, rales, rhonchi, stridor Cardiovascular Exam: Present: regular rate, normal rhythm, normal heart sounds. Absent: systolic murmur, diastolic murmur, rubs, gallop, clicks GI/Abdominal exam: Present: soft, normal bowel sounds. Absent: distended, tenderness, guarding, rebound, rigid Extremities exam: Present: normal inspection, full ROM, tenderness (Right lateral hip), normal capillary refill, other (No pelvic instability noted to firm outpatient of the bilateral hips. Skin to the legs is pink, warm, dry. Cap refill less than 3 seconds. Pedal pulses 2+). Absent: pedal edema, joint swelling, calf tenderness Back exam: Present: normal inspection. Absent: vertebral tenderness Neurological exam: Present: alert, oriented X3, CN II-XII intact Psychiatric exam: Present: normal affect, normal mood Skin exam: Present: warm, dry, intact, normal color. Absent: rash Course Vital Signs 02/16/21 02/16/21 02:20 03:50 Temperature 97.9 F Pulse Rate 70 79 Respiratory 20 18 Rate Blood Pressure 187/81 177/87 O2 Sat by Pulse 98 97 Oximetry Medical Decision Making - Medical Decision Making 85-year-old female patient presenting to the emergency department today for evaluation after falling out of bed. Physical examination was relatively unremarkable. She has some mild right lateral hip tenderness. She is able to stand and ambulate. She is neurologically intact with no focal deficits. CT brain and C-spine was negative. X-ray of the lumbar spine and right hip and pelvis were all negative. Patient did have a little bit increased hydrocephalus on her computed tomography scan I did inform her of this and they are instructed to follow-up with the neurologist for further evaluation. They're discharged home to follow-up the primary care physician for recheck in 1-2 days. Return parameters discussed in detail. They verbalize understanding and agree with this plan. Case is discussed with my attending Dr. Johnson. - Radiology Data Radiology results: report reviewed, image reviewed CT brain C-spine without contrast was obtained. A Setswana reviewed in its entirety. Impression by Dr. Moody shows hydrocephalus with enlargement of the ventricles that is slightly increased compared to old exam. Previous aneurysm surgery. [place]-white matter encephalomalacia involving the frontal and parietal lobes appears not significantly different than old exam. 3 views of the right hip and AP pelvis is obtained. Report was reviewed in its entirety. Impression by Dr. Moody shows no acute abnormality of the pelvis and right hip. No change compared to old exam 3 views of the lumbar spine are obtained. Report was reviewed in its entirety. Impression by Dr. Moody shows degenerative second degree L4 to 5 spondylolisthesis. No acute fracture seen. Atherosclerotic vascular disease. Disposition Clinical Impression: Right hip pain, Fall Disposition: HOME SELF-CARE Condition: Good Instructions (If sedation given, give patient instructions): Fall Prevention fo r Older Adults (ED), Hip Pain (ED) Additional Instructions: Follow-up with primary care physician for recheck in 1-2 days. Return for any new, worsening, or concerning symptoms. Is patient prescribed a controlled substance at d/c from ED?: No Referrals: Unruly Beltran MD [Primary Care Provider] - 1-2 days Time of Disposition: 03:43
[2021-02-16 03:52] VITALS: BP 177/87; PULSE 79; RESP 18
== END 2021-02-16 03:52 | disposition home or self-care (01) ==
LOC: EC 02:16
DX: M25.551 Pain in right hip (principal); I10 Essential (primary) hypertension; I25.10 Atherosclerotic heart disease of native coronary artery without angina pectoris; K21.9 Gastro-esophageal reflux disease without esophagitis; Z86.718 Personal history of other venous thrombosis and embolism; Z86.73 Personal history of transient ischemic attack (TIA), and cerebral infarction without residual deficits; Z87.440 Personal history of urinary (tract) infections; Z79.82 Long term (current) use of aspirin; Z79.899 Other long term (current) drug therapy; Z88.1 Allergy status to other antibiotic agents; Z88.2 Allergy status to sulfonamides; Z88.8 Allergy status to other drugs, medicaments and biological substances; Z90.710 Acquired absence of both cervix and uterus; Z91.040 Latex allergy status; W06.XXXA Fall from bed, initial encounter
CPT/HCPCS: 70450; 72100; 72125; 73502; 99284

== ENCOUNTER 2021-03-03 12:27 | Inpatient (IN) | payer MEDICARE, BC ==
--- NOTE | 2021-03-03 13:05 | ED ---
General Adult HPI - General Chief complaint: Altered Mental Status Stated complaint: AMS Time Seen by Provider: 03/03/21 12:42 Source: family, RN notes reviewed, old records reviewed Mode of arrival: wheelchair Limitations: altered mental status - History of Present Illness Initial comments: Patient is an 85-year-old female with past medical history remarkable for dementia, CAD, CVA, prior aneurysm surgery, with a G[employer] shunt who presents emergency Department with progressively worsening dementia. I evaluated the patient when she was placed in a room. Patient's has brought the patient for evaluation. He is the primary tunnel heading supervisor for the patient. He states that she is at her baseline mental status but over the last year to year and a half, she has been having worsening dementia. She wanders off, confabulates, it is becoming more difficult to take care of him by himself. He was recently seen here in the department after she fell, however there were discharged home with follow-up with neurology. He does not believe that they can make it until the neurology appointment next month. After discussion with the patient as well as her , it seems that the patient's is seeking possible placement as he believes he can no longer take care of her. He denies any known fevers, sick contacts, sick symptoms for the patient. She has otherwise been acting normally. She is normally alert and oriented times one to her self. She is not having any worsening urinary incontinence. She is not having any change in her gait. She is vaccinated for COVID-19 with the booster. No other acute complaints at this time. - Related Data Home Medications Medication Instructions Recorded Confirmed Cranberry Conc/C/Bacill Coag 1 tab PO BID@0700,19009/17/13 03/03/21 [Cranberry Tablet] Docusate Sodium [Stool Softener] 300 mg PO DAILY@1500 09/17/13 03/03/21 Famotidine [Pepcid] 20 mg PO HS@189909/17/13 03/03/21 Melatonin 10 mg PO HS@189909/17/13 03/03/21 Pravastatin Sodium [Pravachol] 20 mg PO DAILY@0700 09/17/13 03/03/21 Vitamin A 8,000 unit PO BID@0700,1900 09/17/13 03/03/21 amLODIPine [Norvasc] 10 mg PO DAILY@0700 09/17/13 03/03/21 hydrALAZINE HCL [Apresoline] 50 mg PO TID@0700,1500,1900 09/17/13 03/03/21 cloNIDine 0.1 MG/24HR PATCH 1 patch TRANSDERM SA 12/12/16 03/03/21 [Catapres-TTS] Bifidobacterium Infantis [Align] 4 mg PO DAILY@1500 04/05/19 03/03/21 Calcium Carbonate [Calcium] 600 mg PO DAILY@1500 04/05/19 03/03/21 Metoprolol Succinate (ER) [Toprol 12.5 mg PO HS@1900 04/05/19 03/03/21 XL] Vit A/Vit C/Vit E/Zinc/Copper 1 cap PO BID@0700,1900 04/05/19 03/03/21 [ICAPS SOFTGEL] Cholecalciferol [Vitamin D3 (25 50 mcg PO DAILY@1900 10/26/20 03/03/21 Mcg = 1000 Iu)] Donepezil HCl [Aricept] 10 mg PO HS@1900 03/03/21 03/03/21 Allergies Allergy/AdvReac Type Severity Reaction Status Date / Time aloe vera Allergy Unknown Verified 03/03/21 13:49 amlodipine besylate Allergy Unknown Verified 03/03/21 13:49 [From Norvasc] cyclobenzaprine Allergy Unknown Verified 03/03/21 13:49 [Cyclobenzaprine] diclofenac Allergy Unknown Verified 03/03/21 13:49 hydrochlorothiazide Allergy Unknown Verified 03/03/21 13:49 [From Zestoretic] latex Allergy Rash/Hives Verified 03/03/21 13:49 levofloxacin [From Levaquin] Allergy Unknown Verified 03/03/21 13:49 lisinopril Allergy Unknown Verified 03/03/21 13:49 mesalamine [From Asacol] Allergy Unknown Verified 03/03/21 13:49 sulfamethoxazole Allergy Unknown Verified 03/03/21 13:49 [From Bactrim] trimethoprim [From Bactrim] Allergy Unknown Verified 03/03/21 13:49 Review of Systems ROS Statement: Those systems with pertinent positive or pertinent negative responses have been documented in the HPI. Review of Systems: Difficult as the patient has a history of dementia. She has no acute complaints at this time. CONST: Denies fever EYES: Denies blurry vision ENT: Denies nasal congestion C/V: Denies Chest pain RESP: Denies shortness of breath GI: Denies abdominal pain : Denies dysuria SKIN: Denies rash. MSK: Denies joint pain. NEURO: Denies headache ROS Other: All systems not noted in ROS Statement are negative. Past Medical History Past Medical History: Coronary Artery Disease (CAD), CVA/TIA, Dementia, Deep Vein Thrombosis (DVT), GERD/Reflux, Hypertension Additional Past Medical History / Comment(s): constipation, brain aneurysm, urinary tract infections History of Any Multi-Drug Resistant Organisms: None Reported Additional Past Surgical History / Comment(s): brain, artem filter, h ysterectomy Past Anesthesia/Blood Transfusion Reactions: No Reported Reaction Past Psychological History: No Psychological Hx Reported Smoking Status: Never smoker Past Alcohol Use History: None Reported Past Drug Use History: None Reported General Exam - General Exam Comments Initial Comments: General: Appears in no acute distress. HEAD: Normal with no signs of head trauma. EYES: PERRLA, EOMI, conjunctiva normal, no discharge. Pupils are 3 mm and equal bilaterally. ENT: Hearing grossly intact, normal oropharynx. RESPIRATORY: Clear breath sounds bilaterally. No wheezes, rales, or rhonchi. C/V: Regular rate and rhythm. S1 and S2 auscultated, no edema, peripheral pulses 2+ and intact throughout ABD: Abd is soft, nontender, nondistended EXT: Normal range of motion, no obvious deformity SKIN: No rashes or lesions observed on exposed skin. NEURO: Alert and oriented times one. Can ambulate without difficulty. Cranial nerves II through XII are intact. No focal sensory strength deficits. Factoring in the patient's baseline, NIH is 0. GCS is 15. Patient is a history of de mentia and is at her baseline according to . Limitations: altered mental status Course Vital Signs 03/03/21 03/03/21 12:33 17:21 Temperature 98.1 F Pulse Rate 88 79 Respiratory 18 16 Rate Blood Pressure 180/89 159/83 O2 Sat by Pulse 96 96 Oximetry Medical Decision Making - Medical Decision Making Based on the patient's presentation and physical exam, she appears to have progressively worsening dementia, so much so that the patient's feels he cannot longer take care of her. There appears to be no acute event that caused this, as it has been ongoing for the last 1 year to year and a half. However due to the patient having a history of the [employer] shunt, we will obtain a CT head to ensure there is no worsening hydrocephalus, which is unlikely as the patient has been experiencing these symptoms that of been slowly progressively worsening over the last year and a half. It is likely secondary to her dementia.. Basic labs will be obtained. Urinalysis will be obtained. Patient will likely be admitted for placement. Patient's after discussion with him was in agreement with this plan. Patient's labs are remarkable for a UTI with greater than 182 WBCs, positive nitrates, positive leukoesterase. She is Covid negative. Remainder of her labs are unremarkable. Patient's CT imaging revealed stable hydrocephalus. I updated the patient's family and regarding these findings. He still wishes for the patient to be admitted for placement. Patient will be started on Rocephin for acute urinary tract infection and administered 1 L fluid bolus. They were in agreement this plan. Patient remains unchanged in terms of physical exam at this time. I contacted the patient's admitting physician, Dr. Damon, who accepted the patient. Patient was therefore admitted in stable condition, likely for placement in treatment of her UTI. - Lab Data Result diagrams: 03/03/21 13:16 03/03/21 13:16 Lab Results 03/03/21 03/03/21 03/03/21 Range/Units 13:13 13:16 13:16 WBC 7.1 (3.8-10.6) k/uL RBC 4.44 (3.80-5.40) m/uL Hgb 12.7 (11.4-16.0) gm/dL Hct 39.5 (34.0-46.0) % MCV 88.9 (80.0-100.0) fL MCH 28.6 (25.0-35.0) pg MCHC 32.2 (31.0-37.0) g/dL RDW 14.0 (11.5-15.5) % Plt Count 344 (150-450) k/uL MPV 8.1 Neutrophils % 66 % Lymphocytes % 20 % Monocytes % 9 % Eosinophils % 1 % Basophils % 1 % Neutrophils # 4.7 (1.3-7.7) k/uL Lymphocytes # 1.5 (1.0-4.8) k/uL Monocytes # 0.7 (0-1.0) k/uL Eosinophils # 0.1 (0-0.7) k/uL Basophils # 0.1 (0-0.2) k/uL Sodium 137 (137-145) mmol/L Potassium 4.4 (3.5-5.1) mmol/L Chloride 103 (98-107) mmol/L Carbon Dioxide 26 (22-30) mmol/L Anion Gap 8 mmol/L BUN 29 H (7-17) mg/dL Creatinine 0.76 (0.52-1.04) mg/dL Est GFR (CKD-EPI)AfAm 84 (>60 ml/min/1.73 sqM) Est GFR (CKD-EPI)NonAf 73 (>60 ml/min/1.73 sqM) Glucose 82 (74-99) mg/dL POC Glucose (mg/dL) 82 (75-99) mg/dL POC Glu Rn Social Services ID Willing, Constance Calcium 9.9 (8.4-10.2) mg/dL Urine Color Urine Appearance (Clear) Urine pH (5.0-8.0) Ur Specific [place] (1.001-1.035) Urine Protein (Negative) Urine Glucose (UA) (Negative) Urine Ketones (Negative) Urine Blood (Negative) Urine Nitrite (Negative) Urine Bilirubin (Negative) Urine Urobilinogen (<2.0) mg/dL Ur Leukocyte Esterase (Negative) Urine RBC (0-5) /hpf Urine WBC (0-5) /hpf Urine WBC Clumps (None) /hpf Urine Bacteria (None) /hpf Urine Mucus (None) /hpf Coronavirus (PCR) (Not Detectd) 03/03/21 03/03/21 Range/Units 13:28 13:57 WBC (3.8-10.6) k/uL RBC (3.80-5.40) m/uL Hgb (11.4-16.0) gm/dL Hct (34.0-46.0) % MCV (80.0-100.0) fL MCH (25.0-35.0) pg MCHC (31.0-37.0) g/dL RDW (11.5-15.5) % Plt Count (150-450) k/uL MPV Neutrophils % % Lymphocytes % % Monocytes % % Eosinophils % % Basophils % % Neutrophils # (1.3-7.7) k/uL Lymphocytes # (1.0-4.8) k/uL Monocytes # (0-1.0) k/uL Eosinophils # (0-0.7) k/uL Basophils # (0-0.2) k/uL Sodium (137-145) mmol/L Potassium (3.5-5.1) mmol/L Chloride (98-107) mmol/L Carbon Dioxide (22-30) mmol/L Anion Gap mmol/L BUN (7-17) mg/dL Creatinine (0.52-1.04) mg/dL Est GFR (CKD-EPI)AfAm (>60 ml/min/1.73 sqM) Est GFR (CKD-EPI)NonAf (>60 ml/min/1.73 sqM) Glucose (74-99) mg/dL POC Glucose (mg/dL) (75-99) mg/dL POC Glu Rn Social Services ID Calcium (8.4-10.2) mg/dL Urine Color Yellow Urine Appearance Cloudy H (Clear) Urine pH 7.0 (5.0-8.0) Ur Specific [place] 1.014 (1.001-1.035) Urine Protein 1+ H (Negative) Urine Glucose (UA) Negative (Negative) Urine Ketones Negative (Negative) Urine Blood Negative (Negative) Urine Nitrite Positive H (Negative) Urine Bilirubin Negative (Negative) Urine Urobilinogen <2.0 (<2.0) mg/dL Ur Leukocyte Esterase Large H (Negative) Urine RBC 2 (0-5) /hpf Urine WBC >182 H (0-5) /hpf Urine WBC Clumps Few H (None) /hpf Urine Bacteria Few H (None) /hpf Urine Mucus Rare H (None) /hpf Coronavirus (PCR) Not Detected (Not Detectd) Disposition Clinical Impression: UTI (urinary tract infection), Dementia, Encounter for rehabilitation evaluation Disposition: ADMITTED IP TO THIS [facility] Condition: Stable
[2021-03-03 13:17] LABS: Glucose,Whole Blood 82 mg/dL (75-99)
--- NOTE | 2021-03-03 13:33 | CT ---
EXAMINATION TYPE: CT brain wo con DATE OF EXAM: 03/03/2021 COMPARISON: 921 HISTORY: altered mental status CT DLP: 1044.[address] of the brain was performed. There is stable hydrocephalus. Right frontal shunt catheter is unchanged in position. Diffuse decreas ed attenuation throughout the brain parenchyma. Remote insult left frontal lobe. Surgical clips supra sellar region and resultant streak artifact limiting evaluation. No evidence for intracranial hemorrh age. There is decreased attenuation about the periventricular white matter and deep white matter of both c erebral hemispheres, compatible with chronic small vessel ischemia. Differential diagnosis does inclu de demyelination. No mass effects are seen.No midline shift. Osseous calvarium is intact. If symptoms persist consider MRI. IMPRESSION: 1. Stable brain.
[2021-03-03 13:36] LABS: Basophils # (A) 0.1 k/uL (0-0.2); Basophils % (A) 1 %; Eosinophils # (A) 0.1 k/uL (0-0.7); Eosinophils % (A) 1 %; HCT 39.5 % (34.0-46.0); HGB 12.7 gm/dL (11.4-16.0); Lymphocytes # (A) 1.5 k/uL (1.0-4.8); Lymphocytes % (A) 20 %; MCH 28.6 pg (25.0-35.0); MCHC 32.2 g/dL (31.0-37.0); MCV 88.9 fL (80.0-100.0); Mean Platelet Volume 8.1; Monocytes # (A) 0.7 k/uL (0-1.0); Monocytes % (A) 9 %; Neutrophils # (A) 4.7 k/uL (1.3-7.7); Neutrophils % (A) 66 %; Platelet Count 344 k/uL (150-450); RBC 4.44 m/uL (3.80-5.40); WBC 7.1 k/uL (3.8-10.6)
[2021-03-03 13:53] LABS: Calcium 9.9 mg/dL (8.4-10.2); Potassium 4.4 mmol/L (3.5-5.1)
[2021-03-03 14:21] LABS: Appearance,Urine Cloudy (Clear); Bacteria,Urine Few /hpf; Bilirubin,Urine Negative (Negative); Blood,Urine Negative (Negative); Color,Urine Yellow; Glucose,Urine (UA) Negative (Negative); Ketones,Urine Negative (Negative); Leukocyte Esterase,Urine Large (Negative); Mucus,Urine Rare /hpf; Nitrite,Urine Positive (Negative); Protein,Urine 1+ (Negative); RBC,Urine 2 /hpf (0-5); Specific Gravity,Urine 1.014 (1.001-1.035); Urobilinogen,Urine <2.0 mg/dL (<2.0); WBC,Urine >182 /hpf (0-5)
[2021-03-03] MEDS ORDERED: SODIUM CHLORIDE 0.9% 1,000 ML IV STA (14:31)
[2021-03-03] MEDS ORDERED: NALOXONE 0.4 MG/ML 1 ML VIAL IV PRN (14:54)
[2021-03-03] MEDS: DOCUSATE 100 MG CAP PO SCH (16:24)
[2021-03-03] MEDS: CALCIUM CARBONATE 500 MG CHEWABLE PO SCH (16:24)
[2021-03-03] MEDS: hydrALAZINE HCL 50 MG TAB PO SCH ×2 (16:24→19:48)
[2021-03-03] MEDS: BIFIDOBACTERIUM INFANTIS 4 MG PO SCH (19:08)
[2021-03-03] MEDS: [UNRECOGNIZED DRUG - OTHER] PO SCH (19:09)
[2021-03-03] MEDS: VIT A,C & E-LUTEIN-MINERALS 1 EACH TAB PO SCH (19:47)
[2021-03-03] MEDS: METOPROLOL SUCCINATE (ER) 25 MG TAB.ER.24H PO SCH (19:48)
[2021-03-03] MEDS: FAMOTIDINE 20 MG TAB PO SCH (19:48)
[2021-03-03] MEDS: VITAMIN A 10,000 UNIT (3000 MCG) CAPSULE PO SCH (19:48)
[2021-03-03] MEDS: DONEPEZIL 10 MG TAB PO SCH (19:48)
[2021-03-03] MEDS: MELATONIN 5 MG TABLET PO SCH (19:48)
[2021-03-03] MEDS: CHOLECALCIFEROL 25 MCG (1000 IU) TABLET PO SCH (19:48)
[2021-03-03] MEDS: HEPARIN SODIUM,PORCINE/PF 5,000 UNIT/0.5 ML SYRINGE SQ SCH (20:00)
[2021-03-04] MEDS: hydrALAZINE HCL 50 MG TAB PO SCH ×3 (08:26→19:17)
[2021-03-04] MEDS: VITAMIN A 10,000 UNIT (3000 MCG) CAPSULE PO SCH ×2 (08:27→19:17)
[2021-03-04] MEDS: PRAVASTATIN SODIUM 20 MG TAB PO SCH (08:27)
[2021-03-04] MEDS: HEPARIN SODIUM,PORCINE/PF 5,000 UNIT/0.5 ML SYRINGE SQ SCH ×2 (08:27→20:34)
[2021-03-04] MEDS: amLODIPine 10 MG TAB PO SCH (08:27)
[2021-03-04] MEDS: VIT A,C & E-LUTEIN-MINERALS 1 EACH TAB PO SCH ×2 (08:28→19:17)
[2021-03-04] MEDS: [UNRECOGNIZED DRUG - OTHER] PO SCH ×2 (08:28→19:18)
[2021-03-04] MEDS: BIFIDOBACTERIUM INFANTIS 4 MG PO SCH (15:59)
[2021-03-04] MEDS: DOCUSATE 100 MG CAP PO SCH (16:30)
[2021-03-04] MEDS: CALCIUM CARBONATE 500 MG CHEWABLE PO SCH (16:30)
--- NOTE | 2021-03-04 18:33 | P.HPIM ---
History of Present Illness H&P Date: 03/04/21 HISTORY OF PRESENT ILLNESS This is an 85-year-old female patient of Dr. Beltran with past medical history of CAD, CVA, cerebral aneurysm status post coiling the past and vascular dementia, with prior DVT requiring Heidelberg filter, hypertension, hydrocephalus s/p THIRD MILLER shunt 14 years ago. Patient lives at home with her . He states that her dementia and confusion have been getting worse. She is also incontinent of bladder and bowel. On Thursday evening, patient was on the porch while her made dinner. She wandered off the porch and when he came out of the house, she tried to take off and went to Dr. Tobias's home (neighbor) and he convinced her to go home. Patient was brought into the Emergency Center and found to be afebrile, BP 189/89, HR 88, PO 96% on RA. CBC WNL, Electrolytes WNL. BUN 29, creatinine 1.76. UA: Nitrite positive, Leuoesterase large, WBC >182, Clumps many. Covid PCR not detected. Ct of the brain found stable findings. Patient seen today in the ER waiting for a med-surg bed, started on Ceftriaxone and urine culture in progress. REVIEW OF SYSTEMS Constitutional: No fever, no chills, no night sweats. No weight change. No weakness, fatigue or lethargy. No daytime sleepiness. EENT: No headache. No blurred vision or double vision, no loss of vision. No loss of Hearing, no ringing in the ears, no dizziness. No nasal drainage or congestion. No epistaxis. No sore throat. Lungs: No shortness of breath, cough, no sputum production. No wheezing. Cardiovascular: No chest pain, no lower extremity edema. No palpitations. No paroxysmal nocturnal dyspnea. No orthopnea. No lightheadedness or dizziness. No syncopal episodes. Abdominal: No abdominal pain. No nausea, vomiting. No diarrhea. No constipation. No bloody or tarry stools. No loss of appetite. Genitourinary: No dysuria, increased frequency, urgency. No urinary retention. Musculoskeletal: No myalgias. No muscle weakness, no gait dysfunction, no frequent falls. No back pain. No neck pain. Integumentary: No wounds, no lesions. No rash or pruritus. No unusual bruising. No change in hair or nails. Neurologic: No aphasia. No facial droop. Noted chronic worsening change in mentation. No head injury. No headache. No paralysis. No paresthesia. Psychiatric: No depression. No anxiety. No mood swings. Endocrine: No abnormal blood sugars. No weight change. No excessive sweating or thirst. No cold intolerance. SOCIAL HISTORY Patient was a smoker of 1/2 -1 PPD for 40+years and quit 4 years ago. No marijuana, alcohol or illicit drug use. She lives at home with her and he is her primary medicare interviewer. FAMILY HISTORY Father in his 60s from [place], Mother dies at age 60 from some type of cancer- does not remember. One brother from a stroke and one brother is alive at age 86 with history of valve replacement. She has one sister that dies at age 88 from old age. She has 3 children. PHYSICAL EXAMINATION Gen: This is an 85-year-old female patient resting on the ER stretcher and appears to be in no acute distress. HEENT: Head is atraumatic, normocephalic. Pupils equal, round. Sclerae is anicteric. NECK: Supple. No JVD. No lymphadenopathy. No thyromegaly. LUNGS: Clear to auscultation. No wheezes or rhonchi. No intercostal retractions. HEART: Regular rate and rhythm. No murmur. ABDOMEN: Soft. Bowel sounds are present. No masses. No tenderness. EXTREMITIES: No pedal edema. No calf tenderness. NEUROLOGICAL: Patient is awake, alert. She is able to state the year and her location, short-term memory deficits noted. Cranial nerves 2 through 12 are grossly intact. ASSESSMENT AND PLAN 1. Acute UTI. Continue Ceftriaxone and monitor urine culture. 2. History of CVA x8. 3. Vascular dementia, with worsening symptoms. Patient has scheduled appointment with Dr. Reid on Mar 11. 4. CAD, stable, no c/o CP. 5. Hx of hydrocephalus with THIRD MILLER shunt 14 years ago. 6. Remote history of tobacco use and dependence. 7. HTN. Continue Amlodipine 10 mg daily, Toprol XL 12.5 mg at hs, clonidine 0.1 mg/24h patch daily, hydralazine 50 mg tid. 8. HLD. Continue pravastin 20 mg daily. 9. GERD and GI prophylaxis. Continue pepcid 20 mg at hs. 10. DVT prophylaxis. Heparin sq. 11. COVID-19 testing negative. Patient has been hospitalized during a pandemic. Patient will be admitted to the hospital for a minimum of 2 night stay. CODE STATUS: full code with no intubation. to bring in Living Will/DPOA papers. DISCHARGE PLAN TBD. Most likely return home as would like more info on adult daycare and not ready to look at long-term placement. Impression and plan of care have been directed as dictated by the signing physician. Veronique Coles nurse practitioner acting as scribe for signing physician. Past Medical History Past Medical History: Coronary Artery Disease (CAD), CVA/TIA, Dementia, Deep Vein Thrombosis (DVT), GERD/Reflux, Hypertension Additional Past Medical History / Comment(s): constipation, brain aneurysm, urinary tract infections History of Any Multi-Drug Resistant Organisms: None Reported Additional Past Surgical History / Comment(s): brain, artem filter, hysterectomy Past Anesthesia/Blood Transfusion Reactions: No Reported Reaction Past Psychological History: No Psychological Hx Reported Smoking Status: Never smoker Past Alcohol Use History: None Reported Past Drug Use History: None Reported Medications and Allergies Home Medications Medication Instructions Recorded Confirmed Type Cranberry Conc/C/Bacill Coag 1 tab PO BID@0700,1900 09/17/13 03/03/21 History [Cranberry Tablet] Docusate Sodium [Stool Softener] 300 mg PO DAILY@1500 09/17/13 03/03/21 History Famotidine [Pepcid] 20 mg PO HS@1900 09/17/13 03/03/21 History Melatonin 10 mg PO HS@1900 09/17/13 03/03/21 History Pravastatin Sodium [Pravachol] 20 mg PO DAILY@0700 09/17/13 03/03/21 History Vitamin A 8,000 unit PO BID@0700,1900 09/17/13 03/03/21 History amLODIPine [Norvasc] 10 mg PO DAILY@0700 09/17/13 03/03/21 History hydrALAZINE HCL [Apresoline] 50 mg PO TID@0700,1500,1900 09/17/13 03/03/21 History cloNIDine 0.1 MG/24HR PATCH 1 patch TRANSDERM SA 12/12/16 03/03/21 History [Catapres-TTS] Bifidobacterium Infantis [Align] 4 mg PO DAILY@1500 04/05/19 03/03/21 History Calcium Carbonate [Calcium] 600 mg PO DAILY@1500 04/05/19 03/03/21 History Metoprolol Succinate (ER) [Toprol 12.5 mg PO HS@1900 04/05/19 03/03/21 History XL] Vit A/Vit C/Vit E/Zinc/Copper 1 cap PO BID@0700,1900 04/05/19 03/03/21 History [ICAPS SOFTGEL] Cholecalciferol [Vitamin D3 (25 50 mcg PO DAILY@1900 10/26/20 03/03/21 History Mcg = 1000 Iu)] Donepezil HCl [Aricept] 10 mg PO HS@1900 03/03/21 03/03/21 History Allergies Allergy/AdvReac Type Severity Reaction Status Date / Time aloe vera Allergy Unknown Verified 03/03/21 13:49 amlodipine besylate Allergy Unknown Verified 03/03/21 13:49 [From Norvasc] cyclobenzaprine Allergy Unknown Verified 03/03/21 13:49 [Cyclobenzaprine] diclofenac Allergy Unknown Verified 03/03/21 13:49 hydrochlorothiazide Allergy Unknown Verified 03/03/21 13:49 [From Zestoretic] latex Allergy Rash/Hives Verified 03/03/21 13:49 levofloxacin [From Levaquin] Allergy Unknown Verified 03/03/21 13:49 lisinopril Allergy Unknown Verified 03/03/21 13:49 mesalamine [From Asacol] Allergy Unknown Verified 03/03/21 13:49 sulfamethoxazole Allergy Unknown Verified 03/03/21 13:49 [From Bactrim] trimethoprim [From Bactrim] Allergy Unknown Verified 03/03/21 13:49 Physical Exam Vitals: Vital Signs Temp Pulse Pulse Resp BP BP Pulse Ox 03/04/21 08:00 98.1 F 91 17 169/97 97 03/04/21 06:00 82 22 159/91 98 03/03/21 20:52 69 16 93 L 03/03/21 17:21 79 16 159/83 96 03/03/21 12:33 98.1 F 88 18 180/89 96 Results CBC & Chem 7: 03/03/21 13:16 03/03/21 13:16 Labs: Abnormal Lab Results - Last 24 Hours (Table) 03/03/21 03/03/21 Range/Units 13:16 13:57 BUN 29 H (7-17) mg/dL Urine Appearance Cloudy H (Clear) Urine Protein 1+ H (Negative) Urine Nitrite Positive H (Negative) Ur Leukocyte Esterase Large H (Negative) Urine WBC >182 H (0-5) /hpf Urine WBC Clumps Few H (None) /hpf Urine Bacteria Few H (None) /hpf Urine Mucus Rare H (None) /hpf Microbiology - Last 24 Hours (Table) 03/03/21 13:57 Urine Culture - Preliminary Urine,Clean Catch
[2021-03-04] MEDS: METOPROLOL SUCCINATE (ER) 25 MG TAB.ER.24H PO SCH (19:17)
[2021-03-04] MEDS: MELATONIN 5 MG TABLET PO SCH (19:17)
[2021-03-04] MEDS: FAMOTIDINE 20 MG TAB PO SCH (19:18)
[2021-03-04] MEDS: DONEPEZIL 10 MG TAB PO SCH (19:18)
[2021-03-04] MEDS: CHOLECALCIFEROL 25 MCG (1000 IU) TABLET PO SCH (19:18)
[2021-03-05] MEDS ORDERED: LOSARTAN 50 MG TAB PO STA (01:08)
[2021-03-05] MEDS ORDERED: hydrALAZINE HCL 20 MG/ML 1 ML VIAL IVP PRN (01:09)
[2021-03-05] MEDS: amLODIPine 10 MG TAB PO SCH (07:52)
[2021-03-05] MEDS: LOSARTAN 50 MG TAB PO SCH (07:52)
[2021-03-05] MEDS: HEPARIN SODIUM,PORCINE/PF 5,000 UNIT/0.5 ML SYRINGE SQ SCH ×2 (07:52→20:24)
[2021-03-05] MEDS: VITAMIN A 10,000 UNIT (3000 MCG) CAPSULE PO SCH ×2 (07:52→19:02)
[2021-03-05] MEDS: hydrALAZINE HCL 50 MG TAB PO SCH ×3 (07:53→19:02)
[2021-03-05] MEDS: [UNRECOGNIZED DRUG - OTHER] PO SCH ×2 (07:53→19:02)
[2021-03-05] MEDS: PRAVASTATIN SODIUM 20 MG TAB PO SCH (07:53)
[2021-03-05] MEDS: VIT A,C & E-LUTEIN-MINERALS 1 EACH TAB PO SCH ×2 (07:53→19:02)
[2021-03-05] MEDS ORDERED: ONDANSETRON 4 MG/2 ML VIAL IVP PRN (10:29)
[2021-03-05] MEDS: ACETAMINOPHEN TAB 325 MG TAB PO PRN (11:27)
[2021-03-05] MEDS: BIFIDOBACTERIUM INFANTIS 4 MG PO SCH (14:38)
[2021-03-05] MEDS: CALCIUM CARBONATE 500 MG CHEWABLE PO SCH (14:38)
--- NOTE | 2021-03-05 16:09 | P.PN ---
Subjective Progress Note Date: 03/05/21 This is an 85-year-old female patient of Dr. Beltran with past medical history of CAD, CVA, cerebral aneurysm status post coiling the past and vascular dementia, with prior DVT requiring Roosevelt filter, hypertension, hydrocephalus s/p SEISMIC PROSPECTING SUPERVISOR shunt 14 years ago. Patient lives at home with her . He states that her dementia and confusion have been getting worse. She is also incontinent of bladder and bowel. On Thursday evening, patient was on the porch while her made dinner. She wandered off the porch and when he came out of the house, she tried to take off and went to Dr. Tobias's home (neighbor) and he convinced her to go home. Patient was brought into the Emergency Center and found to be afebrile, BP 189/89, HR 88, PO 96% on RA. CBC WNL, Electrolytes WNL. BUN 29, creatinine 1.76. UA: Nitrite positive, Leuoesterase large, WBC >182, Clumps many. Covid PCR not detected. Ct of the brain found stable findings. Patient seen today in the ER waiting for a med-surg bed, started on Ceftriaxone and urine culture in progress. 03/05 patient examined at bedside. Unable to provide much history but patient is noted to be mild nausea that her multiple episodes of vomiting this morning and has also been noted to hold her right lower quadrant of abdomen and suggestive of pain. No episodes of fever or chills noted. Vitals otherwise stable afebrile pulse 82 respiratory rate 16 blood pressure 137/79 oxygen saturation are 95% on room air. Repeat labs ordered urine culture suggestive of capsular pneumonia susceptible to all the antibiotics. Repeat labs ordered. Abdominal x-ray ordered to rule out obstruction. Renal ultrasound ordered to rule out pyelonephritis. REVIEW OF SYSTEMS Constitutional: No fever, no chills, no night sweats. No weight change. No weakness, fatigue or lethargy. No daytime sleepiness. EENT: No headache. No blurred vision or double vision, no loss of vision. No loss of Hearing, no ringing in the ears, no dizziness. No nasal drainage or congestion. No epistaxis. No sore throat. Lungs: No shortness of breath, cough, no sputum production. No wheezing. Cardiovascular: No chest pain, no lower extremity edema. No palpitations. No paroxysmal nocturnal dyspnea. No orthopnea. No lightheadedness or dizziness. No syncopal episodes. Abdominal: No abdominal pain. No nausea, vomiting. No diarrhea. No constipation. No bloody or tarry stools. No loss of appetite. Genitourinary: No dysuria, increased frequency, urgency. No urinary retention. Musculoskeletal: No myalgias. No muscle weakness, no gait dysfunction, no frequent falls. No back pain. No neck pain. Integumentary: No wounds, no lesions. No rash or pruritus. No unusual bruising. No change in hair or nails. Neurologic: No aphasia. No facial droop. Noted chronic worsening change in mentation. No head injury. No headache. No paralysis. No paresthesia. Psychiatric: No depression. No anxiety. No mood swings. Endocrine: No abnormal blood sugars. No weight change. No excessive sweating or thirst. No cold intolerance. PHYSICAL EXAMINATION Gen: This is an 85-year-old female patient resting on the ER stretcher and appears to be in no acute distress. HEENT: Head is atraumatic, normocephalic. Pupils equal, round. Sclerae is anicteric. NECK: Supple. No JVD. No lymphadenopathy. No thyromegaly. LUNGS: Clear to auscultation. No wheezes or rhonchi. No intercostal retractions. HEART: Regular rate and rhythm. No murmur. ABDOMEN: Soft. Bowel sounds are present. No masses. Right lower quadrant tenderness EXTREMITIES: No pedal edema. No calf tenderness. NEUROLOGICAL: Patient is awake, alert. She is able to state the year and her location, short-term memory deficits noted. Cranial nerves 2 through 12 are gr ossly intact. ASSESSMENT AND PLAN 1. Acute UTI. Continue Ceftriaxone and monitor urine culture. 2. Acute abdominal pain likely secondary to cystitis rule out pyelonephritis renal ultrasound ordered abdominal x-ray ordered to rule out partial obstruction bowel sounds are present 3. History of CVA x8. 4. Vascular dementia, with worsening symptoms. Patient has scheduled appointment with Dr. Reid on Mar 11. 5. CAD, stable, no c/o CP. 6. History of aneurysm status post coiling Hx of hydrocephalus with SEISMIC PROSPECTING SUPERVISOR shunt 14 years ago. 7. Remote history of tobacco use and dependence. 8. HTN. Continue Amlodipine 10 mg daily, Toprol XL 12.5 mg at hs, clonidine 0.1 mg/24h patch daily, hydralazine 50 mg tid. 9. HLD. Continue pravastin 20 mg daily. 10. GERD and GI prophylaxis. Continue pepcid 20 mg at hs. 11. DVT prophylaxis. Heparin sq. 12. COVID-19 testing negative. Patient has been hospitalized during a pandemic. CODE STATUS: full code with no intubation. to bring in Living Will/DPOA papers. DISCHARGE PLAN TBD. Most likely return home as would like more info on adult daycare and not ready to look at long-term placement. Objective - Vital Signs Vital signs: Vital Signs Temp 98.4 F 03/05/21 13:05 Pulse 77 03/05/21 13:05 Resp 20 03/05/21 13:05 BP 137/79 03/05/21 13:05 Pulse Ox 95 03/05/21 13:05 Intake & Output 03/04/21 03/05/21 03/05/21 18:59 06:59 18:59 Intake Total 1630 Balance 1630 Intake: Intake, IV Titration 50 Amount cefTRIAXone 1 gm In 50 Sodium Chloride 0.9% 50 ml @ 100 mls/hr IVPB Q24HR [facility] Rx#:[id number] Oral 1580 Other: Voiding Method Toilet Toilet Diaper # Voids 4 2 # Bowel Movements 3 - Labs CBC & Chem 7: 03/03/21 13:16 03/03/21 13:16 Labs: Microbiology - Last 24 Hours (Table) 03/03/21 13:57 Urine Culture - Final Urine,Clean Catch Klebsiella pneumoniae
[2021-03-05] MEDS: DOCUSATE 100 MG CAP PO SCH (16:54)
[2021-03-05 17:28] LABS: Basophils % (A) 1 %; Eosinophils # (A) 0.1 k/uL (0-0.7); Eosinophils % (A) 1 %; HCT 42.5 % (34.0-46.0); HGB 14.3 gm/dL (11.4-16.0); Lymphocytes # (A) 0.8 k/uL (1.0-4.8); Lymphocytes % (A) 11 %; MCH 28.7 pg (25.0-35.0); MCHC 33.6 g/dL (31.0-37.0); MCV 85.5 fL (80.0-100.0); Mean Platelet Volume 8.8; Monocytes # (A) 0.6 k/uL (0-1.0); Monocytes % (A) 8 %; Neutrophils # (A) 5.6 k/uL (1.3-7.7); Neutrophils % (A) 77 %; Platelet Count 346 k/uL (150-450); RBC 4.97 m/uL (3.80-5.40); RDW 14.5 % (11.5-15.5); WBC 7.3 k/uL (3.8-10.6)
[2021-03-05 18:44] LABS: Albumin 4.3 g/dL (3.5-5.0); Calcium 10.4 mg/dL (8.4-10.2); Potassium 4.5 mmol/L (3.5-5.1); Total Bilirubin 0.4 mg/dL (0.2-1.3); Total Protein 7.8 g/dL (6.3-8.2)
[2021-03-05] MEDS: DONEPEZIL 10 MG TAB PO SCH (19:02)
[2021-03-05] MEDS: METOPROLOL SUCCINATE (ER) 25 MG TAB.ER.24H PO SCH (19:02)
[2021-03-05] MEDS: CHOLECALCIFEROL 25 MCG (1000 IU) TABLET PO SCH (19:02)
[2021-03-05] MEDS: FAMOTIDINE 20 MG TAB PO SCH (19:02)
[2021-03-05] MEDS: MELATONIN 5 MG TABLET PO SCH (19:02)
--- NOTE | 2021-03-05 19:09 | XR ---
EXAMINATION TYPE: XR abdomen 2V DATE OF EXAM: 03/05/2021 COMPARISON: 10/26/2020 HISTORY: Abdominal pain TECHNIQUE: 4 views FINDINGS: Bowel gas pattern is normal. There is no sign of intestinal obstruction or pneumoperitoneum . Fecal pattern is normal. There is no evidence of a mass. There is ventriculoperitoneal shunt cathet er noted. There is inferior vena cava filter. There are no calcifications over the kidneys. There are probably multiple calcified splenic granulomata. IMPRESSION: Nonacute abdomen. No adverse change.
--- NOTE | 2021-03-05 19:19 | US ---
EXAMINATION TYPE: US renals and bladder DATE OF EXAM: 03/05/2021 COMPARISON: CT 2018, US 2010 CLINICAL HISTORY: r/o kidney infection. Exam done portable EXAM MEASUREMENTS: Right Kidney: 10.4 x 4.5 x 4.1 cm Left Kidney: 4.6 x 3.8 cm, unable to obtain length measurement Right Kidney: 4.9 x 3.9 x 4.0cm cyst Left Kidney: visualized portions wnl, inferior pole obscured by overlying bowel gas Bladder: wnl Bilateral Jets seen: no IMPRESSION: No evidence of a bladder mass. 4 cm cyst on the right kidney. No evidence of solid renal mass or obst ruction. Left kidney not well seen.
[2021-03-06] MEDS: HEPARIN SODIUM,PORCINE/PF 5,000 UNIT/0.5 ML SYRINGE SQ SCH ×2 (08:42→21:05)
[2021-03-06] MEDS: VIT A,C & E-LUTEIN-MINERALS 1 EACH TAB PO SCH ×2 (08:42→20:08)
[2021-03-06] MEDS: VITAMIN A 10,000 UNIT (3000 MCG) CAPSULE PO SCH ×2 (08:42→20:07)
[2021-03-06] MEDS: hydrALAZINE HCL 50 MG TAB PO SCH ×3 (08:42→20:06)
[2021-03-06] MEDS: PRAVASTATIN SODIUM 20 MG TAB PO SCH (08:43)
[2021-03-06] MEDS: amLODIPine 10 MG TAB PO SCH (08:43)
[2021-03-06] MEDS: LOSARTAN 50 MG TAB PO SCH (08:43)
[2021-03-06] MEDS: [UNRECOGNIZED DRUG - OTHER] PO SCH ×2 (08:44→20:16)
[2021-03-06] MEDS: BIFIDOBACTERIUM INFANTIS 4 MG PO SCH (11:18)
[2021-03-06] MEDS: ACETAMINOPHEN TAB 325 MG TAB PO PRN (12:05)
--- NOTE | 2021-03-06 13:24 | P.PN ---
Subjective Progress Note Date: 03/06/21 This is an 85-year-old female patient of Dr. Beltran with past medical history of CAD, CVA, cerebral aneurysm status post coiling the past and vascular dementia, with prior DVT requiring Roosevelt filter, hypertension, hydrocephalus s/p UPHOLSTERY HANDLER shunt 14 years ago. Patient lives at home with her . He states that her dementia and confusion have been getting worse. She is also incontinent of bladder and bowel. On Thursday evening, patient was on the porch while her made dinner. She wandered off the porch and when he came out of the house, she tried to take off and went to Dr. Tobias's home (neighbor) and he convinced her to go home. Patient was brought into the Emergency Center and found to be afebrile, BP 189/89, HR 88, PO 96% on RA. CBC WNL, Electrolytes WNL. BUN 29, creatinine 1.76. UA: Nitrite positive, Leuoesterase large, WBC >182, Clumps many. Covid PCR not detected. Ct of the brain found stable findings. Patient seen today in the ER waiting for a med-surg bed, started on Ceftriaxone and urine culture in progress. 03/05 patient examined at bedside. Unable to provide much history but patient is noted to be mild nausea that her multiple episodes of vomiting this morning and has also been noted to hold her right lower quadrant of abdomen and suggestive of pain. No episodes of fever or chills noted. Vitals otherwise stable afebrile pulse 82 respiratory rate 16 blood pressure 137/79 oxygen saturation are 95% on room air. Repeat labs ordered urine culture suggestive of capsular pneumonia susceptible to all the antibiotics. Repeat labs ordered. Abdominal x-ray ordered to rule out obstruction. Renal ultrasound ordered to rule out pyelonephritis. 03/06 patient examined at bedside. Patient has significant pain involving the right upper quadrant of the abdomen and the right lower quadrant.. Nausea is improved. Patient denies any diarrhea or constipation. She had last bowel movement yesterday which was soft no hard stools noted. Vitals reviewed patient 's afebrile pulse 72 respiratory rate 18 blood pressure 1:30/70 oxygen saturation 97% on room air. Patient is 134 potassium 4.5, BNP) 1.04 glucose 150 urine culture showed Pneumonia Which Is Pansensitive to Antibiotics. Abdominal X-Rays Negative for Obstruction Nonacute Abdomen. Renal Ultrasound Is Negative for hydronephrosis or pyelonephritis. 4 cm cyst on the right kidney noted on adrenal mass or obstruction noted left kidney was not visualized well. Due to patient's ongoing pain consult for cholecystitis versus cholelithiasis appendicitis could not be ruled out.. Abdominal ultrasound ordered. REVIEW OF SYSTEMS Constitutional: No fever, no chills, no night sweats. No weight change. No weakness, fatigue or lethargy. No daytime sleepiness. Patient is teary EENT: No headache. No blurred vision or double vision, no loss of vision. No loss of Hearing, no ringing in the ears, no dizziness. No nasal drainage or congestion. No epistaxis. No sore throat. Lungs: No shortness of breath, cough, no sputum production. No wheezing. Cardiovascular: No chest pain, no lower extremity edema. No palpitations. No paroxysmal nocturnal dyspnea. No orthopnea. No lightheadedness or dizziness. No syncopal episodes. Abdominal: Positive for abdominal pain nausea vomiting has improved No diarrhea. No constipation. No bloody or tarry stools. No loss of appetite. Genitourinary: No dysuria, increased frequency, urgency. No urinary retention. Musculoskeletal: No myalgias. No muscle weakness, no gait dysfunction, no frequent falls. No back pain. No neck pain. Integumentary: No wounds, no lesions. No rash or pruritus. No unusual bruising. No change in hair or nails. Neurologic: No aphasia. No facial droop. Noted chronic worsening change in mentation. No head injury. No headache. No paralysis. No paresthesia. Psychiatric: No depression. No anxiety. No mood swings. Clearly Endocrine: No abnormal blood sugars. No weight change. No excessive sweating or thirst. No cold intolerance. PHYSICAL EXAMINATION Gen: This is an 85-year-old female patient resting on the ER stretcher and appears to be in no acute distress. HEENT: Head is atraumatic, normocephalic. Pupils equal, round. Sclerae is anicteric. NECK: Supple. No JVD. No lymphadenopathy. No thyromegaly. LUNGS: Clear to auscultation. No wheezes or rhonchi. No intercostal retractions. HEART: Regular rate and rhythm. No murmur. ABDOMEN: Soft. Bowel sounds are present. No masses. Rebound tenderness involving the right upper quadrant and right lower quadrant. Bowel sounds are present. EXTREMITIES: No pedal edema. No calf tenderness. NEUROLOGICAL: Patient is awake, alert. She is able to state the year and her location, short-term memory deficits noted. Cranial nerves 2 through 12 are grossly intact. ASSESSMENT AND PLAN 1. Acute UTI. Continue Ceftriaxone and monitor urine culture. 2. Acute abdominal pain rule out cholecystitis versus cholelithiasis renal ultrasound negative for bilateral nephritis and renal stones abdominal x-ray negative for obstruction. Abdominal ultrasound ordered 3. History of CVA x8. 4. Vascular dementia, with worsening symptoms. Patient has scheduled appointment with Dr. Reid on Mar 11. 5. CAD, stable, no c/o CP. 6. History of aneurysm status post coiling Hx of hydrocephalus with UPHOLSTERY HANDLER shunt 14 years ago. 7. Remote history of tobacco use and dependence. 8. HTN. Continue Amlodipine 10 mg daily, Toprol XL 12.5 mg at hs, clonidine 0.1 mg/24h patch daily, hydralazine 50 mg tid. Losartan 50 mg by mouth daily blood pressure elevated. 9. HLD. Continue pravastin 20 mg daily. 10. GERD and GI prophylaxis. Continue pepcid 20 mg at hs. 11. DVT prophylaxis. Heparin sq. 12. COVID-19 testing negative. Patient has been hospitalized during a pandemic. CODE STATUS: full code with no intubation. to bring in Living Will/DPOA papers. DISCHARGE PLAN TBD. Most likely return home tomorrow as would like more info on adult daycare and not ready to look at long-term placement. Objective - Vital Signs Vital signs: Vital Signs Temp 98.2 F 03/06/21 08:00 Pulse 72 03/06/21 08:00 Resp 18 03/06/21 08:00 BP 113/70 03/06/21 08:00 Pulse Ox 97 03/06/21 08:00 Intake & Output 03/05/21 03/06/21 03/06/21 18:59 06:59 18:59 Other: Voiding Method Diaper Diaper Diaper # Voids 1 1 # Bowel Movements 1 - Labs CBC & Chem 7: 03/05/21 16:56 03/05/21 18:25 Labs: Abnormal Lab Results - Last 24 Hours (Table) 03/05/21 03/05/21 Range/Units 16:56 18:25 Lymphocytes # 0.8 L (1.0-4.8) k/uL Sodium 134 L (137-145) mmol/L BUN 28 H (7-17) mg/dL Glucose 150 H (74-99) mg/dL Calcium 10.4 H (8.4-10.2) mg/dL Microbiology - Last 24 Hours (Table) 03/03/21 13:57 Urine Culture - Final Urine,Clean Catch Klebsiella pneumoniae
[2021-03-06] MEDS: CALCIUM CARBONATE 500 MG CHEWABLE PO SCH (15:46)
[2021-03-06] MEDS: DOCUSATE 100 MG CAP PO SCH (15:47)
[2021-03-06] MEDS: MELATONIN 5 MG TABLET PO SCH (20:02)
[2021-03-06] MEDS: FAMOTIDINE 20 MG TAB PO SCH (20:02)
[2021-03-06] MEDS: CHOLECALCIFEROL 25 MCG (1000 IU) TABLET PO SCH (20:04)
[2021-03-06] MEDS: METOPROLOL SUCCINATE (ER) 25 MG TAB.ER.24H PO SCH (20:05)
[2021-03-06] MEDS: DONEPEZIL 10 MG TAB PO SCH (20:07)
[2021-03-07] MEDS: [UNRECOGNIZED DRUG - OTHER] PO SCH (08:10)
[2021-03-07] MEDS: HEPARIN SODIUM,PORCINE/PF 5,000 UNIT/0.5 ML SYRINGE SQ SCH (08:11)
[2021-03-07] MEDS: hydrALAZINE HCL 50 MG TAB PO SCH (08:11)
[2021-03-07] MEDS: amLODIPine 10 MG TAB PO SCH (08:11)
[2021-03-07] MEDS: LOSARTAN 50 MG TAB PO SCH (08:11)
[2021-03-07] MEDS: VIT A,C & E-LUTEIN-MINERALS 1 EACH TAB PO SCH (08:12)
[2021-03-07] MEDS: PRAVASTATIN SODIUM 20 MG TAB PO SCH (08:12)
[2021-03-07] MEDS: VITAMIN A 10,000 UNIT (3000 MCG) CAPSULE PO SCH (08:12)
[2021-03-07] MEDS: BIFIDOBACTERIUM INFANTIS 4 MG PO SCH (08:15)
[2021-03-07 09:20] VITALS: BP 150/79; PULSE 63; RESP 18; TEMP 97.9
--- NOTE | 2021-03-07 09:43 | US ---
EXAMINATION TYPE: US abdomen limited DATE OF EXAM: 03/07/2021 COMPARISON: CT dated 04/05/2019 CLINICAL HISTORY: ruq pain. Intermittent epigastric pain; patient has dementia EXAM MEASUREMENTS: Liver Length: 12.9 cm Gallbladder Wall: 0.1 cm CBD: 0.5 cm Right Kidney: 9.6 x 4.3 x5.0 cm Pancreas: wnl in its visualized portions Liver: Liver shows a coarse echotexture, there are scattered echogenic foci consistent with granulom a, there is no evident mass or dilated intra or extrahepatic biliary duct. Gallbladder: wnl Evidence for sonographic Boyd's sign: no CBD: wnl Right Kidney: parapelvic cyst = 4.6 x 4.8 x 4.4cm. Appear simple IMPRESSION: Correlate for hepatic steatosis, there is old granulomatous disease
--- NOTE | 2021-03-07 11:09 | P.DS ---
Providers Date of admission: 03/03/21 14:54 Expected date of discharge: 03/07/21 Attending physician: Tara Damon MD Primary care physician: Unruly Beltran [facility] Course: This is an 85-year-old female patient of Dr. Beltran with past medical history of CAD, CVA, cerebral aneurysm status post coiling the past and vascular dementia, with prior DVT requiring [place] filter, hypertension, hydrocephalus s/p GRAIN SHOVELER shunt 14 years ago. Patient lives at home with her . He states that her dementia and confusion have been getting worse. She is also incontinent of bladder and bowel. On Thursday evening, patient was on the porch while her made dinner. She wandered off the porch and when he came out of the house, she tried to take off and went to Dr. Tobias's home (neighbor) and he convinced her to go home. Patient was brought into the Emergency Center and found to be afebrile, BP 189/89, HR 88, PO 96% on RA. CBC WNL, Electrolytes WNL. BUN 29, creatinine 1.76. UA: Nitrite positive, Leuoesterase large, WBC >182, Clumps many. Covid PCR not detected. Ct of the brain found stable findings. Patient seen today in the ER waiting for a med-surg bed, started on Ceftriaxone and urine culture in progress. 03/05 patient examined at bedside. Unable to provide much history but patient is noted to be mild nausea that her multiple episodes of vomiting this morning and has also been noted to hold her right lower quadrant of abdomen and suggestive of pain. No episodes of fever or chills noted. Vitals otherwise stable afebrile pulse 82 respiratory rate 16 blood pressure 137/79 oxygen saturation are 95% on room air. Repeat labs ordered urine culture suggestive of capsular pneumonia susceptible to all the antibiotics. Repeat labs ordered. Abdominal x-ray ordered to rule out obstruction. Renal ultrasound ordered to rule out pyelonephritis. 03/06 patient examined at bedside. Patient has significant pain involving the right upper quadrant of the abdomen and the right lower quadrant.. Nausea is improved. Patient denies any diarrhea or constipation. She had last bowel movement yesterday which was soft no hard stools noted. Vitals reviewed patient's afebrile pulse 72 respiratory rate 18 blood pressure 1:30/70 oxygen saturation 97% on room air. Patient is 134 potassium 4.5, BNP) 1.04 glucose 150 urine culture showed Pneumonia Which Is Pansensitive to Antibiotics. Abdominal X-Rays Negative for Obstruction Nonacute Abdomen. Renal Ultrasound Is Negative for hydronephrosis or pyelonephritis. 4 cm cyst on the right kidney noted on adrenal mass or obstruction noted left kidney was not visualized well. Due to patient's ongoing pain consult for cholecystitis versus cholelithiasis appendicitis could not be ruled out.. Abdominal ultrasound ordered. 03/07: ASSESSMENT AND PLAN 1. Acute UTI. Continue Ceftriaxone and monitor urine culture. 2. Acute abdominal pain rule out cholecystitis versus cholelithiasis renal ultrasound negative for bilateral nephritis and renal stones abdominal x-ray negative for obstruction. Abdominal ultrasound ordered 3. History of CVA x8. 4. Vascular dementia, with worsening symptoms. Patient has scheduled appointment with Dr. Reid on Mar 11. 5. CAD, stable, no c/o CP. 6. History of aneurysm status post coiling Hx of hydrocephalus with GRAIN SHOVELER shunt 14 years ago. 7. Remote history of tobacco use and dependence. 8. HTN. Continue Amlodipine 10 mg daily, Toprol XL 12.5 mg at hs, clonidine 0.1 mg/24h patch daily, hydralazine 50 mg tid. Losartan 50 mg by mouth daily blood pressure elevated. 9. HLD. Continue pravastin 20 mg daily. 10. GERD and GI prophylaxis. Continue pepcid 20 mg at hs. 11. DVT prophylaxis. Heparin sq. 12. COVID-19 testing negative. Patient has been hospitalized during a pandemic. CODE STATUS: full code with no intubation. to bring in Living Will/DPOA papers. DISCHARGE PLAN TBD. Most likely return home tomorrow as would like more info on adult daycare and not ready to look at long-term placement. Patient Condition at Discharge: Stable Plan - Discharge Summary Discharge Rx Participant: No New Discharge Prescriptions: New Losartan [Cozaar] 50 mg PO DAILY #30 tab Cephalexin [Keflex] 250 mg PO Q8HR #9 capsule Continue Famotidine [Pepcid] 20 mg PO HS@1900 Cranberry Conc/C/Bacill Coag [Cranberry Tablet] 1 tab PO BID@0700,1900 Melatonin 10 mg PO HS@1900 Docusate Sodium [Stool Softener] 300 mg PO DAILY@1500 Vitamin A 8,000 unit PO BID@0700,1900 Pravastatin Sodium [Pravachol] 20 mg PO DAILY@0700 hydrALAZINE HCL [Apresoline] 50 mg PO TID@0700,1500,1900 amLODIPine [Norvasc] 10 mg PO DAILY@0700 cloNIDine 0.1 MG/24HR PATCH [Catapres-TTS] 1 patch TRANSDERM SA Bifidobacterium Infantis [Align] 4 mg PO DAILY@1500 Calcium Carbonate [Calcium] 600 mg PO DAILY@1500 Metoprolol Succinate (ER) [Toprol XL] 12.5 mg PO HS@1900 Vit A/Vit C/Vit E/Zinc/Copper [ICAPS SOFTGEL] 1 cap PO BID@0700,1900 Cholecalciferol [Vitamin D3 (25 Mcg = 1000 Iu)] 50 mcg PO DAILY@1900 Donepezil HCl [Aricept] 10 mg PO HS@1900 Discharge Medication List Cranberry Conc/C/Bacill Coag [Cranberry Tablet] 1 tab PO BID@0700,1900 09/17/13 [History] Docusate Sodium [Stool Softener] 300 mg PO DAILY@1500 09/17/13 [History] Famotidine [Pepcid] 20 mg PO HS@189909/17/13 [History] Melatonin 10 mg PO HS@189909/17/13 [History] Pravastatin Sodium [Pravachol] 20 mg PO DAILY@0700 09/17/13 [History] Vitamin A 8,000 unit PO BID@0700,1900 09/17/13 [History] amLODIPine [Norvasc] 10 mg PO DAILY@0700 09/17/13 [History] hydrALAZINE HCL [Apresoline] 50 mg PO TID@0700,1500,1900 09/17/13 [History] cloNIDine 0.1 MG/24HR PATCH [Catapres-TTS] 1 patch TRANSDERM SA 12/12/16 [History] Bifidobacterium Infantis [Align] 4 mg PO DAILY@1500 04/05/19 [History] Calcium Carbonate [Calcium] 600 mg PO DAILY@1500 04/05/19 [History] Metoprolol Succinate (ER) [Toprol XL] 12.5 mg PO HS@19004/05/19 [History] Vit A/Vit C/Vit E/Zinc/Copper [ICAPS SOFTGEL] 1 cap PO BID@0700,1900 04/05/19 [History] Cholecalciferol [Vitamin D3 (25 Mcg = 1000 Iu)] 50 mcg PO DAILY@1900 10/26/20 [History] Donepezil HCl [Aricept] 10 mg PO HS@1900 03/03/21 [History] Losartan [Cozaar] 50 mg PO DAILY #30 tab 03/06/21 [Rx] Cephalexin [Keflex] 250 mg PO Q8HR #9 capsule 03/07/21 [Rx] Follow up Appointment(s)/Referral(s): [facility] [NON-STAFF] - As Needed Unruly Beltran MD [Primary Care Provider] - 1-2 days [facility] Vis[facility] Nurse, [NON-STAFF] - Activity/Diet/Wound Care/Special Instructions: [facility] [phone] [email or web address] Discharge Disposition: HOME WITH HOME HEALTH SERVICES
[2021-03-09] MEDS ORDERED: cloNIDine 0.1 MG/24HR PATCH TRANSDERM SCH (09:00)
== END 2021-03-07 12:42 | disposition home health service (06) | DRG 690 ==
LOC: EC 12:27 → 5NMEDONC 14:54 → 1SOBS 03-04 10:44
PROVIDERS: ADMIT Internal Medicine; ATTEND Internal Medicine
DX: N30.90 Cystitis, unspecified without hematuria (principal); G91.9 Hydrocephalus, unspecified; R41.82 Altered mental status, unspecified; E27.9 Disorder of adrenal gland, unspecified; E78.5 Hyperlipidemia, unspecified; F01.50 Vascular dementia, unspecified severity, without behavioral disturbance, psychotic disturbance, mood disturbance, and anxiety; I10 Essential (primary) hypertension; I25.10 Atherosclerotic heart disease of native coronary artery without angina pectoris; N28.1 Cyst of kidney, acquired; Z20.822 Contact with and (suspected) exposure to COVID-19; R15.9 Full incontinence of feces; K81.9 Cholecystitis, unspecified; K21.9 Gastro-esophageal reflux disease without esophagitis; Z79.899 Other long term (current) drug therapy; Z82.3 Family history of stroke; Z86.718 Personal history of other venous thrombosis and embolism; Z86.73 Personal history of transient ischemic attack (TIA), and cerebral infarction without residual deficits; Z86.79 Personal history of other diseases of the circulatory system; Z87.891 Personal history of nicotine dependence; Z90.710 Acquired absence of both cervix and uterus; Z91.83 Wandering in diseases classified elsewhere; Z98.2 Presence of cerebrospinal fluid drainage device; Z91.040 Latex allergy status; Z88.2 Allergy status to sulfonamides; Z88.8 Allergy status to other drugs, medicaments and biological substances
CPT/HCPCS: 36415; 70450; 74019; 76705; 76770; 80048; 80053; 81001; 85025; 87077; 87086; 87186; 87635; 99285

== ENCOUNTER 2021-03-20 07:41 | Inpatient (IN) | payer MEDICARE, BC ==
[2021-03-20 08:41] LABS: Basophils # (A) 0.1 k/uL (0-0.2); Basophils % (A) 1 %; Eosinophils # (A) 0.1 k/uL (0-0.7); Eosinophils % (A) 1 %; HCT 40.3 % (34.0-46.0); HGB 12.9 gm/dL (11.4-16.0); Lymphocytes % (A) 14 %; MCH 28.8 pg (25.0-35.0); MCHC 32.1 g/dL (31.0-37.0); MCV 89.9 fL (80.0-100.0); Mean Platelet Volume 7.3; Monocytes # (A) 0.4 k/uL (0-1.0); Monocytes % (A) 6 %; Neutrophils # (A) 5.6 k/uL (1.3-7.7); Neutrophils % (A) 76 %; Platelet Count 333 k/uL (150-450); RBC 4.49 m/uL (3.80-5.40); RDW 14.1 % (11.5-15.5); WBC 7.4 k/uL (3.8-10.6)
--- NOTE | 2021-03-20 08:47 | ED ---
General Adult HPI - General Chief complaint: Altered Mental Status Stated complaint: confusion Time Seen by Provider: 03/20/21 08:00 Source: patient, family Mode of arrival: ambulatory Limitations: no limitations - History of Present Illness Initial comments: Dictation was produced using [employer] dictation software. please excuse any grammatical, word or spelling errors. Chief Complaint: 85-year-old female brought in by law enforcement for altered mental status History of Present Illness: 85-year-old female she has history of dementia and is a poor historian. History present illness obtained from was also limited historian. Patient allegedly has a history of dementia. She was able to escape the house. She is found on the road by law enforcement. Law enforcement contacted said that they found his . Patient has history of dementia. She is confused. Patient reports that she is upset her because her told her she is having a baby. She has history of hysterectomy and she is 85. states that they have a follow-up appointment for evaluation of her mentation in the upcoming weeks. The ROS documented in this emergency department record has been reviewed and confirmed by me. Those systems with pertinent positive or negative responses have been documented in the HPI. All other systems are other negative and/or noncontributory. PHYSICAL EXAM: General Impression: Alert and oriented x1, not in acute distress HEENT: Normocephalic atraumatic, extra-ocular movements intact, pupils equal and reactive to light bilaterally, mucous membranes moist. Cardiovascular: Heart regular rate and rhythm Chest: Able to complete full sentences, no retractions, no tachypnea Abdomen: abdomen soft, non-tender, non-distended, no organomegaly Musculoskeletal: Pulses present and equal in all extremities, no peripheral edema Motor: no focal deficits noted Neurological: CN II-XII grossly intact, no focal motor or sensory deficits noted Skin: Intact with no visualized rashes Psych: Normal affect and mood ED course: 85-year-old female presents emergency department for altered mental status. Vital signs upon arrival are within acceptable limits. Physical examination is benign. Patient is confused however reports that patient has these episodes. She does have a history of dementia Laboratory evaluation obtained. CBC, metabolic panel is unremarkable. Pending urine studies. The rn case mgr was in the emergency room. She arranged for skilled nursing stay evaluate the patient. Patient is [facility] over the refused. Patient evaluated by [facility] for placement. being reviewed for authorization. Patient will be admitted to observation pending [employer] authorization. EKG interpretation: Ventricular rate 61, normal sinus rhythm, [place] interval 140, QRS 84, QTC 418. No [place] prolongation, no QTC prolongation, no ST or T-wave changes noted. Overall, this EKG is unremarkable - Related Data Home Medications Medication Instructions Recorded Confirmed Cranberry Conc/C/Bacill Coag 1 tab PO BID@0700,1900 09/17/13 03/20/21 [Cranberry Tablet] Docusate Sodium [Stool Softener] 300 mg PO DAILY@1500 09/17/13 03/20/21 Famotidine [Pepcid] 20 mg PO HS@19009/17/13 03/20/21 Melatonin 10 mg PO HS@19009/17/13 03/20/21 Pravastatin Sodium [Pravachol] 20 mg PO DAILY@0700 09/17/13 03/20/21 Vitamin A 8,000 unit PO BID@0700,19009/17/13 03/20/21 amLODIPine [Norvasc] 10 mg PO DAILY@0700 09/17/13 03/20/21 hydrALAZINE HCL [Apresoline] 50 mg PO TID@0700,1500,1900 09/17/13 03/20/21 cloNIDine 0.1 MG/24HR PATCH 1 patch TRANSDERM SA 12/12/16 03/20/21 [Catapres-TTS] Bifidobacterium Infantis [Align] 4 mg PO DAILY@1500 04/05/19 03/20/21 Calcium Carbonate [Calcium] 600 mg PO DAILY@1500 04/05/19 03/20/21 Metoprolol Succinate (ER) [Toprol 12.5 mg PO HS@1900 04/05/19 03/20/21 XL] Vit A/Vit C/Vit E/Zinc/Copper 1 cap PO BID@0700,1900 04/05/19 03/20/21 [ICAPS SOFTGEL] Cholecalciferol [Vitamin D3 (25 50 mcg PO DAILY@1900 10/26/20 03/20/21 Mcg = 1000 Iu)] Donepezil HCl [Aricept] 10 mg PO HS@1900 03/03/21 03/20/21 Previous Rx's Medication Instructions Recorded Losartan [Cozaar] 50 mg PO DAILY #30 tab 03/06/21 Allergies Allergy/AdvReac Type Severity Reaction Status Date / Time aloe vera Allergy Unknown Verified 03/20/21 09:48 amlodipine besylate Allergy Unknown Verified 03/20/21 09:48 [From Norvasc] cyclobenzaprine Allergy Unknown Verified 03/20/21 09:48 [Cyclobenzaprine] diclofenac Allergy Unknown Verified 03/20/21 09:48 hydrochlorothiazide Allergy Unknown Verified 03/20/21 09:48 [From Zestoretic] latex Allergy Rash/Hives Verified 03/20/21 09:48 levofloxacin [From Levaquin] Allergy Unknown Verified 03/20/21 09:48 lisinopril Allergy Unknown Verified 03/20/21 09:48 mesalamine [From Asacol] Allergy Unknown Verified 03/20/21 09:48 sulfamethoxazole Allergy Unknown Verified 03/20/21 09:48 [From Bactrim] trimethoprim [From Bactrim] Allergy Unknown Verified 03/20/21 09:48 Review of Systems ROS Statement: Those systems with pertinent positive or pertinent negative responses have been documented in the HPI. ROS Other: All systems not noted in ROS Statement are negative. Past Medical History Past Medical History: Coronary Artery Disease (CAD), CVA/TIA, Dementia, Deep Vein Thrombosis (DVT), GERD/Reflux, Hypertension Additional Past Medical History / Comment(s): constipation, brain aneurysm, urinary tract infections History of Any Multi-Drug Resistant Organisms: None Reported Additional Past Surgical History / Comment(s): brain, artem filter, hysterectomy Past Anesthesia/Blood Transfusion Reactions: No Reported Reaction Past Psychological History: No Psychological Hx Reported Smoking Status: Never smoker Past Alcohol Use History: None Reported Past Drug Use History: None Reported General Exam Limitations: no limitations Course Vital Signs 03/20/21 07:49 Temperature 97.9 F Pulse Rate 64 Respiratory 18 Rate Blood Pressure 196/93 O2 Sat by Pulse 98 Oximetry Medical Decision Making - Lab Data Result diagrams: 03/20/21 08:29 03/20/21 08:29 Lab Results 03/20/21 03/20/21 Range/Units 08:29 08:29 WBC 7.4 (3.8-10.6) k/uL RBC 4.49 (3.80-5.40) m/uL Hgb 12.9 (11.4-16.0) gm/dL Hct 40.3 (34.0-46.0) % MCV 89.9 (80.0-100.0) fL MCH 28.8 (25.0-35.0) pg MCHC 32.1 (31.0-37.0) g/dL RDW 14.1 (11.5-15.5) % Plt Count 333 (150-450) k/uL MPV 7.3 Neutrophils % 76 % Lymphocytes % 14 % Monocytes % 6 % Eosinophils % 1 % Basophils % 1 % Neutrophils # 5.6 (1.3-7.7) k/uL Lymphocytes # 1.0 (1.0-4.8) k/uL Monocytes # 0.4 (0-1.0) k/uL Eosinophils # 0.1 (0-0.7) k/uL Basophils # 0.1 (0-0.2) k/uL Sodium 139 (137-145) mmol/L Potassium 4.0 (3.5-5.1) mmol/L Chloride 104 (98-107) mmol/L Carbon Dioxide 26 (22-30) mmol/L Anion Gap 9 mmol/L BUN 24 H (7-17) mg/dL Creatinine 0.82 (0.52-1.04) mg/dL Est GFR (CKD-EPI)AfAm 77 (>60 ml/min/1.73 sqM) Est GFR (CKD-EPI)NonAf 66 (>60 ml/min/1.73 sqM) Glucose 90 (74-99) mg/dL Calcium 10.2 (8.4-10.2) mg/dL Disposition Clinical Impression: Debility, Dementia Disposition: ADMITTED IP TO THIS [facility] Condition: Fair Referrals: Unruly Beltran MD [Primary Care Provider] - 1-2 days
[2021-03-20 08:55] LABS: Calcium 10.2 mg/dL (8.4-10.2)
--- NOTE | 2021-03-20 09:15 | CT ---
EXAMINATION TYPE: CT brain wo con DATE OF EXAM: 03/20/2021 HISTORY: confusion CT DLP: 1084.4 mGycm. Automated Exposure Control for Dose Reduction was Utilized. TECHNIQUE: CT scan of the head is performed without contrast. COMPARISON: CT brain March 03, 2021. FINDINGS: Stable right frontal CELLOPHANE WORKER shunt catheter terminating near midline of the ventricles. There i s no acute intracranial hemorrhage or midline shift identified. There is stable diffuse ventricular a nd sulcal prominence with increased ventricular prominence relative to degree of sulcal effacement. V entricular size unchanged from prior. There is marked low-attenuation in the deep and periventricular white matter consistent with chronic small vessel ischemic change. Old infarct left frontal lobe and right frontoparietal junction are redemonstrated. Aneurysm clip left suprasellar level causing strea k artifact is again seen. Patchy cerumen deep right external auditory canal redemonstrated. More dens e cerumen on the left suspected is stable, correlate clinically. The globes are intact and the visua lized sinuses are clear. Nasal septum slightly deviated to left of midline. IMPRESSION: No acute intracranial hemorrhage or midline shift. There is mild to moderate diffuse ce rebral atrophy with mild to moderate stable hydrocephalus and advanced chronic small vessel ischemic changes with old infarcts are all redemonstrated. No significant change from recent CT.
[2021-03-20] MEDS ORDERED: NALOXONE 0.4 MG/ML 1 ML VIAL IV PRN (14:45)
[2021-03-20 16:14] LABS: Appearance,Urine Clear (Clear); Bilirubin,Urine Negative (Negative); Blood,Urine Negative (Negative); Color,Urine Light Yellow; Glucose,Urine (UA) Negative (Negative); Ketones,Urine Negative (Negative); Leukocyte Esterase,Urine Negative (Negative); Nitrite,Urine Negative (Negative); Protein,Urine Negative (Negative); Specific Gravity,Urine 1.008 (1.001-1.035); Urobilinogen,Urine <2.0 mg/dL (<2.0)
[2021-03-20] MEDS: VIT A,C & E-LUTEIN-MINERALS 1 EACH TAB PO SCH ×2 (16:43→21:01)
[2021-03-20] MEDS: CALCIUM CARBONATE 500 MG CHEWABLE PO SCH (16:43)
[2021-03-20] MEDS: LACTOBACILLUS ACIDOPH & BULGAR 1 EACH PACKET PO SCH (16:44)
[2021-03-20] MEDS: hydrALAZINE HCL 50 MG TAB PO SCH ×2 (16:44→21:01)
[2021-03-20] MEDS: DOCUSATE 100 MG CAP PO SCH (16:44)
--- NOTE | 2021-03-20 16:45 | P.HPIM ---
History of Present Illness H&P Date: 03/20/21 HISTORY OF PRESENT ILLNESS This is an 85-year-old female patient of Dr. Beltran with past medical history of CAD, CVA, cerebral aneurysm status post coiling the past and vascular dementia, with prior DVT requiring [place] filter, hypertension, hydrocephalus s/p STITCHER FEEDER shunt 14 years ago. Patient lives at home with her . He states that her dementia and confusion have been getting worse. In the last visit, she wandered off the porch and when he came out of the house, she tried to take off and went to Dr. Tobias's home (neighbor) and he convinced her to go home. Patient was brought in by the as patient has progressive dementia. Apparently patient wandered off today and was found few miles away from his house by Law enforcement. Has been could not convince her life to go home. He had to call her daughter and finally brought her to the emergency room to make sure she does not have underlying urinary tract infection. In the last visit on 03/04 patient stated the hospital until 03/07. Renal ultrasound, abdominal ultrasound was ordered as patient complained of abdominal pain which came unremarkable. Evaluation in the ER, patient's blood pressure is 196/93, afebrile pulse 64 respiratory rate 18. Labs are reviewed patient is a WBC of 7.4 hemoglobin 12.9 hematocrit 40.3 platelets 333 sodium 139 BUN 24 creatinine 0.8 calcium 10.2 Urinalysis was negative for infection. Patient is admitted for placement. PTOT consult placed. passementerie worker and director case consult placed REVIEW OF SYSTEMS Constitutional: No fever, no chills, no night sweats. No weight change. No weakness, fatigue or lethargy. No daytime sleepiness. EENT: No headache. No blurred vision or double vision, no loss of vision. No loss of Hearing, no ringing in the ears, no dizziness. No nasal drainage or congestion. No epistaxis. No sore throat. Lungs: No shortness of breath, cough, no sputum production. No wheezing. Cardiovascular: No chest pain, no lower extremity edema. No palpitations. No paroxysmal nocturnal dyspnea. No orthopnea. No lightheadedness or dizziness. No syncopal episodes. Abdominal: No abdominal pain. No nausea, vomiting. No diarrhea. No constipation. No bloody or tarry stools. No loss of appetite. Genitourinary: No dysuria, increased frequency, urgency. No urinary retention. Musculoskeletal: No myalgias. No muscle weakness, no gait dysfunction, no frequent falls. No back pain. No neck pain. Integumentary: No wounds, no lesions. No rash or pruritus. No unusual bruising. No change in hair or nails. Neurologic: No aphasia. No facial droop. Noted chronic worsening change in mentation. No head injury. No headache. No paralysis. No paresthesia. Psychiatric: No depression. No anxiety. No mood swings. Endocrine: No abnormal blood sugars. No weight change. No excessive sweating or thirst. No cold intolerance. SOCIAL HISTORY Patient was a smoker of 1/2 -1 PPD for 40+years and quit 4 years ago. No marijuana, alcohol or illicit drug use. She lives at home with her and he is her primary healthcare account manager. FAMILY HISTORY Father in his 60s from [place], Mother dies at age 60 from some type of cancer- does not remember. One brother from a stroke and one brother is alive at age 86 with history of valve replacement. She has one sister that dies at age 88 from old age. She has 3 children. PHYSICAL EXAMINATION Gen: This is an 85-year-old female patient resting on the ER stretcher and appears to be in no acute distress. HEENT: Head is atraumatic, normocephalic. Pupils equal, round. Sclerae is a nicteric. NECK: Supple. No JVD. No lymphadenopathy. No thyromegaly. LUNGS: Clear to auscultation. No wheezes or rhonchi. No intercostal retractions. HEART: Regular rate and rhythm. No murmur. ABDOMEN: Soft. Bowel sounds are present. No masses. No tenderness. EXTREMITIES: No pedal edema. No calf tenderness. NEUROLOGICAL: Patient is awake, alert. She is able to state the year and her location, short-term memory deficits noted. Cranial nerves 2 through 12 are grossly intact. Continues to repeat the questions ASSESSMENT AND PLAN 1. Acute on chronic cognitive deficit and admitted to progressive dementia. Patient saw Dr. Reid as outpatient and is in process of treatment. CT head suggestive of mild to moderate diffuse cerebral atrophy with mild to moderate stable hydrocephalus live as chronic small vessel ischemic changes with old infarcts redemonstrated. Due to multiple episodes of wandering away, is unable to take care of the patient. . Family is unable to take care of the patient. She would benefit from getting placed in a dementia unit. passementerie worker consult. Continue Aricept 10 mg by mouth daily 2. History of CVA x8. 3. Vascular dementia, with worsening symptoms. 4. CAD, stable, no c/o CP. 5. Hx of hydrocephalus with STITCHER FEEDER shunt 14 years ago. 6. Remote history of tobacco use and dependence. 7. HTN. Continue Amlodipine 10 mg daily, Toprol XL 12.5 mg at hs, clonidine 0.1 mg/24h patch daily, hydralazine 50 mg tid. 8. HLD. Continue pravastin 20 mg daily. 9. GERD and GI prophylaxis. Continue pepcid 20 mg at hs. 10. DVT prophylaxis. Heparin sq. 11. COVID-19 testing negative. Patient has been hospitalized during a pandemic. Patient will be admitted to the hospital for a minimum of 2 night stay for placement. CODE STATUS: full code with no intubation. to bring in Living Will/DPOA papers. DISCHARGE PLAN TBD. Plan for long-term placement. passementerie worker consult Past Medical History Past Medical History: Coronary Artery Disease (CAD), CVA/TIA, Dementia, Deep Vein Thrombosis (DVT), GERD/Reflux, Hypertension Additional Past Medical History / Comment(s): constipation, brain aneurysm, urinary tract infections History of Any Multi-Drug Resistant Organisms: None Reported Additional Past Surgical History / Comment(s): brain, artem filter, hysterectomy Past Anesthesia/Blood Transfusion Reactions: No Reported Reaction Past Psychological History: No Psychological Hx Reported Smoking Status: Never smoker Past Alcohol Use History: None Reported Past Drug Use History: None Reported Medications and Allergies Home Medications Medication Instructions Recorded Confirmed Type Cranberry Conc/C/Bacill Coag 1 tab PO BID@0700,1900 09/17/13 03/20/21 History [Cranberry Tablet] Docusate Sodium [Stool Softener] 300 mg PO DAILY@1500 09/17/13 03/20/21 History Famotidine [Pepcid] 20 mg PO HS@1900 09/17/13 03/20/21 History Melatonin 10 mg PO HS@1900 09/17/13 03/20/21 History Pravastatin Sodium [Pravachol] 20 mg PO DAILY@0700 09/17/13 03/20/21 History Vitamin A 8,000 unit PO BID@0700,1900 09/17/13 03/20/21 History amLODIPine [Norvasc] 10 mg PO DAILY@0700 09/17/13 03/20/21 History hydrALAZINE HCL [Apresoline] 50 mg PO TID@0700,1500,1900 09/17/13 03/20/21 History cloNIDine 0.1 MG/24HR PATCH 1 patch TRANSDERM SA 12/12/16 03/20/21 History [Catapres-TTS] Bifidobacterium Infantis [Align] 4 mg PO DAILY@1500 04/05/19 03/20/21 History Calcium Carbonate [Calcium] 600 mg PO DAILY@1500 04/05/19 03/20/21 History Metoprolol Succinate (ER) [Toprol 12.5 mg PO HS@1900 04/05/19 03/20/21 History XL] Vit A/Vit C/Vit E/Zinc/Copper 1 cap PO BID@0700,1900 04/05/19 03/20/21 History [ICAPS SOFTGEL] Cholecalciferol [Vitamin D3 (25 50 mcg PO DAILY@1900 10/26/20 03/20/21 History Mcg = 1000 Iu)] Donepezil HCl [Aricept] 10 mg PO HS@1900 03/03/21 03/20/21 History Losartan [Cozaar] 50 mg PO DAILY #30 tab 03/06/21 03/20/21 Rx Allergies Allergy/AdvReac Type Severity Reaction Status Date / Time aloe vera Allergy Unknown Verified 03/20/21 09:48 amlodipine besylate Allergy Unknown Verified 03/20/21 09:48 [From Norvasc] cyclobenzaprine Allergy Unknown Verified 03/20/21 09:48 [Cyclobenzaprine] diclofenac Allergy Unknown Verified 03/20/21 09:48 hydrochlorothiazide Allergy Unknown Verified 03/20/21 09:48 [From Zestoretic] latex Allergy Rash/Hives Verified 03/20/21 09:48 levofloxacin [From Levaquin] Allergy Unknown Verified 03/20/21 09:48 lisinopril Allergy Unknown Verified 03/20/21 09:48 mesalamine [From Asacol] Allergy Unknown Verified 03/20/21 09:48 sulfamethoxazole Allergy Unknown Verified 03/20/21 09:48 [From Bactrim] trimethoprim [From Bactrim] Allergy Unknown Verified 03/20/21 09:48 Physical Exam Vitals: Vital Signs Temp Pulse Resp BP Pulse Ox 03/20/21 07:49 97.9 F 64 18 196/93 98 Intake and Output 03/20/21 03/20/21 03/20/21 06:59 14:59 22:59 Other: Weight 58.967 kg Results CBC & Chem 7: 03/20/21 08:29 03/20/21 08:29 Labs: Abnormal Lab Results - Last 24 Hours (Table) 03/20/21 Range/Units 08:29 BUN 24 H (7-17) mg/dL
[2021-03-20] MEDS ORDERED: MELATONIN 5 MG TABLET PO SCH (19:00)
[2021-03-20] MEDS ORDERED: CHOLECALCIFEROL 25 MCG (1000 IU) TABLET PO SCH (19:00)
[2021-03-20] MEDS ORDERED: FAMOTIDINE 20 MG TAB PO SCH (19:00)
[2021-03-20] MEDS ORDERED: DONEPEZIL 10 MG TAB PO SCH (19:00)
[2021-03-20] MEDS ORDERED: METOPROLOL SUCCINATE (ER) 25 MG TAB.ER.24H PO SCH (19:00)
[2021-03-20] MEDS: [UNRECOGNIZED DRUG - OTHER] PO SCH (21:03)
[2021-03-21] MEDS ORDERED: PRAVASTATIN SODIUM 20 MG TAB PO SCH (07:00)
[2021-03-21] MEDS ORDERED: amLODIPine 10 MG TAB PO SCH (07:00)
[2021-03-21] MEDS: hydrALAZINE HCL 50 MG TAB PO SCH ×2 (07:17→15:30)
[2021-03-21] MEDS: VIT A,C & E-LUTEIN-MINERALS 1 EACH TAB PO SCH (07:17)
[2021-03-21] MEDS: [UNRECOGNIZED DRUG - OTHER] PO SCH (08:30)
[2021-03-21] MEDS ORDERED: LOSARTAN 50 MG TAB PO SCH (09:00)
[2021-03-21] MEDS ORDERED: VITAMIN A 10,000 UNIT (3000 MCG) CAPSULE PO SCH (09:00)
--- NOTE | 2021-03-21 14:20 | P.DS ---
<Jose Mcclellan - Last Filed: 03/21/21 14:05> Providers Expected date of discharge: 03/21/21 Hospital Course: Discharge Diagnosis: Acute on chronic cognitive deficit and admitted secondary to progressively worsening dementia. History of CVA x8. Vascular dementia, with worsening symptoms. CAD, stable, no c/o CP. Hx of hydrocephalus with HYPERBARIC TECHNICIAN shunt 14 years ago. Remote history of tobacco use and dependence. HTN HLD GERD Hospital Course: This is an 85-year-old female patient of Dr. Beltran with past medical history of CAD, CVA, cerebral aneurysm status post coiling the past and vascular dementia, with prior DVT requiring Roosevelt filter, hypertension, hydrocephalus s/p HYPERBARIC TECHNICIAN shunt 14 years ago. Patient lives at home with her . He states that her dementia and confusion have been getting worse. In the last visit, she wandered off the porch and when he came out of the house, she tried to take off and went to Dr. Tobias's home (neighbor) and he convinced her to go home. Patient was brought in by the as patient has progressive dementia. Apparently patient wandered off today and was found few miles away from his house by Law enforcement. brought patient to the hospital for assistance with placement. Patient had full workup completed with CBC and BMP unremarkable with the exception of mild prerenal azotemia with BUN of 34. Urinalysis negative for infection. Covid PCR negative. Brain CT negative for acute intercranial process showing no acute intercranial hemorrhage or midline shift with mild to moderate diffuse cerebral atrophy and mild to moderate stable hydrocephalus with advanced chronic small vessel ischemic changes with old infarcts already demonstrated no difficulty changes reported from recent CT. EKG revealed normal sinus rhythm at 61 bpm with no noted T-wave or ST abnormalities showing no signs of acute ischemia. Medically, patient is stable for discharge. With the assistance of social work and case management, patient's has made arrangements for patient to be admitted to [facility] tomorrow. Patient's requesting to take patient home 1 last night stating he will take her to her podiatry appointment tomorrow morning and straight to [facility] for admission. Patient's has been educated that patient requires 24-hour supervision at all times and cannot be left alone. Patient's verbalized understanding. Patient is going to finish final arrangements at [facility] today at 2 pm and to return to facility to take home once completed. Physical Examination: Patient seen and examined at bedside. Vital signs reviewed and stable. General: Nontoxic, no distress and appears stated age. Very thin build. Derm: Skin warm and dry, normal coloration for ethnicity. Head: Atraumatic, normocephalic and symmetric. Eyes: EOMs intact, no lid lag, and anicteric sclera Mouth: no lip lesions, mucus membranes moist Cardiovascular: regular rate and rhythm with normal S1S2, no murmur, positive posterior tibial pulses bilaterally, and cap refill < 2 seconds. Lungs: Respirations even, regular, and unlabored on room air. Lungs CTA bilaterally, no rhonchi, no rales, no wheezing, and no accessory muscle usage. Abdominal: soft, nontender to palpation, no guarding, no appreciable organomegaly Ext: ROM intact. No gross muscle atrophy, no edema, no contractures Neuro: Speech clear, face symmetrical and CN II-XII grossly intact with no noted focal neuro deficits Psych: Alert and oriented to person, place, time, and situation. Appropriate and pleasant affect. A total of 45 minutes of time were spent preparing this complex discharge summary. Patient Condition at Discharge: Fair Plan - Discharge Summary Discharge Rx Participant: Yes New Discharge Prescriptions: Continue Famotidine [Pepcid] 20 mg PO HS@1900 Cranberry Conc/C/Bacill Coag [Cranberry Tablet] 1 tab PO BID@0700,1900 Melatonin 10 mg PO HS@1900 Docusate Sodium [Stool Softener] 300 mg PO DAILY@1500 Vitamin A 8,000 unit PO BID@0700,1900 Pravastatin Sodium [Pravachol] 20 mg PO DAILY@0700 hydrALAZINE HCL [Apresoline] 50 mg PO TID@0700,1500,1900 amLODIPine [Norvasc] 10 mg PO DAILY@0700 cloNIDine 0.1 MG/24HR PATCH [Catapres-TTS] 1 patch TRANSDERM SA Bifidobacterium Infantis [Align] 4 mg PO DAILY@1500 Calcium Carbonate [Calcium] 600 mg PO DAILY@1500 Metoprolol Succinate (ER) [Toprol XL] 12.5 mg PO HS@1900 Vit A/Vit C/Vit E/Zinc/Copper [ICAPS SOFTGEL] 1 cap PO BID@0700,1900 Cholecalciferol [Vitamin D3 (25 Mcg = 1000 Iu)] 50 mcg PO DAILY@1900 Donepezil HCl [Aricept] 10 mg PO HS@1900 Losartan [Cozaar] 50 mg PO DAILY #30 tab Discharge Medication List Cranberry Conc/C/Bacill Coag [Cranberry Tablet] 1 tab PO BID@0700,1900 09/17/13 [History] Docusate Sodium [Stool Softener] 300 mg PO DAILY@1500 09/17/13 [History] Famotidine [Pepcid] 20 mg PO HS@189909/17/13 [History] Melatonin 10 mg PO HS@189909/17/13 [History] Pravastatin Sodium [Pravachol] 20 mg PO DAILY@0709/17/13 [History] Vitamin A 8,000 unit PO BID@0700,19009/17/13 [History] amLODIPine [Norvasc] 10 mg PO DAILY@0709/17/13 [History] hydrALAZINE HCL [Apresoline] 50 mg PO TID@0700,1500,19009/17/13 [History] cloNIDine 0.1 MG/24HR PATCH [Catapres-TTS] 1 patch TRANSDERM SA 12/12/16 [History] Bifidobacterium Infantis [Align] 4 mg PO DAILY@1500 04/05/19 [History] Calcium Carbonate [Calcium] 600 mg PO DAILY@1500 04/05/19 [History] Metoprolol Succinate (ER) [Toprol XL] 12.5 mg PO HS@19004/05/19 [History] Vit A/Vit C/Vit E/Zinc/Copper [ICAPS SOFTGEL] 1 cap PO BID@0700,1900 04/05/19 [History] Cholecalciferol [Vitamin D3 (25 Mcg = 1000 Iu)] 50 mcg PO DAILY@1900 10/26/20 [History] Donepezil HCl [Aricept] 10 mg PO HS@19003/03/21 [History] Losartan [Cozaar] 50 mg PO DAILY #30 tab 03/06/21 [Rx] Follow up Appointment(s)/Referral(s): Unruly Beltran MD [Primary Care Provider] - 1-2 days Activity/Diet/Wound Care/Special Instructions: Activity: As tolerated. Patient requires 24 hour supervision at all times. Diet: Heart healthy diet. Special Instructions: Take all of your medications as directed and remember to keep all of your doctor's appointments and follow-up as needed. Pt is being discharged home in the care of her understanding that his requires 24 hour supervision at all times and has made arrangements for her admission to [facility] tomorrow. Pt is a high risk of wandering due to her advanced dementia she requires 24 hour supervision. Thank you for allowing us to participate in your care, it was truly a pleasure having you for our patient!!! Discharge Disposition: HOME SELF-CARE <ChiragKerry - Last Filed: 03/21/21 14:39> Providers Date of admission: 03/20/21 14:46 Attending physician: Unruly Beltran Primary care physician: Unruly Beltran [facility] Course: Patient seen and examined independently. Patient was also seen by Jose Mcclellan NP and case was discussed. I am in agreement with discharge diagnosis, hospital course, and physical exam as written above and amended below. She is alert to self, deneis any pain, pleasntly confused at bedside. All questions answered. He is aware that he needs to be with the patient for 01/12 and she cannot be alone. He will take her to [facility] after her Dr appointment tomorrow. General: non toxic, no distress, appears at stated age Derm: warm, dry Head: atraumatic, normocephalic, symmetric Eyes: EOMI, no lid lag, anicteric sclera Mouth: no lip lesion, mucus membranes moist Cardiovascular: S1S2 reg, no murmur, positive posterior tibial pulse bilateral, Lungs: CTA bilateral, no rhonchi, no rales , no accessory muscle use Abdominal: soft, nontender to palpation, no guarding, no appreciable organomegaly Ext: no gross muscle atrophy, no edema, no contractures Neuro: CN II-XI grossly intact, no focal neuro deficits Psych: Alert, oriented,X 0 appropriate affect
[2021-03-21 15:23] VITALS: RESP 16; TEMP 97.4
[2021-03-21 15:30] VITALS: BP 93/59; PULSE 94
[2021-03-21] MEDS: DOCUSATE 100 MG CAP PO SCH (15:31)
[2021-03-21] MEDS: CALCIUM CARBONATE 500 MG CHEWABLE PO SCH (15:31)
[2021-03-21] MEDS: LACTOBACILLUS ACIDOPH & BULGAR 1 EACH PACKET PO SCH (15:32)
[2021-03-23] MEDS ORDERED: cloNIDine 0.1 MG/24HR PATCH TRANSDERM SCH (09:00)
== END 2021-03-21 17:34 | disposition home or self-care (01) | DRG 884 ==
LOC: EC 07:41 → 5NMEDONC 14:46
PROVIDERS: ADMIT Internal Medicine Geriatric Medicine; ATTEND Internal Medicine Geriatric Medicine
DX: F01.50 Vascular dementia, unspecified severity, without behavioral disturbance, psychotic disturbance, mood disturbance, and anxiety (principal); E78.5 Hyperlipidemia, unspecified; I10 Essential (primary) hypertension; I25.10 Atherosclerotic heart disease of native coronary artery without angina pectoris; K21.9 Gastro-esophageal reflux disease without esophagitis; Z20.822 Contact with and (suspected) exposure to COVID-19; K59.00 Constipation, unspecified; R79.89 Other specified abnormal findings of blood chemistry; R41.89 Other symptoms and signs involving cognitive functions and awareness; Z79.899 Other long term (current) drug therapy; Z82.3 Family history of stroke; Z86.718 Personal history of other venous thrombosis and embolism; Z86.73 Personal history of transient ischemic attack (TIA), and cerebral infarction without residual deficits; Z87.891 Personal history of nicotine dependence; Z90.710 Acquired absence of both cervix and uterus; Z98.2 Presence of cerebrospinal fluid drainage device
CPT/HCPCS: 36415; 70450; 80048; 81003; 85025; 87635; 93005; 99285

== ENCOUNTER 2021-06-05 03:29 | Emergency (ER) | payer MEDICARE, BC ==
[2021-06-05 03:42] VITALS: BP 99/58; PULSE 62; RESP 16; TEMP 98.2
--- NOTE | 2021-06-05 05:34 | ED ---
Psych HPI - General Stated Complaint: Mental health Time Seen by Provider: 06/05/21 03:32 Source: patient, EMS Mode of arrival: EMS Limitations: physical limitation (Patient has underlying dementia) - History of Present Illness Initial Comments: This patient is an 88-year-old woman sent to have evaluation by skilled nursing staff. The patient reportedly was acting out and combative with the staff. EMS arrived to find the patient combative but she did become calm with one of the EMS personnel. He was able to console her during the ride here. When I review the patient, she denies any physical complaints. She does not recall being upset with staff. She does not know why she is here. MD Complaint: other Associated Psychiatric Symptoms: other History of same: No Quality: resolved prior to arrival Improves With: none Worsens With: none Associated Symptoms: denies other symptoms - Related Data Allergies Allergy/AdvReac Type Severity Reaction Status Date / Time No Known Allergies Allergy Verified 05/24/21 18:05 Review of Systems ROS Statement: Those systems with pertinent positive or pertinent negative responses have been documented in the HPI. ROS Other: All systems not noted in ROS Statement are negative. Constitutional: Denies: fever Respiratory: Denies: cough, dyspnea Cardiovascular: Denies: chest pain Gastrointestinal: Denies: abdominal pain Musculoskeletal: Denies: back pain Neurological: Denies: headache Psychiatric: Denies: homicidal thoughts Past Medical History Past Medical History: Heart Failure, Dementia, GERD/Reflux, Hyperlipidemia, Hypertension, Seizure Disorder History of Any Multi-Drug Resistant Organisms: None Reported Past Surgical History: Unable to Obtain Past Psychological History: No Psychological Hx Reported Smoking Status: Never smoker Past Alcohol Use History: None Reported Past Drug Use History: None Reported General Exam Limitations: altered mental status General appearance: alert, in no apparent distress Head exam: Present: atraumatic, normocephalic Eye exam: Present: normal appearance, EOMI. Absent: scleral icterus, conjunctival injection Respiratory exam: Present: normal lung sounds bilaterally. Absent: respiratory distress, wheezes, rales, rhonchi, stridor, chest wall tenderness Cardiovascular Exam: Present: regular rate, normal rhythm, normal heart sounds. Absent: systolic murmur, diastolic murmur, rubs, gallop GI/Abdominal exam: Present: soft. Absent: tenderness, guarding, rebound Extremities exam: Absent: tenderness Back exam: Absent: vertebral tenderness Neurological exam: Present: alert. Absent: oriented X3, motor sensory deficit Psychiatric exam: Absent: homicidal ideation Skin exam: Present: warm, dry, intact, normal color. Absent: rash Course Vital Signs 06/05/21 03:39 Temperature 98.2 F Pulse Rate 62 Respiratory 16 Rate Blood Pressure 99/58 O2 Sat by Pulse 95 Oximetry Disposition Clinical Impression: Dementia Disposition: HOME SELF-CARE Condition: Good Instructions (If sedation given, give patient instructions): Dementia (ED) Is patient prescribed a controlled substance at d/c from ED?: No Referrals: Unruly Beltran MD [Primary Care Provider] - 1-2 days
== END 2021-06-05 06:47 | disposition home or self-care (01) ==
LOC: EDBD → EC 03:29 → MERGE 03:29 → EC 06:47
DX: F03.90 Unspecified dementia, unspecified severity, without behavioral disturbance, psychotic disturbance, mood disturbance, and anxiety (principal); I11.0 Hypertensive heart disease with heart failure; I50.9 Heart failure, unspecified; K21.9 Gastro-esophageal reflux disease without esophagitis; E78.5 Hyperlipidemia, unspecified
CPT/HCPCS: 82075; 99284

== ENCOUNTER 2021-06-06 11:18 | Emergency (ER) | payer MEDICARE, BC ==
[2021-06-06] MEDS ORDERED: LORazepam 2 MG/ML INJ IV STA (11:52)
[2021-06-06 12:20] VITALS: RESP 18
[2021-06-06 12:24] LABS: Basophils % (A) 1 %; Eosinophils % (A) 1 %; HCT 35.5 % (34.0-46.0); HGB 11.4 gm/dL (11.4-16.0); Lymphocytes # (A) 0.8 k/uL (1.0-4.8); Lymphocytes % (A) 17 %; MCH 29.2 pg (25.0-35.0); MCHC 32.1 g/dL (31.0-37.0); Mean Platelet Volume 8.2; Monocytes # (A) 0.5 k/uL (0-1.0); Monocytes % (A) 11 %; Neutrophils # (A) 2.9 k/uL (1.3-7.7); Neutrophils % (A) 66 %; Platelet Count 281 k/uL (150-450); RDW 15.2 % (11.5-15.5); WBC 4.3 k/uL (3.8-10.6)
[2021-06-06 12:36] LABS: Albumin 3.2 g/dL (3.5-5.0); Calcium 9.4 mg/dL (8.4-10.2); Potassium 3.9 mmol/L (3.5-5.1); Total Bilirubin 0.3 mg/dL (0.2-1.3); Total Protein 6.3 g/dL (6.3-8.2)
[2021-06-06 12:37] LABS: Amorphous Sediment,Urine Few /hpf; Appearance,Urine Cloudy (Clear); Bacteria,Urine Rare /hpf; Bilirubin,Urine Negative (Negative); Blood,Urine Negative (Negative); Color,Urine Yellow; Glucose,Urine (UA) Negative (Negative); Hyaline Casts,Urine 1 /lpf (0-2); Ketones,Urine Negative (Negative); Leukocyte Esterase,Urine Large (Negative); Mucus,Urine Rare /hpf; Nitrite,Urine Positive (Negative); PH, Urine 6.5 (5.0-8.0); Protein,Urine Trace (Negative); RBC,Urine 5 /hpf (0-5); Specific Gravity,Urine 1.013 (1.001-1.035); Squamous Epithelial Cell,Urine 1 /hpf (0-4); Urobilinogen,Urine <2.0 mg/dL (<2.0); WBC,Urine 89 /hpf (0-5)
[2021-06-06] MEDS ORDERED: cefTRIAXone IN SWFI 1,000 MG/10 ML SYRINGE IVP STA (12:51)
[2021-06-06] MEDS ORDERED: SODIUM CHLORIDE 0.9% 500 ML 500 ML IV ONE (12:51)
--- NOTE | 2021-06-06 13:04 | ED ---
General Adult HPI - General Chief complaint: Altered Mental Status Stated complaint: AMS/Mental Health Time Seen by Provider: 06/06/21 11:33 Source: patient, EMS, RN notes reviewed, old records reviewed Mode of arrival: EMS Limitations: altered mental status - History of Present Illness Initial comments: 88-year-old female presenting with increased confusion, and agitation. Patient, from correction. She does have history of dementia. She has had some angry outbursts and his been more verbal than normal. I did obtain the entire history from the patient's who states that she does have history of dementia and has had worsening over the past several days, there is concern for UTI because the patient has been known to have recurrent UTI in the past. No fever. No vomiting. No focal numbness or weakness. No pain complaints. - Related Data Previous Rx's Medication Instructions Recorded Cephalexin [Keflex] 500 mg PO TID #21 cap 06/06/21 Allergies Allergy/AdvReac Type Severity Reaction Status Date / Time No Known Allergies Allergy Verified 06/06/21 11:30 Review of Systems ROS Statement: Those systems with pertinent positive or pertinent negative responses have been documented in the HPI. ROS Other: All systems not noted in ROS Statement are negative. Past Medical History Past Medical History: Heart Failure, Dementia, GERD/Reflux, Hyperlipidemia, Hypertension, Seizure Disorder History of Any Multi-Drug Resistant Organisms: None Reported Past Surgical History: Unable to Obtain Past Psychological History: No Psychological Hx Reported Smoking Status: Never smoker Past Alcohol Use History: None Reported Past Drug Use History: None Reported General Exam Limitations: altered mental status General appearance: alert, in no apparent distress Head exam: Present: atraumatic, normocephalic Eye exam: Present: normal appearance, PERRL ENT exam: Present: normal exam Neck exam: Present: normal inspection. Absent: tenderness, meningismus Respiratory exam: Present: normal lung sounds bilaterally. Absent: respiratory distress, wheezes Cardiovascular Exam: Present: regular rate, normal rhythm GI/Abdominal exam: Present: soft. Absent: distended, tenderness, guarding Neurological exam: Present: alert. Absent: oriented X3 Psychiatric exam: Present: agitated Skin exam: Present: warm, dry, intact. Absent: cyanosis, diaphoretic Course Vital Signs 06/06/21 06/06/21 11:23 12:00 Temperature 98.3 F Pulse Rate 70 68 Respiratory 16 18 Rate Blood Pressure 99/63 123/70 O2 Sat by Pulse 96 96 Oximetry Medical Decision Making - Medical Decision Making Patient initially quite agitated, given 1 mg of IV Ativan. Workup is initiated. She has normal CBC, normal CMP, urinalysis does show signs of urinary tract infection. Culture will be obtained. She started on Rocephin for some IV fluid in the emergency department. I did discuss the results with her . At this time we will discharge back to the correction with antibiotics for UTI. - Lab Data Result diagrams: 06/06/21 12:16 06/06/21 12:16 Lab Results 06/06/21 06/06/21 06/06/21 Range/Units 12:16 12:16 12:16 WBC 4.3 (3.8-10.6) k/uL RBC 3.90 (3.80-5.40) m/uL Hgb 11.4 (11.4-16.0) gm/dL Hct 35.5 (34.0-46.0) % MCV 91.0 (80.0-100.0) fL MCH 29.2 (25.0-35.0) pg MCHC 32.1 (31.0-37.0) g/dL RDW 15.2 (11.5-15.5) % Plt Count 281 (150-450) k/uL MPV 8.2 Neutrophils % 66 % Lymphocytes % 17 % Monocytes % 11 % Eosinophils % 1 % Basophils % 1 % Neutrophils # 2.9 (1.3-7.7) k/uL Lymphocytes # 0.8 L (1.0-4.8) k/uL Monocytes # 0.5 (0-1.0) k/uL Eosinophils # 0.0 (0-0.7) k/uL Basophils # 0.0 (0-0.2) k/uL Sodium 137 (137-145) mmol/L Potassium 3.9 (3.5-5.1) mmol/L Chloride 106 (98-107) mmol/L Carbon Dioxide 25 (22-30) mmol/L Anion Gap 6 mmol/L BUN 28 H (7-17) mg/dL Creatinine 0.94 (0.52-1.04) mg/dL Est GFR (CKD-EPI)AfAm 64 (>60 ml/min/1.73 sqM) Est GFR (CKD-EPI)NonAf 55 (>60 ml/min/1.73 sqM) Glucose 113 H (74-99) mg/dL Calcium 9.4 (8.4-10.2) mg/dL Total Bilirubin 0.3 (0.2-1.3) mg/dL AST 17 (14-36) U/L ALT 13 (4-34) U/L Alkaline Phosphatase 53 (38-126) U/L Total Protein 6.3 (6.3-8.2) g/dL Albumin 3.2 L (3.5-5.0) g/dL Urine Color Yellow Urine Appearance Cloudy H (Clear) Urine pH 6.5 (5.0-8.0) Ur Specific [place] 1.013 (1.001-1.035) Urine Protein Trace H (Negative) Urine Glucose (UA) Negative (Negative) Urine Ketones Negative (Negative) Urine Blood Negative (Negative) Urine Nitrite Positive H (Negative) Urine Bilirubin Negative (Negative) Urine Urobilinogen <2.0 (<2.0) mg/dL Ur Leukocyte Esterase Large H (Negative) Urine RBC 5 (0-5) /hpf Urine WBC 89 H (0-5) /hpf Ur Squamous Epith Cells 1 (0-4) /hpf Amorphous Sediment Few H (None) /hpf Urine Bacteria Rare H (None) /hpf Hyaline Casts 1 (0-2) /lpf Urine Mucus Rare H (None) /hpf Disposition Clinical Impression: Dementia, UTI (urinary tract infection) Disposition: HOME SELF-CARE Condition: Fair Instructions (If sedation given, give patient instructions): Dementia (ED), Urinary Tract Infection in Women (ED) Prescriptions: Cephalexin [Keflex] 500 mg PO TID #21 cap Is patient prescribed a controlled substance at d/c from ED?: No Referrals: Unruly Beltran MD [Primary Care Provider] - 1-2 days Time of Disposition: 13:03
[2021-06-06 13:56] VITALS: BP 120/82; PULSE 70; TEMP 98.1
== END 2021-06-06 14:04 | disposition home or self-care (01) ==
LOC: EDBD → EC 11:18 → MERGE 11:18 → EC 14:04
DX: F03.90 Unspecified dementia, unspecified severity, without behavioral disturbance, psychotic disturbance, mood disturbance, and anxiety (principal); N39.0 Urinary tract infection, site not specified; I11.0 Hypertensive heart disease with heart failure; I50.9 Heart failure, unspecified; K21.9 Gastro-esophageal reflux disease without esophagitis; E78.5 Hyperlipidemia, unspecified
CPT/HCPCS: 99285; 96374; 96375; 96361; 36415; 80053; 85025; 81001; 87086; J2060; J0696; 87077; 87186

== ENCOUNTER → 2021-06-20 | Outpatient (CLI) | payer MEDICARE, BC ==
[2021-06-20 16:16] LABS: T4, Free (Free Thyroxine) 1.29 ng/dL (0.800-1.800)
== END | disposition home or self-care (01) ==
LOC: LABWHC1 08:50
PROVIDERS: ATTEND Psychiatry & Neurology Neurology
DX: Z00.00 Encounter for general adult medical examination without abnormal findings (principal)
CPT/HCPCS: 36415; 82607; 84439; 84443

== ENCOUNTER 2021-06-27 13:51 | Emergency (ER) | payer MEDICARE, BC ==
[2021-06-27] MEDS ORDERED: SODIUM CHLORIDE 0.9% 500 ML 500 ML IV ONE (14:41)
[2021-06-27 15:20] LABS: Glucose,Whole Blood 104 mg/dL (75-99)
[2021-06-27 15:27] VITALS: RESP 18
[2021-06-27 15:51] LABS: Basophils % (A) 1 %; Eosinophils % (A) 1 %; HCT 37.6 % (34.0-46.0); HGB 12.4 gm/dL (11.4-16.0); Lymphocytes # (A) 0.9 k/uL (1.0-4.8); Lymphocytes % (A) 17 %; MCH 30.1 pg (25.0-35.0); MCV 91.2 fL (80.0-100.0); Mean Platelet Volume 7.8; Monocytes # (A) 0.5 k/uL (0-1.0); Monocytes % (A) 9 %; Neutrophils # (A) 3.9 k/uL (1.3-7.7); Neutrophils % (A) 69 %; Platelet Count 283 k/uL (150-450); RBC 4.13 m/uL (3.80-5.40); RDW 14.6 % (11.5-15.5); WBC 5.6 k/uL (3.8-10.6)
[2021-06-27 16:01] LABS: Albumin 4.3 g/dL (3.5-5.0); Calcium 10.4 mg/dL (8.4-10.2); Potassium 4.2 mmol/L (3.5-5.1); Total Bilirubin 0.3 mg/dL (0.2-1.3); Total Protein 7.7 g/dL (6.3-8.2)
[2021-06-27 16:02] LABS: Bacteria,Urine Occasional /hpf; Budding Yeast,Urine Few /hpf; RBC,Urine 1 /hpf (0-5); Squamous Epithelial Cell,Urine 2 /hpf (0-4); WBC,Urine >182 /hpf (0-5)
[2021-06-27 16:03] LABS: Appearance,Urine Cloudy (Clear); Bilirubin,Urine Negative (Negative); Color,Urine Yellow; Glucose,Urine (UA) Negative (Negative); Ketones,Urine Negative (Negative); Protein,Urine Trace (Negative); Specific Gravity,Urine 1.017 (1.001-1.035)
[2021-06-27 16:04] LABS: Blood,Urine Negative (Negative); Leukocyte Esterase,Urine Large (Negative); Nitrite,Urine Negative (Negative); Urobilinogen,Urine <2.0 mg/dL (<2.0)
[2021-06-27 16:08] LABS: Prothrombin Time 10.7 sec (9.0-12.0)
--- NOTE | 2021-06-27 16:35 | ED ---
General Adult HPI - General Chief complaint: Abdominal Pain Stated complaint: possible bladder infection Time Seen by Provider: 06/27/21 14:16 Source: patient, family Mode of arrival: ambulatory Limitations: altered mental status - History of Present Illness Initial comments: 85-year-old female patient is brought in by for evaluation of increased agitation and combativeness. States last time she was like this she had a urinary tract infection. Patient states she feels fine. Denies any abdominal pain. Denies hematuria, dysuria, urinary urgency, or frequency. Denies any back pain. Denies fever, chills, nausea, or vomiting. She is eating and drinking without difficulty. They deny any recent fall or head injury. Patient denies any recent rash, cough, shortness of breath, chest pain, diarrhea, constipation, back pain, numbness, tingling, dizziness, weakness, headache, visual changes, or any other complaints. - Related Data Home Medications Medication Instructions Recorded Confirmed Cranberry Conc/C/Bacill Coag 1 tab PO BID@0700,1900 09/17/13 03/20/21 [Cranberry Tablet] Docusate Sodium [Stool Softener] 300 mg PO DAILY@1500 09/17/13 03/20/21 Famotidine [Pepcid] 20 mg PO HS@1900 09/17/13 03/20/21 Melatonin 10 mg PO HS@19009/17/13 03/20/21 Pravastatin Sodium [Pravachol] 20 mg PO DAILY@0700 09/17/13 03/20/21 Vitamin A 8,000 unit PO BID@0700,1900 09/17/13 03/20/21 amLODIPine [Norvasc] 10 mg PO DAILY@0700 09/17/13 03/20/21 hydrALAZINE HCL [Apresoline] 50 mg PO TID@0700,1500,1900 09/17/13 03/20/21 cloNIDine 0.1 MG/24HR PATCH 1 patch TRANSDERM SA 12/12/16 03/20/21 [Catapres-TTS] Bifidobacterium Infantis [Align] 4 mg PO DAILY@1500 04/05/19 03/20/21 Calcium Carbonate [Calcium] 600 mg PO DAILY@1500 04/05/19 03/20/21 Metoprolol Succinate (ER) [Toprol 12.5 mg PO HS@1900 04/05/19 03/20/21 XL] Vit A/Vit C/Vit E/Zinc/Copper 1 cap PO BID@0700,1900 04/05/19 03/20/21 [ICAPS SOFTGEL] Cholecalciferol [Vitamin D3 (25 50 mcg PO DAILY@1900 10/26/20 03/20/21 Mcg = 1000 Iu)] Donepezil HCl [Aricept] 10 mg PO HS@189903/03/21 03/20/21 Bifidobacterium Infantis [Align] 4 mg PO DAILY@1500 06/06/21 06/06/21 Calcium Carbonate [Calcium] 600 mg PO DAILY@0800 06/06/21 06/06/21 Cholecalciferol [Vitamin D3 (25 50 mcg PO HS@199906/06/21 06/06/21 Mcg = 1000 Iu)] Cranberry W/Probiotic 1 cap PO BID@0800,199906/06/21 06/06/21 Docusate [Colace] 300 mg PO HS@199906/06/21 06/06/21 Donepezil [Aricept] 10 mg PO HS@199906/06/21 06/06/21 Famotidine [Pepcid] 20 mg PO HS@199906/06/21 06/06/21 Losartan [Cozaar] 50 mg PO DAILY@0806/06/21 06/06/21 Melatonin 10 mg PO HS@199906/06/21 06/06/21 Memantine [Namenda] 10 mg PO BID@0800,199906/06/21 06/06/21 Metoprolol Succinate (ER) [Toprol 12.5 mg PO HS@199906/06/21 06/06/21 XL] Pravastatin Sodium [Pravachol] 20 mg PO HS@199906/06/21 06/06/21 Vitamin A [Vitamin A (8,000 Units 2,400 mcg PO BID@0800,199906/06/21 06/06/21 = 2,400 MCG)] Vitc/E/Zinc/Copper/Lutein/Zeax 1 tab PO BID@0800,199906/06/21 06/06/21 [Icaps Areds2 Tablet] amLODIPine [Norvasc] 10 mg PO DAILY@0800 06/06/21 06/06/21 cloNIDine 0.1 MG/24HR PATCH 1 patch TRANSDERM SA@0800 06/06/21 06/06/21 [Catapres-TTS] hydrALAZINE HCL [Apresoline] 50 mg PO TID@0800,1400,199906/06/21 06/06/21 lamoTRIgine [LaMICtal] 25 mg PO HS@199906/06/21 06/06/21 traZODone HCL 50 mg PO HS@199906/06/21 06/06/21 Previous Rx's Medication Instructions Recorded Losartan [Cozaar] 50 mg PO DAILY #30 tab 03/06/21 Cephalexin [Keflex] 500 mg PO TID #21 cap 06/06/21 Nitrofurantoin Monohyd/M-Cryst 100 mg PO Q12HR #14 cap 06/27/21 [Macrobid] Allergies Allergy/AdvReac Type Severity Reaction Status Date / Time aloe Allergy Per Verified 06/27/21 16:45 [facility] aloe vera Allergy Unknown Verified 06/27/21 16:45 amlodipine [From Norvasc] Allergy Per Verified 06/27/21 16:45 [facility]/patient takes 10mg daily amlodipine besylate Allergy Unknown Verified 06/27/21 16:45 [From Norvasc] cyclobenzaprine Allergy Unknown Verified 06/27/21 16:45 [Cyclobenzaprine] diclofenac Allergy Unknown Verified 06/27/21 16:45 hydrochlorothiazide Allergy Unknown Verified 06/27/21 16:45 [From Zestoretic] latex Allergy Rash/Hives Verified 06/27/21 16:45 levofloxacin [From Levaquin] Allergy Unknown Verified 06/27/21 16:45 lisinopril Allergy Unknown Verified 06/27/21 16:45 mesalamine [From Asacol] Allergy Unknown Verified 06/27/21 16:45 sulfamethoxazole Allergy Unknown Verified 06/27/21 16:45 [From Bactrim] trimethoprim [From Bactrim] Allergy Unknown Verified 06/27/21 16:45 Review of Systems ROS Statement: Those systems with pertinent positive or pertinent negative responses have been documented in the HPI. ROS Other: All systems not noted in ROS Statement are negative. Past Medical History Past Medical History: Coronary Artery Disease (CAD), Heart Failure, CVA/TIA, Dementia, Deep Vein Thrombosis (DVT), GERD/Reflux, Hyperlipidemia, Hypertension, Seizure Disorder Additional Past Medical History / Comment(s): covid History of Any Multi-Drug Resistant Organisms: None Reported Past Surgical History: Unable to Obtain Additional Past Surgical History / Comment(s): brain, artem filter, hysterectomy Past Anesthesia/Blood Transfusion Reactions: No Reported Reaction Past Psychological History: No Psychological Hx Reported Smoking Status: Never smoker, Unknown if ever smoked Past Alcohol Use History: None Reported Past Drug Use History: None Reported General Exam Limitations: altered mental status General appearance: alert, in no apparent distress, other (This is a well- developed, well-nourished elderly female patient in no acute distress.) Eye exam: Present: normal appearance, PERRL, EOMI. Absent: scleral icterus, conjunctival injection, nystagmus, periorbital swelling ENT exam: Present: normal exam, normal oropharynx, mucous membranes moist Respiratory exam: Present: normal lung sounds bilaterally. Absent: respiratory distress, wheezes, rales, rhonchi, stridor Cardiovascular Exam: Present: regular rate, normal rhythm, normal heart sounds. Absent: systolic murmur, diastolic murmur, rubs, gallop, clicks GI/Abdominal exam: Present: soft, normal bowel sounds. Absent: distended, tenderness, guarding, rebound, rigid Neurological exam: Present: alert, CN II-XII intact. Absent: oriented X3 (Oriented 2) Psychiatric exam: Present: normal affect, normal mood Skin exam: Present: warm, dry, intact, normal color. Absent: rash Course Vital Signs 06/27/21 06/27/21 14:04 15:26 Temperature 97.9 F Pulse Rate 82 68 Respiratory 20 18 Rate Blood Pressure 126/72 143/78 O2 Sat by Pulse 98 97 Oximetry EKG Findings - EKG Comments: EKG Findings:: EKG obtained at 1523 shows sinus rhythm with occasional supraventricular premature complexes. Ventricular rate 63, PA interval 162, QR alevism 94, QT 411, QTC 418. No evidence of ST elevation or depression. Medical Decision Making - Medical Decision Making 85-year-old female patient presenting with for increased agitation and confusion. She does currently reside at assisted living facility. Physical examination is unremarkable. She is neurologically intact. Labs reviewed and did reveal normal white blood cell count. Persistently elevated BUN and creatinine. She does have evidence for urinary tract infection. Did review previous cultures which showed susceptibility for all antibiotics. She was started on Macrobid. Discharged home to follow-up with her primary care physician for recheck in 1-2 days. Return parameters were discussed in detail. Patient and verbalize understanding and agree with this plan. My attending is Dr. Barnett. - Lab Data Result diagrams: 06/27/21 15:17 06/27/21 15:17 Lab Results 06/27/21 06/27/21 06/27/21 Range/Units 14:41 15:17 15:17 WBC 5.6 (3.8-10.6) k/uL RBC 4.13 (3.80-5.40) m/uL Hgb 12.4 (11.4-16.0) gm/dL Hct 37.6 (34.0-46.0) % MCV 91.2 (80.0-100.0) fL MCH 30.1 (25.0-35.0) pg MCHC 33.0 (31.0-37.0) g/dL RDW 14.6 (11.5-15.5) % Plt Count 283 (150-450) k/uL MPV 7.8 Neutrophils % 69 % Lymphocytes % 17 % Monocytes % 9 % Eosinophils % 1 % Basophils % 1 % Neutrophils # 3.9 (1.3-7.7) k/uL Lymphocytes # 0.9 L (1.0-4.8) k/uL Monocytes # 0.5 (0-1.0) k/uL Eosinophils # 0.0 (0-0.7) k/uL Basophils # 0.0 (0-0.2) k/uL PT 10.7 (9.0-12.0) sec INR 1.0 (<1.2) APTT 22.0 (22.0-30.0) sec Sodium (137-145) mmol/L Potassium (3.5-5.1) mmol/L Chloride (98-107) mmol/L Carbon Dioxide (22-30) mmol/L Anion Gap mmol/L BUN (7-17) mg/dL Creatinine (0.52-1.04) mg/dL Est GFR (CKD-EPI)AfAm (>60 ml/min/1.73 sqM) Est GFR (CKD-EPI)NonAf (>60 ml/min/1.73 sqM) Glucose (74-99) mg/dL POC Glucose (mg/dL) (75-99) mg/dL POC Glu [place] ID Calcium (8.4-10.2) mg/dL Total Bilirubin (0.2-1.3) mg/dL AST (14-36) U/L ALT (4-34) U/L Alkaline Phosphatase (38-126) U/L Troponin I (0.000-0.034) ng/mL Total Protein (6.3-8.2) g/dL Albumin (3.5-5.0) g/dL Urine Color Yellow Urine Appearance Cloudy H (Clear) Urine pH 6.0 (5.0-8.0) Ur Specific [place] 1.017 (1.001-1.035) Urine Protein Trace (Negative) Ur Protein Confirm Not Reportable Urine Glucose (UA) Negative (Negative) Urine Ketones Negative (Negative) Urine Blood Negative (Negative) Urine Nitrite Negative (Negative) Urine Bilirubin Negative (Negative) Ur Bilirubin Confirm Not Reportable Urine Urobilinogen <2.0 (<2.0) mg/dL Ur Leukocyte Esterase Large (Negative) Urine RBC 1 (0-5) /hpf Urine WBC >182 H (0-5) /hpf Urine WBC Clumps Many H (None) /hpf Ur Squamous Epith Cells 2 (0-4) /hpf Urine Bacteria Occasional H (None) /hpf Urine Yeast (Budding) Few H (None) /hpf 06/27/21 06/27/21 06/27/21 Range/Units 15:17 15:17 15:19 WBC (3.8-10.6) k/uL RBC (3.80-5.40) m/uL Hgb (11.4-16.0) gm/dL Hct (34.0-46.0) % MCV (80.0-100.0) fL MCH (25.0-35.0) pg MCHC (31.0-37.0) g/dL RDW (11.5-15.5) % Plt Count (150-450) k/uL MPV Neutrophils % % Lymphocytes % % Monocytes % % Eosinophils % % Basophils % % Neutrophils # (1.3-7.7) k/uL Lymphocytes # (1.0-4.8) k/uL Monocytes # (0-1.0) k/uL Eosinophils # (0-0.7) k/uL Basophils # (0-0.2) k/uL PT (9.0-12.0) sec INR (<1.2) APTT (22.0-30.0) sec Sodium 139 (137-145) mmol/L Potassium 4.2 (3.5-5.1) mmol/L Chloride 103 (98-107) mmol/L Carbon Dioxide 25 (22-30) mmol/L Anion Gap 11 mmol/L BUN 33 H (7-17) mg/dL Creatinine 1.12 H (0.52-1.04) mg/dL Est GFR (CKD-EPI)AfAm 52 (>60 ml/min/1.73 sqM) Est GFR (CKD-EPI)NonAf 46 (>60 ml/min/1.73 sqM) Glucose 114 H (74-99) mg/dL POC Glucose (mg/dL) 104 H (75-99) mg/dL POC Glu [place]yer ID [place] Calcium 10.4 H (8.4-10.2) mg/dL Total Bilirubin 0.3 (0.2-1.3) mg/dL AST 21 (14-36) U/L ALT 15 (4-34) U/L Alkaline Phosphatase 59 (38-126) U/L Troponin I <0.012 (0.000-0.034) ng/mL Total Protein 7.7 (6.3-8.2) g/dL Albumin 4.3 (3.5-5.0) g/dL Urine Color Urine Appearance (Clear) Urine pH (5.0-8.0) Ur Specific [place] (1.001-1.035) Urine Protein (Negative) Ur Protein Confirm Urine Glucose (UA) (Negative) Urine Ketones (Negative) Urine Blood (Negative) Urine Nitrite (Negative) Urine Bilirubin (Negative) Ur Bilirubin Confirm Urine Urobilinogen (<2.0) mg/dL Ur Leukocyte Esterase (Negative) Urine RBC (0-5) /hpf Urine WBC (0-5) /hpf Urine WBC Clumps (None) /hpf Ur Squamous Epith Cells (0-4) /hpf Urine Bacteria (None) /hpf Urine Yeast (Budding) (None) /hpf Disposition Clinical Impression: UTI (urinary tract infection), Agitation Disposition: HOME SELF-CARE Condition: Good Instructions (If sedation given, give patient instructions): Urinary Tract Infection in Women (ED) Additional Instructions: Complete antibiotic prescription and full. Return for any new, worsening, or concerning symptoms. Prescriptions: Nitrofurantoin Monohyd/M-Cryst [Macrobid] 100 mg PO Q12HR #14 cap Is patient prescribed a controlled substance at d/c from ED?: No Referrals: Unruly Beltran MD [Primary Care Provider] - 1-2 days Time of Disposition: 16:46
[2021-06-27 17:16] VITALS: BP 128/82; PULSE 70; TEMP 97.2
== END 2021-06-27 17:16 | disposition home or self-care (01) ==
LOC: EC 13:51
DX: R45.1 Restlessness and agitation (principal); N39.0 Urinary tract infection, site not specified; I25.10 Atherosclerotic heart disease of native coronary artery without angina pectoris; I11.0 Hypertensive heart disease with heart failure; I50.9 Heart failure, unspecified; F03.90 Unspecified dementia, unspecified severity, without behavioral disturbance, psychotic disturbance, mood disturbance, and anxiety; K21.9 Gastro-esophageal reflux disease without esophagitis; E78.5 Hyperlipidemia, unspecified; Z91.040 Latex allergy status; Z88.1 Allergy status to other antibiotic agents; Z88.2 Allergy status to sulfonamides; Z86.73 Personal history of transient ischemic attack (TIA), and cerebral infarction without residual deficits; Z86.718 Personal history of other venous thrombosis and embolism; Z90.710 Acquired absence of both cervix and uterus
CPT/HCPCS: 36415; 80053; 81001; 84484; 85025; 85610; 85730; 87077; 87086; 87186; 93005; 99285

== ENCOUNTER 2021-07-21 20:13 | Emergency (ER) | payer MEDICARE, BC ==
--- NOTE | 2021-07-21 20:29 | ED ---
General Adult HPI - General Stated complaint: DVT Time Seen by Provider: 07/21/21 20:27 - History of Present Illness Initial comments: Sylwia is an 85-year-old female who sent to the ER today from that he large after an ultrasound done there revealed possible DVT. Patient has dementia so history is provided by the . 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 While she was in the ICU she developed DVTs and had a Roosevelt filter in place which is still in place today. Patient spent one year hospitalized but was able to return home. The past few weeks the patient [facility], she participated in physical therapy Thursday and Thursday today this has been noted that her legs seem very swollen, ultrasound was obtained of the right lower extremity which found a DVT and she is transferred to the hospital for evaluation. Does not leave the patient has had a DVT since her hospitalization for intracerebral hemorrhage 15 years ago. - Related Data Home Medications Medication Instructions Recorded Confirmed Pravastatin Sodium [Pravachol] 20 mg PO DAILY@0800 09/17/13 06/27/21 Vitamin A 8,000 unit PO BID@0800,199909/17/13 06/27/21 Bifidobacterium Infantis [Align] 4 mg PO DAILY@1400 06/06/21 06/27/21 Calcium Carbonate [Calcium] 600 mg PO DAILY@0800 06/06/21 06/27/21 Cholecalciferol [Vitamin D3 (25 50 mcg PO HS@199906/06/21 06/27/21 Mcg = 1000 Iu)] Cranberry W/Probiotic 1 cap PO BID@0800,199906/06/21 06/27/21 Docusate [Colace] 300 mg PO HS@199906/06/21 06/27/21 Donepezil [Aricept] 10 mg PO HS@199906/06/21 06/27/21 Famotidine [Pepcid] 20 mg PO HS@199906/06/21 06/27/21 Losartan [Cozaar] 50 mg PO DAILY@0800 06/06/21 06/27/21 Melatonin 10 mg PO HS@199906/06/21 06/27/21 Memantine [Namenda] 10 mg PO BID@0800,199906/06/21 06/27/21 Metoprolol Succinate (ER) [Toprol 12.5 mg PO HS@199906/06/21 06/27/21 XL] Vitc/E/Zinc/Copper/Lutein/Zeax 1 tab PO BID@0800,199906/06/21 06/27/21 [Icaps Areds2 Tablet] amLODIPine [Norvasc] 10 mg PO DAILY@0800 06/06/21 06/27/21 cloNIDine 0.1 MG/24HR PATCH 1 patch TRANSDERM SA@0806/06/21 06/27/21 [Catapres-TTS] hydrALAZINE HCL [Apresoline] 50 mg PO TID@0800,1399,199906/06/21 06/27/21 lamoTRIgine [LaMICtal] 50 mg PO BID@0800,199906/06/21 06/27/21 D-[place] 500 mg PO DAILY@0800 06/27/21 06/27/21 Previous Rx's Medication Instructions Recorded Nitrofurantoin Monohyd/M-Cryst 100 mg PO Q12HR #14 cap 06/27/21 [Macrobid] Allergies Allergy/AdvReac Type Severity Reaction Status Date / Time aloe Allergy Per Verified 06/27/21 16:45 [place] [facility] aloe vera Allergy Unknown Verified 06/27/21 16:45 amlodipine [From Norvasc] Allergy Per Verified 06/27/21 16:45 [place] [facility]/patient takes 10mg daily amlodipine besylate Allergy Unknown Verified 06/27/21 16:45 [From Norvasc] cyclobenzaprine Allergy Unknown Verified 06/27/21 16:45 [Cyclobenzaprine] diclofenac Allergy Unknown Verified 06/27/21 16:45 hydrochlorothiazide Allergy Unknown Verified 06/27/21 16:45 [From Zestoretic] latex Allergy Rash/Hives Verified 06/27/21 16:45 levofloxacin [From Levaquin] Allergy Unknown Verified 06/27/21 16:45 lisinopril Allergy Unknown Verified 06/27/21 16:45 mesalamine [From Asacol] Allergy Unknown Verified 06/27/21 16:45 sulfamethoxazole Allergy Unknown Verified 06/27/21 16:45 [From Bactrim] trimethoprim [From Bactrim] Allergy Unknown Verified 06/27/21 16:45 Review of Systems ROS Statement: Those systems with pertinent positive or pertinent negative responses have been documented in the HPI. ROS Other: All systems not noted in ROS Statement are negative. Past Medical History Past Medical History: Coronary Artery Disease (CAD), Heart Failure, CVA/TIA, Dementia, Deep Vein Thrombosis (DVT), GERD/Reflux, Hyperlipidemia, Hypertension, Seizure Disorder Additional Past Medical History / Comment(s): covid History of Any Multi-Drug Resistant Organisms: None Reported Past Surgical History: Unable to Obtain Additional Past Surgical History / Comment(s): brain, roosevelt filter, hysterectomy Past Anesthesia/Blood Transfusion Reactions: No Reported Reaction Past Psychological History: No Psychological Hx Reported Smoking Status: Never smoker, Unknown if ever smoked Past Alcohol Use History: None Reported Past Drug Use History: None Reported General Exam - General Exam Comments Initial Comments: Physical Exam GENERAL: Patient is well-developed and well-nourished. Patient is nontoxic and well-hydrated and is in no distress. 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 EYES: PERRL, EOMI PULMONARY: Unlabored respirations. CARDIOVASCULAR: RRR Warm and well perfused extremities 2+ pitting edema bilateral lower extremities ABDOMEN: Non-distended SKIN: Pale, dry : Deferred NEUROLOGIC: Alert and oriented to self, identifies , aware she is in a hospital Normal speech MUSCULOSKELETAL: No apparent injury Course Vital Signs 07/21/21 07/21/21 07/21/21 20:25 20:35 22:36 Temperature 97.6 F 97.6 F Pulse Rate 85 89 91 Respiratory 16 16 16 Rate Blood Pressure 141/76 141/76 151/84 O2 Sat by Pulse 98 98 96 Oximetry Medical Decision Making - Medical Decision Making Patient was seen and evaluated history is obtained from the , ultrasound was obtained and reveals bilateral DVT with a DVT in the left to the femoral fully thready blood flow Ultrasound findings were discussed with vascular surgeon carton folder Dr. Briggs, he states that considering that the patient's bleeding aneurysm was 15 years ago, was coiled and she's had no additional bleeding he does feel she could be a candidate for lysis but would recommend clearance by neurosurgery prior to performing any intervention. We do not have neurosurgery capabilities at this hospital therefore the patient will require transfer. consented to transfer. Patient care was discussed with Dr. Laughlin at [facility] who accepts the transfer Disposition Clinical Impression: Deep vein thrombosis (DVT) of lower extremity, Dementia, [place] filter in place, ELECTRIC TOOL REPAIRER (ventriculoperitoneal) shunt status Disposition: OTHER INSTITUTION NOT DEFINED Condition: Serious Is patient prescribed a controlled substance at d/c from ED?: No Referrals: Unruly Beltran MD [Primary Care Provider] - 1-2 days - Out of Hospital Transfer - Req. Specs Out of Hospital Transfer - Requested Specifics: Other Emergency Center ([facility])
[2021-07-21 20:43] VITALS: RESP 16; TEMP 97.6
--- NOTE | 2021-07-21 22:25 | US ---
EXAMINATION TYPE: US venous doppler duplex LE DATE OF EXAM: 07/21/2021 10:14 PM COMPARISON: NONE CLINICAL HISTORY: edema, US at [facility] maybe DVT. edema bilateral legs, worse on the right. redness right thigh. history of DVT left leg SIDE PERFORMED: bilateral TECHNIQUE: The lower extremity deep venous system is examined utilizing real time linear array sonog mamta with graded compression, doppler sonography and color-flow sonography. VESSELS IMAGED: Common Femoral Vein Deep Femoral Vein Greater Saphenous Vein * Femoral Vein Popliteal Vein Small Saphenous Vein * Proximal Calf Veins (* superficial vessels) Right Leg: positive for DVT, right CFV extending into popliteal vein Left Leg: positive for DVT, left CFV and left femoral vein. thready flow with partial compression left femoral vein IMPRESSION: There is evidence of acute bilateral deep vein thrombosis in the femoral vein. There is a cute deep vein thrombosis in the right popliteal vein.
[2021-07-21 22:37] VITALS: BP 151/84; PULSE 91
== END 2021-07-21 23:30 | disposition other institution (70) ==
LOC: EC 20:13
DX: I82.413 Acute embolism and thrombosis of femoral vein, bilateral (principal); F03.90 Unspecified dementia, unspecified severity, without behavioral disturbance, psychotic disturbance, mood disturbance, and anxiety; I25.10 Atherosclerotic heart disease of native coronary artery without angina pectoris; E78.5 Hyperlipidemia, unspecified; I11.0 Hypertensive heart disease with heart failure; I50.9 Heart failure, unspecified; K21.9 Gastro-esophageal reflux disease without esophagitis; Z98.2 Presence of cerebrospinal fluid drainage device; Z88.1 Allergy status to other antibiotic agents; Z88.2 Allergy status to sulfonamides; Z86.73 Personal history of transient ischemic attack (TIA), and cerebral infarction without residual deficits
CPT/HCPCS: 93970; 99284